=== PATIENT | female | born 1935 | race Caucasian/White ===

== ENCOUNTER → 2016-08-09 | Outpatient (CLI) | payer OTHER ==
[~2016-08-09] MED LIST: ACET-1256 PO; ASPEC81 PO; CMD1 PO; EYE RELIEF; FRRG PO; GLC500 PO; MCR5 PO; MULT-506 PO; OXYSR10 PO; SALINE NASAL SPRAY; SALONPAS TD; SIMV10TA2 PO; [UNRECOGNIZED DRUG - OTHER]
[2016-08-09 13:55] LABS: ALB/GLOB RATIO 1.4 (0.9-2); ALT/SGPT 22 U/L (12-78); AST/SGOT 11 U/L (15-37); BLOOD UREA NITROGEN 14 mg/dl (7-18); BUN/CREATININE RATIO 18.3 (10-20); CALCIUM 8.9 mg/dl (8.5-10.1); CARBON DIOXIDE 27 mmol/L (21-32); CHLORIDE 106 mmol/L (98-107); CHOLESTEROL 135 mg/dl (0-200); CREATININE 0.76 mg/dl (0.60-1.20); GLUCOSE 139 mg/dl (70-99); POTASSIUM 4.1 mmol/L (3.5-5.1); SODIUM 142 mmol/L (136-145); TRIGLYCERIDES 123 mg/dl (0-150); VERY LOW DENSITY LIPOPROT CALC 25 mg/dl
[2016-08-09 13:56] LABS: ALKALINE PHOSPHATASE 89 U/L (45-117); CHOLESTEROL/HDL RATIO 3.4; HDL CHOLESTEROL 40 mg/dl
[2016-08-09 13:59] LABS: ESTIMATED AVERAGE GLUCOSE 163 mg/dl; HA1C FLAG Normal (Normal)
== END | disposition home or self-care (01) ==
LOC: C.LABSPEC 12:45
PROVIDERS: ATTEND Internal Medicine
DX: E11.65 Type 2 diabetes mellitus with hyperglycemia (principal); E78.5 Hyperlipidemia, unspecified

== ENCOUNTER → 2016-09-30 | Outpatient (CLI) | payer OTHER ==
--- NOTE | 2016-09-30 15:49 | MAMMOGRAPHY REPORT ---
BILATERAL DIGITAL SCREENING MAMMOGRAM WITH CAD: 09/30/2016 CLINICAL HISTORY: Routine screening. Patient has no complaints. TECHNIQUE: Bilateral CC, MLO and repeat left MLO view with anterior compression were obtained. Curr ent study was also evaluated with a Computer Aided Detection (CAD) system. COMPARISON: Comparison is made to exams dated: 09/28/2015 mammogram, 09/23/2014 mammogram, 09/17/2013 mammogram, 09/10/2012 mammogram, 09/10/2011 mammogram, and 08/16/2010 mammogram - [facility] enter. BREAST COMPOSITION: The tissue of both breasts is heterogeneously dense, which may obscure small ma sses. FINDINGS: There are moderate vascular calcifications in the breasts. Scattered benign round and rim calcifications. No suspicious mass, architectural distortion or cluster of microcalcifications is seen. IMPRESSION: ACR BI-RADS CATEGORY 1: NEGATIVE There is no mammographic evidence of malignancy. A 1 year screening mammogram is recommended. The p atient will receive written notification of the results. Approximately 10% of breast cancers are not detected with mammography. A negative mammographic repor t should not delay biopsy if a clinically suggestive mass is present. Cherise Good M.D. ay/:09/30/2016 15:35:18 Executive Receptionist: Josseline Lemus, [facility] letter sent: Normal 1/2 BI-RADS Code: ACR BI-RADS Category 1: Negative
== END | disposition home or self-care (01) ==
LOC: C.MAMM 11:18
PROVIDERS: ATTEND Internal Medicine
DX: Z12.31 Encounter for screening mammogram for malignant neoplasm of breast (principal)

== ENCOUNTER → 2016-12-13 | Outpatient (CLI) | payer OTHER ==
[2016-12-13 13:56] LABS: ESTIMATED AVERAGE GLUCOSE 166 mg/dl; HA1C FLAG Normal (Normal)
[2016-12-13 14:04] LABS: BLOOD UREA NITROGEN 13 mg/dl (7-18); BUN/CREATININE RATIO 17.6 (10-20); CARBON DIOXIDE 25 mmol/L (21-32); CHLORIDE 110 mmol/L (98-107); CREATININE 0.71 mg/dl (0.60-1.20); GLUCOSE 82 mg/dl (70-99); POTASSIUM 3.9 mmol/L (3.5-5.1); SODIUM 144 mmol/L (136-145)
[2016-12-13 14:07] LABS: CHOLESTEROL 172 mg/dl (0-200); CHOLESTEROL/HDL RATIO 4.8; HDL CHOLESTEROL 36 mg/dl; TRIGLYCERIDES 169 mg/dl (0-150); VERY LOW DENSITY LIPOPROT CALC 34 mg/dl
== END | disposition home or self-care (01) ==
LOC: C.LABSPEC 12:48
PROVIDERS: ATTEND Internal Medicine
DX: M19.90 Unspecified osteoarthritis, unspecified site (principal); E78.5 Hyperlipidemia, unspecified; E11.9 Type 2 diabetes mellitus without complications

== ENCOUNTER → 2016-12-16 | Outpatient (CLI) | payer OTHER ==
[2016-12-16 16:41] LABS: RATIO 13.1 mcg/mg (0-30.0)
== END | disposition home or self-care (01) ==
LOC: C.LABSPEC 15:12
PROVIDERS: ATTEND Internal Medicine
DX: E11.65 Type 2 diabetes mellitus with hyperglycemia (principal)

== ENCOUNTER → 2017-04-18 | Outpatient (CLI) | payer OTHER ==
[2017-04-18 14:20] LABS: BLOOD UREA NITROGEN 13 mg/dl (7-18); BUN/CREATININE RATIO 18.3 (10-20); CALCIUM 9.1 mg/dl (8.5-10.1); CARBON DIOXIDE 25 mmol/L (21-32); CHLORIDE 107 mmol/L (98-107); CREATININE 0.74 mg/dl (0.60-1.20); GLUCOSE 122 mg/dl (70-99); POTASSIUM 3.9 mmol/L (3.5-5.1); SODIUM 140 mmol/L (136-145)
[2017-04-18 14:23] LABS: CHOLESTEROL 157 mg/dl (0-200); CHOLESTEROL/HDL RATIO 3.7; HDL CHOLESTEROL 42 mg/dl; TRIGLYCERIDES 113 mg/dl (0-150); VERY LOW DENSITY LIPOPROT CALC 23 mg/dl
[2017-04-18 14:33] LABS: ESTIMATED AVERAGE GLUCOSE 163 mg/dl; HA1C FLAG Normal (Normal)
== END | disposition home or self-care (01) ==
LOC: C.LABSPEC 12:31
PROVIDERS: ATTEND Internal Medicine
DX: E11.65 Type 2 diabetes mellitus with hyperglycemia (principal); Z00.00 Encounter for general adult medical examination without abnormal findings; E78.5 Hyperlipidemia, unspecified

== ENCOUNTER → 2017-04-23 | Outpatient (CLI) | payer OTHER | END | disposition home or self-care (01) | LOC: C.LABSPEC 12:42 | PROVIDERS: ATTEND Internal Medicine | DX: Z12.11 Encounter for screening for malignant neoplasm of colon (principal) ==

== ENCOUNTER → 2017-08-20 | Outpatient (CLI) | payer OTHER ==
[2017-08-20 13:08] LABS: HEMOGLOBIN A1C 7.4 % (4.5-5.6)
[2017-08-20 13:19] LABS: ALBUMIN 3.7 gm/dl (3.4-5.0); ALT/SGPT 24 U/L (12-78); BLOOD UREA NITROGEN 11 mg/dl (7-18); CALCIUM 9.4 mg/dl (8.5-10.1); CARBON DIOXIDE 28 mmol/L (21-32); CHOLESTEROL 137 mg/dl (0-200); CREATININE 0.66 mg/dl (0.60-1.20); GLUCOSE 129 mg/dl (70-99); POTASSIUM 3.9 mmol/L (3.5-5.1); SODIUM 141 mmol/L (136-145)
[2017-08-20 13:21] LABS: ALKALINE PHOSPHATASE 94 U/L (45-117); AST/SGOT 14 U/L (15-37); LDL CHOLESTEROL (DIRECT) 86 mg/dl; TOTAL PROTEIN 6.6 gm/dl (6.4-8.2)
== END | disposition home or self-care (01) ==
LOC: C.LABSPEC 12:15
PROVIDERS: ATTEND Internal Medicine
DX: E78.5 Hyperlipidemia, unspecified (principal); E11.9 Type 2 diabetes mellitus without complications; I35.0 Nonrheumatic aortic (valve) stenosis

== ENCOUNTER → 2017-10-06 | Outpatient (CLI) | payer OTHER ==
--- NOTE | 2017-10-07 12:46 | MAMMOGRAPHY REPORT ---
BILATERAL DIGITAL SCREENING MAMMOGRAM TOMOSYNTHESIS WITH CAD: 10/06/2017 CLINICAL HISTORY: Routine screening. Patient has no complaints. TECHNIQUE: Breast tomosynthesis in addition to standard 2D mammography was performed. Current study was also evaluated with a Computer Aided Detection (CAD) system. COMPARISON: Comparison is made to exams dated: 09/30/2016 mammogram, 09/28/2015 mammogram, 09/23/2014 m ammogram, 09/17/2013 mammogram, 09/10/2012 mammogram, and 09/10/2011 mammogram - [facility]. BREAST COMPOSITION: The tissue of both breasts is heterogeneously dense, which may obscure small mas ses. FINDINGS: The parenchymal pattern is similar to prior mammograms. There are marked vascular calcifi cations in the breasts. Scattered stable round, punctate and coarse calcifications as well. No deve loping mass, architectural distortion or cluster of suspicious microcalcifications is seen in either breast. IMPRESSION: ACR BI-RADS CATEGORY 2: BENIGN There is no mammographic evidence of malignancy. A 1 year screening mammogram is recommended. The pa tient will receive written notification of the results. Approximately 10% of breast cancers are not detected with mammography. A negative mammographic report should not delay biopsy if a clinically suggestive mass is present. Cherise Good M.D. ay/:10/06/2017 16:07:40 Intermediate Frame Tender: Pratima MCCANN(R)(M), [facility] letter sent: Normal 1/2 BI-RADS Code: ACR BI-RADS Category 2: Benign
== END | disposition home or self-care (01) ==
LOC: C.MAMM 10:54
PROVIDERS: ATTEND Internal Medicine
DX: Z12.31 Encounter for screening mammogram for malignant neoplasm of breast (principal)

== ENCOUNTER 2021-01-28 12:44 | Observation (INO) ==
[2021-01-28] MEDS ORDERED: ALBUTEROL HFA 8 GM INHALER INH ONE (13:01)
[2021-01-28] MEDS ORDERED: SODIUM CHLORIDE 0.9% 1000ML 1,000 ML IV ONE (13:01)
[2021-01-28] MEDS ORDERED: guaiFENesin 600 MG TABCR PO STA (13:01)
[2021-01-28] MEDS ORDERED: ACETAMINOPHEN 1,000 MG/100 ML VIAL IV STA (13:01)
--- NOTE | 2021-01-28 13:28 | Emergency Department Note ---
Impression & Plan COVID-19, Acute UTI, Dehydration ED Provider Note NAME: DOMINICK HALL AGE: 85 SEX: F ARRIVES VIA: Ambulance INFORMANT: Patient, ED PROVIDER(S): Ronny Guillory MD CHIEF COMPLAINT: Weakness, sob, covid-19 PLAN: Disposition: Admit MEDICAL DECISION MAKING: The patient is a pleasant 85-year-old woman with a past medical history of diabetes, hyperlipidemia who presents to the emergency department with shortness of breath and body aches after being seen the emergency department on 01/26 diagnosed with COVID-19 after developing symptoms of congestion on 01/24. She reports she was trying to use the pulse oximeter she was given an did not think she could get it to work and when she called the helpline she was instructed to call 911. Upon EMS arrival her O2 saturation was normal however she was brought to the hospital for evaluation. She reports worsening body aches particularly in her legs. She reports decreased appetite and nausea but denies vomiting. She denies diarrhea. She denies any urinary symptoms. On arrival the patient is anxious appearing but no acute distress, afebrile with stable vital signs. She appears clinically dry. She has a scant intermittent wheeze and lungs are otherwise clear. Abdomen is benign. There is no lower extremity edema, coloration or tenderness. WBC 2.5 with lymphopenia 0.42 consistent with patient's known COVID-19 infection. Hemoglobin and platelets within normal limits. Chemistry without metabolic acidosis. BUN/creatinine> 30 consistent with the patient's clinical dry appearance. Glucose was 59 and so the patient was given food and juice. Lecture lites and LFTs without significant abnormality. Troponin 0 0.027, within normal limits. Lipase is not elevated. UA is suspicious for infection with nitrites, leukoesterase, WBCs and 4+ bacteria albeit with epithelial cells present. COVID-19 PCR was repleted and confirms the patient's previously diagnosed COVID-19 infection. Upon reevaluation patient did feel somewhat improved after IV fluid hydration, APAP, guaifenesin and albuterol MDI. She was treated for UTI with initial dose of ceftriaxone. I did review the patient's findings with her as well as her daughter over the phone. Ultimately the patient's daughter was concerned about her weakness in the setting of her Covid and UTI and given that the patient lives at home with her grandson who is suffering himself from significant Covid symptoms she did not feel she was safe to go home at this time. Patient was ultimately agreeable with plan for admission. Case was discussed with JOHN Rasmussen hospitalist, who will evaluate the patient for admission. Triage Nursing notes reviewed and agree them. Additional history obtained from daughter. Prior medical records reviewed Vital Signs: reviewed and remarkable for no significant abnormalities Differential diagnosis: Infection, dehydration, metabolic abnormality, hypo/hyperglycemia, electrolyte disturbance, anemia, hypoxia, cardiac sources, intracerebral event, toxicologic, neurologic, as well as other pathologies. ER treatment provided: See below. Diagnostics interpreted by me: ECG: Normal sinus rhythm, 68 bpm, right bundle branch block, no overt ST elev ation or depression, QTC 495, QRS 122. Cardiac Monitoring: An order for continuous cardiac monitoring was placed and demonstrated normal sinus rhythm, 60 bpm, no ectopy. Laboratory studies: See below Imaging studies: See below Consultation(s): Case was discussed with JOHN Rasmussen hospitalist, who will evaluate the patient for admission. HPI: The patient is a pleasant 85-year-old woman with a past medical history of diabetes, hyperlipidemia who presents to the emergency department with shortness of breath and body aches after being seen the emergency department on 01/26 diagnosed with COVID-19 after developing symptoms of congestion on 01/24. She reports she was trying to use the pulse oximeter she was given an did not think she could get it to work and when she called the helpline she was instructed to call 911. Upon EMS arrival her O2 saturation was normal however she was brought to the hospital for evaluation. She reports worsening body aches particularly in her legs. She reports decreased appetite and nausea but denies vomiting. She denies diarrhea. She denies any urinary symptoms. ROS: See above HPI for pertinent positives & negatives. A total of 10 systems reviewed and were otherwise negative. PAST MEDICAL HISTORY:See Below PAST SURGICAL HISTORY:See Below FAMILY HISTORY:See Below SOCIAL HISTORY:See Below HOME MEDICATIONS:See Below ALLERGIES:See Below VITALS:See Below PHYSICAL EXAMINATION: GENERAL: Awake, alert, uncomfortable/fatigued-appearing, in no distress HENT: Normocephalic, atraumatic. Oropharynx with dry mucous membranes and otherwise unremarkable. EYES: Normal conjunctiva. Sclera non-icteric. NECK: Supple. No nuchal rigidity. FROM. No JVD. RESPIRATORY: Scant intermittent wheeze and lungs are otherwise clear CARDIAC: Regular rate, normal rhythm. Extremities warm and well perfused. Pulses equal. ABDOMEN: Soft, non-distended. No tenderness to palpation. No rebound or guarding. No masses. RECTAL: Deferred. MUSCULOSKELETAL: Chest examination reveals no tenderness. The back is sy mmetrical on inspection without obvious abnormality. There is no CVA tenderness to palpation. No joint edema. LOWER EXTREMITIES: Calves are equal size bilaterally and non-tender. No edema. No discoloration. NEURO: Normal sensorium. No sensory or motor deficits noted. SKIN: No rash or jaundice noted. 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) COVID-19 Diabetes mellitus (02/16/11) Kidney stone (02/16/11) Family History Other Family history non-contributory Social History Smoking Status: Never smoker Hx Alcohol Use: No Hx Substance Use: No Preferred Language: Georgian Feels Safe at Home: Yes Allergies Allergies Allergy/AdvReac Type Severity Reaction Status Date / Time No Known Allergies Allergy Unverified 01/28/21 15:12 Home Meds Home Medications Medication Instructions Recorded Confirmed glipizide 10 mg tablet 20 mg PO BID 01/26/21 01/28/21 metformin 500 mg tablet 500 mg PO QAM 01/26/21 01/28/21 metformin 850 mg tablet 850 mg PO QPM 01/26/21 01/28/21 propylene glycol 0.6 % eye drops 1 drp OPHTHALMIC (EYE) QID PRN 01/26/21 01/28/21 (Systane Balance) simvastatin 10 mg tablet 10 mg PO DAILY 01/26/21 01/28/21 sodium chloride 0.65 % nasal spray 1 spray INTRANASAL BID PRN 01/26/21 01/28/21 aerosol (Saline Mist) Results & Data (ED) Vital Signs Vital Signs - 24 hr 01/28/21 13:00 01/28/21 13:14 01/28/21 13:30 Temperature 36.6 C Temperature Source Oral Pulse Rate 68 66 Pulse Rate [Radial] Pulse Rate from SpO2 Sensor 67 Respiratory Rate 27 H 19 Respiratory Depth Normal Respiratory Pattern Regular Blood Pressure 115/58 L 104/59 L Blood Pressure [Left Arm] Blood Pressure Mean 77 74 Blood Pressure Mean [Left Arm] Pulse Oximetry 98 98 99 Oxygen Delivery Method Room Air Room Air Room Air Sepsis Recent Fever Within 48 Hours No Sepsis New/Unexplained Change in Mental Status No Sepsis Action Taken by Nursing No Action Required 01/28/21 14:00 01/28/21 15:45 01/28/21 17:51 Temperature Temperature Source Pulse Rate 66 Pulse Rate [Radial] 81 81 Pulse Rate from SpO2 Sensor 66 Respiratory Rate 28 H 16 16 Respiratory Depth Respiratory Pattern Blood Pressure 110/70 Blood Pressure [Left Arm] 120/63 138/68 Blood Pressure Mean 83 Blood Pressure Mean [Left Arm] 82 91 Pulse Oximetry 98 96 96 Oxygen Delivery Method Room Air Room Air Room Air Sepsis Recent Fever Within 48 Hours Sepsis New/Unexplained Change in Mental Status Sepsis Action Taken by Nursing Laboratory Data Attestation: I reviewed the patient's lab results. Result diagrams: 01/28/21 13:15 01/28/21 13:15 Lab Results 01/28/21 01/28/21 01/28/21 Range/Units 13:15 13:15 13:15 WBC 2.57 L (4.8-10.8) K/uL RBC 4.08 L (4.2-5.4) M/uL Hgb 12.5 (12.0-16.0) g/dL Hct 36.0 L (37-47) % MCV 88.2 (80-100) fL MCH 30.6 (25-34) pg MCHC 34.7 (32-36) g/dL RDW Std Deviation 41.1 (36.4-46.3) fL RDW Coeff of Tabatha 12.7 (11.5-14.5) % Plt Count 138 (130-400) K/uL MPV 10.1 (7.4-10.4) fL Immature Gran % (Auto) 0.0 % Neut % (Auto) 68.9 % Lymph % (Auto) 16.3 % [place] % (Auto) 14.4 % Eos % (Auto) 0.0 % Baso % (Auto) 0.4 % Neut # (Auto) 1.77 (1.4-6.5) K/uL Lymph # (Auto) 0.42 L (1.2-3.4) K/uL [place] # (Auto) 0.37 (0.11-0.59) K/uL Eos # (Auto) 0.00 (0-0.5) K/uL Baso # (Auto) 0.01 (0-0.2) K/uL Immature Gran # (Auto) 0.00 (0.00-0.02) K/uL PT 10.3 (9.0-12.0) Seconds INR 1.0 (0.9-1.1) APTT 30.0 (21.0-31.0) Seconds PTT Ratio 1.1 Sodium 136 (136-145) mmol/L Potassium 3.8 (3.5-5.1) mmol/L Chloride 102 (98-107) mmol/L Carbon Dioxide 22 (21-32) mmol/L Anion Gap 12.0 H (3-11) BUN 20 H (7-18) mg/dl Creatinine 0.60 (0.6-1.2) mg/dl Est Cr Clr Drug Dosing 57.9 ml/min Est GFR ( Amer) 95.7 ml/min Est GFR (Non-Af Amer) 82.5 ml/min BUN/Creatinine Ratio 33.1 H (10-20) Glucose 59 L (70-99) mg/dl Calcium 8.9 (8.5-10.1) mg/dl Phosphorus 3.2 (2.5-4.9) mg/dl Magnesium 1.9 (1.8-2.4) mg/dl Total Bilirubin 0.5 (0.2-1) mg/dl Direct Bilirubin TNP AST 36 (15-37) U/L ALT 25 (12-78) U/L Alkaline Phosphatase 70 (45-117) U/L Total Creatine Kinase 221 H (26-192) U/L Troponin I 0.027 (0-0.045) ng/ml Total Protein 6.3 L (6.4-8.2) gm/dl Albumin 3.3 L (3.4-5.0) gm/dl Globulin 3.0 (2.5-4.0) gm/dl Albumin/Globulin Ratio 1.1 (0.9-2) Lipase 85 (73-393) U/L Specimen Hemolysis Urine Color Urine Appearance (Clear) Urine pH (4.5-7.5) Ur Specific [place] (1.000-1.030) Urine Protein (Negative) Urine Glucose (UA) (Negative) Urine Ketones (Negative) Urine Blood (Negative) Urine Nitrite (Negative) Urine Bilirubin (Negative) Urine Urobilinogen (Negative) Ur Leukocyte Esterase (Negative) Urine WBC (Auto) (0-5) /hpf Urine RBC (Auto) (0-4) /hpf U Hyaline Cast (Auto) (0-5) /lpf U Epithel Cells (Auto) (0-5) /lpf Urine Bacteria (Auto) (Negative) COVID-19 Eval Order SARS-CoV-2 (PCR) (Negative) 01/28/21 01/28/21 01/28/21 Range/Units 14:01 14:01 14:01 WBC (4.8-10.8) K/uL RBC (4.2-5.4) M/uL Hgb (12.0-16.0) g/dL Hct (37-47) % MCV (80-100) fL MCH (25-34) pg MCHC (32-36) g/dL RDW Std Deviation (36.4-46.3) fL RDW Coeff of Tabatha (11.5-14.5) % Plt Count (130-400) K/uL MPV (7.4-10.4) fL Immature Gran % (Auto) % Neut % (Auto) % Lymph % (Auto) % [place] % (Auto) % Eos % (Auto) % Baso % (Auto) % Neut # (Auto) (1.4-6.5) K/uL Lymph # (Auto) (1.2-3.4) K/uL [place] # (Auto) (0.11-0.59) K/uL Eos # (Auto) (0-0.5) K/uL Baso # (Auto) (0-0.2) K/uL Immature Gran # (Auto) (0.00-0.02) K/uL PT (9.0-12.0) Seconds INR (0.9-1.1) APTT (21.0-31.0) Seconds PTT Ratio Sodium (136-145) mmol/L Potassium (3.5-5.1) mmol/L Chloride (98-107) mmol/L Carbon Dioxide (21-32) mmol/L Anion Gap (3-11) BUN (7-18) mg/dl Creatinine (0.6-1.2) mg/dl Est Cr Clr Drug Dosing ml/min Est GFR ( Amer) ml/min Est GFR (Non-Af Amer) ml/min BUN/Creatinine Ratio (10-20) Glucose (70-99) mg/dl Calcium (8.5-10.1) mg/dl Phosphorus (2.5-4.9) mg/dl Magnesium (1.8-2.4) mg/dl Total Bilirubin (0.2-1) mg/dl Direct Bilirubin AST (15-37) U/L ALT (12-78) U/L Alkaline Phosphatase (45-117) U/L Total Creatine Kinase (26-192) U/L Troponin I (0-0.045) ng/ml Total Protein (6.4-8.2) gm/dl Albumin (3.4-5.0) gm/dl Globulin (2.5-4.0) gm/dl Albumin/Globulin Ratio (0.9-2) Lipase (73-393) U/L Specimen Hemolysis Urine Color Yellow Urine Appearance Clear (Clear) Urine pH 6.0 (4.5-7.5) Ur Specific [place] 1.007 (1.000-1.030) Urine Protein Negative (Negative) Urine Glucose (UA) Negative (Negative) Urine Ketones 2+ H (Negative) Urine Blood Negative (Negative) Urine Nitrite Positive A (Negative) Urine Bilirubin Negative (Negative) Urine Urobilinogen Negative (Negative) Ur Leukocyte Esterase 2+ H (Negative) Urine WBC (Auto) 10-30 H (0-5) /hpf Urine RBC (Auto) 0-4 (0-4) /hpf U Hyaline Cast (Auto) 0 (0-5) /lpf U Epithel Cells (Auto) 20-30 H (0-5) /lpf Urine Bacteria (Auto) 4+ H (Negative) COVID-19 Eval Order Covid19 at [facility] SARS-CoV-2 (PCR) POSITIVE A* (Negative) Administered Medications Discontinued Medications Albuterol (Albuterol Hfa 8 Gm Inhaler) 2 puffs INH NOW ONE Stop: 01/28/21 13:02 Last Admin: 01/28/21 13:54 Dose: 2 puffs Documented by: [id number] Guaifenesin (Guaifenesin 600 Mg Tabcr) 600 mg PO NOW STA Stop: 01/28/21 13:02 Last Admin: 01/28/21 13:54 Dose: 600 mg Documented by: [id number] Acetaminophen (Ofirmev) 1,000 mg in 100 mls @ 400 mls/hr IV NOW STA Stop: 01/28/21 13:15 Last Infusion: 01/28/21 14:08 Dose: 0 mls/hr Documented by: [id number] Admin: 01/28/21 13:53 Dose: 400 mls/hr Documented by: [id number] Sodium Chloride (Nss 1000ml) 1,000 mls @ 999 mls/hr IV .Q1H1M ONE Stop: 01/28/21 14:01 Last Infusion: 01/28/21 14:21 Dose: 0 mls/hr Documented by: [id number] Admin: 01/28/21 13:17 Dose: 999 mls/hr Documented by: [id number] Ceftriaxone Sodium (Rocephin) 2,000 mg in 70 mls @ 140 mls/hr IV NOW STA Stop: 01/28/21 15:44 Last Infusion: 01/28/21 16:15 Dose: 0 mls/hr Documented by: [id number] Admin: 01/28/21 15:45 Dose: 140 mls/hr Documented by: [id number] Imaging Data Radiologist's Impression: Chest X-Ray 01/28/21 13:03 SINGLE VIEW CHEST CLINICAL HISTORY: Atypical chest pain. Covid FINDINGS: An AP, portable, upright chest radiograph is compared to study dated 01/26/2021 and correlated with chest CT dated 01/22/2011. The heart is enlarged noting atherosclerotic calcification of the thoracic aorta. The pulmonary vasculature is noncongested. Chronic interstitial thickening is similar to previous. Bibasilar opacities likely represent scarring/atelectasis. No large pleural effusion or pneumothorax is seen. The skeletal structures are osteopenic. The bony thorax is grossly intact. IMPRESSION: 1. Cardiomegaly without radiographic evidence of congestive failure. 2. Dependent airspace opacities likely represent scarring/atelectasis. Correlate clinically for evidence of a superimposed infectious/inflammatory pneumonitis. ACT 112: Negative or not required by law. Electronically signed by: Rudy Peters M.D. 01/28/2021 2:49 PM Discharge Plan Visit Data Chief Complaint: Shortness of Breath/Dyspnea Stated Complaint: Shortness of Breath ED Provider: Ronny Guillory Discharge Problem: COVID-19, Acute UTI, Dehydration Discharge Instructions Interventions: ED Discharge Assessment Last Done: 01/28/21 22:17
[2021-01-28 13:31] LABS: Basophils # (auto) 0.01 K/uL (0-0.2); Basophils % (auto) 0.4 %; Hemoglobin 12.5 g/dL (12.0-16.0); Lymphocytes # (auto) 0.42 K/uL (1.2-3.4); Lymphocytes % (auto) 16.3 %; Mean Corpuscular Hemoglobin 30.6 pg (25-34); Mean Corpuscular Hgb Conc 34.7 g/dL (32-36); Mean Corpuscular Volume 88.2 fL (80-100); Mean Platelet Volume 10.1 fL (7.4-10.4); Monocytes # (auto) 0.37 K/uL (0.11-0.59); Monocytes % (auto) 14.4 %; Neutrophils # (auto) 1.77 K/uL (1.4-6.5); Neutrophils % (auto) 68.9 %; Platelet Count 138 K/uL (130-400); RDW Coefficient of Variation 12.7 % (11.5-14.5); RDW Standard Deviation 41.1 fL (36.4-46.3); Red Blood Count 4.08 M/uL (4.2-5.4); White Blood Count 2.57 K/uL (4.8-10.8)
[2021-01-28 13:43] LABS: Partial Thromboplastin Ratio 1.1; Prothrombin Time 10.3 Seconds (9.0-12.0)
[2021-01-28 14:04] LABS: Alanine Aminotransferase 25 U/L (12-78); Albumin Globulin Ratio 1.1 (0.9-2); Albumin Level 3.3 gm/dl (3.4-5.0); Alkaline Phosphatase 70 U/L (45-117); Aspartate Aminotransferase 36 U/L (15-37); BUN Creatinine Ratio 33.1 (10-20); Bilirubin,Total 0.5 mg/dl (0.2-1); Blood Urea Nitrogen 20 mg/dl (7-18); Calcium 8.9 mg/dl (8.5-10.1); Carbon Dioxide 22 mmol/L (21-32); Chloride 102 mmol/L (98-107); Creatine Kinase 221 U/L (26-192); Creatinine Clr Calc Pharmacy 57.9 ml/min; Est GFR (African American) 95.7 ml/min; Est GFR (Non-African American) 82.5 ml/min; Glucose 59 mg/dl (70-99); Lipase 85 U/L (73-393); Magnesium 1.9 mg/dl (1.8-2.4); Phosphorus 3.2 mg/dl (2.5-4.9); Potassium 3.8 mmol/L (3.5-5.1); Sodium 136 mmol/L (136-145); Total Protein 6.3 gm/dl (6.4-8.2); Troponin I 0.027 ng/ml (0-0.045)
[2021-01-28 14:33] LABS: Appearance Urine Clear (Clear); Bacteria Urine Automated 4+ (Negative); Bilirubin Urine Negative (Negative); Blood Urine Negative (Negative); Cast Urine Automated 0 /lpf (0-5); Color Urine Yellow; Epithelial Cell Urine Auto 20-30 /lpf (0-5); Glucose Urine UA Negative (Negative); Ketones Urine 2+ (Negative); Leukocyte Esterase Urine 2+ (Negative); Nitrite Urine Positive (Negative); Protein Urine Negative (Negative); RBC Urine Automated 0-4 /hpf (0-4); Specific Gravity Urine 1.007 (1.000-1.030); Urobilinogen Urine Negative (Negative)
--- NOTE | 2021-01-28 14:51 | XRay Report ---
SINGLE VIEW CHEST CLINICAL HISTORY: Atypical chest pain. Covid FINDINGS: An AP, portable, upright chest radiograph is compared to study dated 01/26/2021 and correlat ed with chest CT dated 01/22/2011. The heart is enlarged noting atherosclerotic calcification of the t horacic aorta. The pulmonary vasculature is noncongested. Chronic interstitial thickening is similar to previous. Bibasilar opacities likely represent scarring/atelectasis. No large pleural effusion or pneumothorax is seen. The skeletal structures are osteopenic. The bony thorax is grossly intact. IMPRESSION: 1. Cardiomegaly without radiographic evidence of congestive failure. 2. Dependent airspace opacities likely represent scarring/atelectasis. Correlate clinically for evide nce of a superimposed infectious/inflammatory pneumonitis. ACT 112: Negative or not required by law. Electronically signed by: Rudy Peters M.D. 01/28/2021 2:49 PM
[2021-01-28] MEDS ORDERED: cefTRIAXone SODIUM 2,000 MG/70 ML BAG IV STA (15:15)
--- NOTE | 2021-01-28 20:10 | History & Physical Report ---
Date of Service January 28, 2021 Assessment & Plan (1) Pneumonia due to 2019 novel coronavirus: Plan: Jeannie is a 85-year-old female with a past medical history of type 2 diabetes who presents to the hospital with concern for weakness in the setting of Covid. Weakness, fatigue 2/2 Covid pneumonia No hypoxia Afebrile in ER Poor p.o. intake, volume depleted - XR: Cardiomegaly without radiographic evidence of congestive failure. Dependent airspace opacities likely represent scarring/atelectasis. Correlate clinically for evidence of a superimposed infectious/inflammatory pneumonitis. Concern from family for inadequate p.o. intake and inability to provide safe en vironment at home due to patient's weakness Admit to Covid unit for observation No wheezing on exam Incentive spirometry, flutter as tolerated SPO2 goal 90% PT/OT Troponin normal (2) Diabetes mellitus: Plan: Type 2 diabetes mellitus Hold home antiglycemic's Lantus 6 units, correction factor 65, carb ratio 22 Glucose checks AC/at bedtime BMP daily (3) Elevated CK: Plan: Mildly elevated CK Patient reports was in bed for 2 days, slept most of the time and did not eat ? Mild rhabdo Trend CK, BMP daily, IV fluid maintenance support (4) HLD (hyperlipidemia): Plan: HLD Continue simvastatin 10 mg daily (5) Asymptomatic bacteriuria: Plan: Asymptomatic bacteriuria UA on admission with bacteria, leukocyte esterase, nitrates, ketones but large amounts of epithelial cells Patient reports no dysuria, increased frequency, change in urination, flank pain No leukocytosis Received 1 dose of Rocephin on ER admission Defer additional antibiotics, follow clinically DVT PPx: COVID Dosed Lovenox Dispo: Med/Surg Diet: Regular, NSS+KCL 100cc/hr while PO improving CODE STATUS: Full Code History of Present Illness Chief Complaint: Weakness Primary Care Provider: Yuri Michael MD Jeannie is a 85-year-old female with a past medical history of type 2 diabetes who presents to the hospital with concern for weakness in the setting of Covid. Jeannie areports symptoms began Friday with general malaise, decreased appetite, and some nausea. Was seen at the ER and was diagnosed with COVID yesterday and was discharged home. No fevers/chills, but endorses being generally cold. Endorses shortness of breath when 'uptight or anxious' no shortness of breath at rest. Reports she had diarrhea last night, more formed today. No chest pain, no chest pressure, no palpitations. Reports decreased PO intake, no PO intake x2 days and 'all I did was sleep.' She endorses decreased appetite, denies abdominal pain. Reports that she was too weak and wiped out to get out of bed for 2 days, she lives with her grandson at home and can normally ambulate independently but her family expressed concern that she was unsafe for home and they were not able to care for her especially since her grandson also has Covid at this time. Versus lower extremity muscle aches/cramps. She reports she has been urinating normally, and has not had any dysuria, urinary frequency, urinary retention, or other urinary symptoms. Medical History: Reviewed Surgical History: Reviewed Family History: Reviewed Allergies: No known drug allergies Social History: Denies tobacco, alcohol, recreational drug use. Lives with her grandson, independently ambulatory at baseline CODE STATUS: Full code discussed with patient Allergies Allergy/AdvReac Type Severity Reaction Status Date / Time No Known Allergies Allergy Unverified 01/28/21 15:12 Home Medications Medication Instructions Recorded Confirmed Type glipizide 10 mg tablet 20 mg PO BID 01/26/21 01/28/21 History metformin 500 mg tablet 500 mg PO QAM 01/26/21 01/28/21 History metformin 850 mg tablet 850 mg PO QPM 01/26/21 01/28/21 History propylene glycol 0.6 % eye drops 1 drp OPHTHALMIC (EYE) QID PRN 01/26/21 01/28/21 History (Systane Balance) simvastatin 10 mg tablet 10 mg PO DAILY 01/26/21 01/28/21 History sodium chloride 0.65 % nasal spray 1 spray INTRANASAL BID PRN 01/26/21 01/28/21 History aerosol (Saline Mist) Past Med/Surg History Medical History 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) Diabetes mellitus (02/16/11) Kidney stone (02/16/11) Social History (Updated 01/28/21 @ 20:12 by Prabhu Falcon MD) Smoking Status: Never smoker Hx Alcohol Use: No Hx Substance Use: No Preferred Language: Syriac Feels Safe at Home: Yes Review of Systems Review of Systems: Constitutional: See HPI Eyes: Denies vision change ENT: Denies ear pain, sore throat, sinus pain Cardiovascular: Denies Chest pain, chest pressure, palpitations, extremity swelling Respiratory: Denies shortness of breath, cough, sputum production, difficulty breathing Gastrointestinal: See HPI Genitourinary: Denies dysuria, urinary frequency Musculoskeletal: See HPI Integumentary:Denies acute rash, lesions, bruising Neurological: Endorses some mild neuropathy without numbness in her left foot arch, otherwise denies headache, numbness, tingling, focal weakness Physical Exam Physical Exam: General: A&Ox3. NAD. Cooperative. HEENT: Atraumatic, normocephalic. Pulm: CTAB A&P. -wheezes, -rales, -rhonchi. Symmetrical chest rise. No increase work of breathing. No respiratory distress. Cardiac: RRR, -mrg. Radial pulses intact and symmetrical. Abdominal: Nontender, nondistended, soft. BS present. CRANIAL NERVES: II: Pupils equal and reactive, no relative afferent pupillary defect, no VF cuts III, IV, : EOM intact, no gaze preference or deviation, no nystagmus. V: normal sensation in V1, V2, and V3 segments bilaterally VII: no asymmetry, no nasolabial fold flattening VIII: normal hearing to speech IX, X: normal palatal elevation, no uvular deviation XI: 5/5 head turn and 5/5 shoulder shrug bilaterally XII: midline tongue protrusion MOTOR: RUE: 5/5 Elbow flexion/extension, wrist flexion/extension 5/5 robotics software engineer strength, finger flexion/extension, interosseus LUE: 5/5 Elbow flexion/extension, wrist flexion/extension 5/5 robotics software engineer strength, finger flexion/extension, interosseus RLE: 5/5 to hip flexion, ankle dorsiflexion/plantarflexion LLE: 5/5 to hip flexion, ankle dorsiflexion/plantarflexion SENSORY: Normal to touch in upper and lower extremities without deficit or asymmetry Results & Data Results & Data ([facility]) Vital Signs (Past 12 Hours) Vital Signs Temp Pulse Pulse Resp BP BP Pulse Ox 01/28/21 17:51 81 16 138/68 96 01/28/21 15:45 81 16 120/63 96 01/28/21 14:00 66 28 H 110/70 98 01/28/21 13:30 66 19 104/59 L 99 01/28/21 13:14 98 01/28/21 13:00 36.6 C 68 27 H 115/58 L 98 Laboratory Results Abnormal lab results 01/28/21 01/28/21 01/28/21 Range/Units 13:15 13:15 14:01 WBC 2.57 L (4.8-10.8) K/uL RBC 4.08 L (4.2-5.4) M/uL Hct 36.0 L (37-47) % Lymph # (Auto) 0.42 L (1.2-3.4) K/uL Anion Gap 12.0 H (3-11) BUN 20 H (7-18) mg/dl BUN/Creatinine Ratio 33.1 H (10-20) Glucose 59 L (70-99) mg/dl Total Creatine Kinase 221 H (26-192) U/L Total Protein 6.3 L (6.4-8.2) gm/dl Albumin 3.3 L (3.4-5.0) gm/dl Urine Ketones 2+ H (Negative) Urine Nitrite Positive A (Negative) Ur Leukocyte Esterase 2+ H (Negative) Urine WBC (Auto) 10-30 H (0-5) /hpf U Epithel Cells (Auto) 20-30 H (0-5) /lpf Urine Bacteria (Auto) 4+ H (Negative) SARS-CoV-2 (PCR) (Negative) 01/28/21 Range/Units 14:01 WBC (4.8-10.8) K/uL RBC (4.2-5.4) M/uL Hct (37-47) % Lymph # (Auto) (1.2-3.4) K/uL Anion Gap (3-11) BUN (7-18) mg/dl BUN/Creatinine Ratio (10-20) Glucose (70-99) mg/dl Total Creatine Kinase (26-192) U/L Total Protein (6.4-8.2) gm/dl Albumin (3.4-5.0) gm/dl Urine Ketones (Negative) Urine Nitrite (Negative) Ur Leukocyte Esterase (Negative) Urine WBC (Auto) (0-5) /hpf U Epithel Cells (Auto) (0-5) /lpf Urine Bacteria (Auto) (Negative) SARS-CoV-2 (PCR) POSITIVE A* (Negative) Diagnostic Findings Chest X-Ray 01/28/21 13:03 SINGLE VIEW CHEST CLINICAL HISTORY: Atypical chest pain. Covid FINDINGS: An AP, portable, upright chest radiograph is compared to study dated 01/26/2021 and correlated with chest CT dated 01/22/2011. The heart is enlarged noting atherosclerotic calcification of the thoracic aorta. The pulmonary vasculature is noncongested. Chronic interstitial thickening is similar to previous. Bibasilar opacities likely represent scarring/atelectasis. No large pleural effusion or pneumothorax is seen. The skeletal structures are osteopenic. The bony thorax is grossly intact. IMPRESSION: 1. Cardiomegaly without radiographic evidence of congestive failure. 2. Dependent airspace opacities likely represent scarring/atelectasis. Correlate clinically for evidence of a superimposed infectious/inflammatory pneumonitis. ACT 112: Negative or not required by law. Electronically signed by: Rudy Peters M.D. 01/28/2021 2:49 PM Code Status & VTE Plan Code Status Full PG Care Time/CCT Total # of Minutes Spent Total Time Spent with Patient: Total time spent is greater than 50% in coordination of care (as documented) at patient's floor/unit and/or counseling patient: Coding Level of Care Code 04129 Initial Inpt Care Lvl 3 Diagnoses Pneumonia due to 2019 novel coronavirus U07.1; J12.82 Diabetes mellitus E11.9 Elevated CK R74.8 HLD (hyperlipidemia) E78.5 Asymptomatic bacteriuria R82.71
[2021-01-28] MEDS ORDERED: GLUCOSE 40% GEL 15 GM TUBE PO PRN (22:37)
[2021-01-28] MEDS ORDERED: GLUCOSE 10 TABS/TUBE PO PRN (22:37)
[2021-01-28] MEDS ORDERED: DEXTROSE 50% 50 ML SYRINGE IV PRN (22:37)
[2021-01-28] MEDS ORDERED: GLUCAGON FOR INJ 1 MG VIAL SQ PRN (22:37)
[2021-01-28] MEDS: CARBOHYDRATES FOR HYPOGLYCEMIA PO PRN (22:45)
[2021-01-28] MEDS: POTASSIUM CHLORIDE 10 MEQ in SODIUM CHLORIDE 0.9% 1000ML 1,000 ML IV SCH (23:01)
[2021-01-28] MEDS: ENOXAPARIN INJ 40 MG/0.4 ML SYR SQ SCH (23:02)
[2021-01-28] MEDS: INSULIN ASPART 100 UNITS/ML 3 ML PEN SC SCH (23:04)
[2021-01-29] MEDS: ACETAMINOPHEN 325 MG TAB PO PRN ×2 (00:02→08:22)
[2021-01-29] MEDS: INSULIN GLARGINE SOLOSTAR 100 UNITS/ML 3 ML PEN SC SCH ×3 (00:13→21:26)
[2021-01-29 07:05] LABS: Hematocrit (blood only) 33.9 % (37-47); Hemoglobin 11.4 g/dL (12.0-16.0); Mean Corpuscular Hemoglobin 30.4 pg (25-34); Mean Corpuscular Hgb Conc 33.6 g/dL (32-36); Mean Corpuscular Volume 90.4 fL (80-100); Mean Platelet Volume 10.4 fL (7.4-10.4); Platelet Count 112 K/uL (130-400); RDW Standard Deviation 43.1 fL (36.4-46.3); Red Blood Count 3.75 M/uL (4.2-5.4); White Blood Count 1.66 K/uL (4.8-10.8)
[2021-01-29 07:32] LABS: Basophils # (auto) 0.01 K/uL (0-0.2); Basophils % (auto) 0.6 %; Eosinophils # (auto) 0.01 K/uL (0-0.5); Eosinophils % (auto) 0.6 %; Lymphocytes # (auto) 0.55 K/uL (1.2-3.4); Lymphocytes % (auto) 33.1 %; Monocytes # (auto) 0.16 K/uL (0.11-0.59); Monocytes % (auto) 9.6 %; Neutrophils # (auto) 0.93 K/uL (1.4-6.5); Neutrophils % (auto) 56.1 %
[2021-01-29 07:43] LABS: BUN Creatinine Ratio 17.9 (10-20); Creatinine Clr Calc Pharmacy 56.3 ml/min; Est GFR (African American) 95.1 ml/min; Est GFR (Non-African American) 82.1 ml/min; Potassium 3.8 mmol/L (3.5-5.1)
[2021-01-29] MEDS: INSULIN ASPART 100 UNITS/ML 3 ML PEN SC SCH ×4 (07:48→21:26)
[2021-01-29] MEDS: SIMVASTATIN 10 MG TAB PO SCH (08:22)
[2021-01-29] MEDS: POTASSIUM CHLORIDE 10 MEQ in SODIUM CHLORIDE 0.9% 1000ML 1,000 ML IV SCH (09:24)
[2021-01-29] MEDS: ENOXAPARIN INJ 40 MG/0.4 ML SYR SQ SCH ×2 (11:23→21:25)
--- NOTE | 2021-01-29 20:55 | Hospitalist Progress Note ---
Date of Service January 29, 2021 Assessment & Plan (1) Pneumonia due to 2019 novel coronavirus: Plan: Jeannie is a 85-year-old female with a past medical history of type 2 diabetes who presents to the hospital with concern for weakness in the setting of Covid. Weakness, fatigue 2/2 Covid pneumonia No hypoxia Afebrile in ER Poor p.o. intake, volume depleted - XR: Cardiomegaly without radiographic evidence of congestive failure. Dependent airspace opacities likely represent scarring/atelectasis. Correlate clinically for evidence of a superimposed infectious/inflammatory pneumonitis. Concern from family for inadequate p.o. intake and inability to provide safe en vironment at home due to patient's weakness Admit to Covid unit for observation No wheezing on exam Incentive spirometry, flutter as tolerated SPO2 goal 90% PT/OT Troponin normal -now on room air. Likely discharge in AM. (2) Diabetes mellitus: Plan: Type 2 diabetes mellitus Hold home antiglycemic's Lantus 6 units, correction factor 65, carb ratio 22 Glucose checks AC/at bedtime BMP daily (3) Elevated CK: Plan: Mildly elevated CK Patient reports was in bed for 2 days, slept most of the time and did not eat ? Mild rhabdo Trend CK, BMP daily, IV fluid maintenance support (4) HLD (hyperlipidemia): Plan: HLD Continue simvastatin 10 mg daily (5) Asymptomatic bacteriuria: Plan: Asymptomatic bacteriuria UA on admission with bacteria, leukocyte esterase, nitrates, ketones but large amounts of epithelial cells Patient reports no dysuria, increased frequency, change in urination, flank pain No leukocytosis Received 1 dose of Rocephin on ER admission Defer additional antibiotics, follow clinically DVT PPx: COVID Dosed Lovenox Dispo: Med/Surg Diet: Regular, NSS+KCL 100cc/hr while PO improving CODE STATUS: Full Code Admission and Anticipated Discharge Date Admission Date: January 28, 2021 Subjective Patient reports breathing better. She has no new complaints. Review of Systems Review of Systems: Constitutional: See HPI Eyes: Denies vision change ENT: Denies ear pain, sore throat, sinus pain Cardiovascular: Denies Chest pain, chest pressure, palpitations, extremity swelling Respiratory: Denies shortness of breath, cough, sputum production, difficulty breathing Gastrointestinal: See HPI Genitourinary: Denies dysuria, urinary frequency Musculoskeletal: See HPI Integumentary:Denies acute rash, lesions, bruising Neurological: Endorses some mild neuropathy without numbness in her left foot arch, otherwise denies headache, numbness, tingling, focal weakness Physical Exam Physical Exam: General: A&Ox3. NAD. Cooperative. HEENT: Atraumatic, normocephalic. Pulm: CTAB A&P. -wheezes, -rales, -rhonchi. Symmetrical chest rise. No increase work of breathing. No respiratory distress. Cardiac: RRR, -mrg. Radial pulses intact and symmetrical. Abdominal: Nontender, nondistended, soft. BS present. Results & Data Results & Data ([facility]) Vital Signs (Past 12 Hours) Vital Signs Temp Pulse Resp BP Pulse Ox Pulse Ox 01/29/21 15:58 38.3 C H 76 19 110/50 L 96 01/29/21 11:52 37.1 C 69 16 92/53 L 92 01/29/21 09:45 93 PG Care Time/CCT Total # of Minutes Spent Total Time Spent with Patient: Total time spent is greater than 50% in coordination of care (as documented) at patient's floor/unit and/or counseling patient: Coding Level of Care Code 36775 Subseq Obs Care Lvl 2 Diagnoses Pneumonia due to 2019 novel coronavirus U07.1; J12.82 Diabetes mellitus E11.9 Elevated CK R74.8 HLD (hyperlipidemia) E78.5 Asymptomatic bacteriuria R82.71
[2021-01-30] MEDS: INSULIN ASPART 100 UNITS/ML 3 ML PEN SC SCH ×4 (08:48→21:44)
[2021-01-30] MEDS: INSULIN GLARGINE SOLOSTAR 100 UNITS/ML 3 ML PEN SC SCH ×2 (08:49→21:45)
--- NOTE | 2021-01-30 08:54 | XRay Report ---
XR chest 1V portable HISTORY: COVID/ HYPOXIA COMPARISON: Chest 01/28/2021. FINDINGS: Faint hazy airspace opacities within the right midlung zone and lung bases consistent with a multifocal viral pneumonia. No pneumothorax. Suspect trace bilateral pleural effusions. The heart r emains mildly enlarged. IMPRESSION: 1. Interval progression of the faint hazy bilateral airspace opacities consistent with a multifocal v iral pneumonia. 2. Trace bilateral pleural effusions. ACT 112: Negative or not required by law. Electronically signed by: Thad Dumont M.D. 01/30/2021 8:53 AM
[2021-01-30] MEDS: dexAMETHasone 4 MG TAB PO SCH (08:56)
[2021-01-30] MEDS: SIMVASTATIN 10 MG TAB PO SCH (08:57)
[2021-01-30 09:04] LABS: Basophils # (auto) 0.01 K/uL (0-0.2); Basophils % (auto) 0.6 %; Hematocrit (blood only) 34.4 % (37-47); Hemoglobin 11.6 g/dL (12.0-16.0); Lymphocytes # (auto) 0.56 K/uL (1.2-3.4); Lymphocytes % (auto) 32.6 %; Mean Corpuscular Hemoglobin 30.6 pg (25-34); Mean Corpuscular Hgb Conc 33.7 g/dL (32-36); Mean Corpuscular Volume 90.8 fL (80-100); Mean Platelet Volume 10.7 fL (7.4-10.4); Monocytes # (auto) 0.15 K/uL (0.11-0.59); Monocytes % (auto) 8.7 %; Neutrophils % (auto) 58.1 %; Platelet Count 111 K/uL (130-400); RDW Standard Deviation 43.2 fL (36.4-46.3); Red Blood Count 3.79 M/uL (4.2-5.4); White Blood Count 1.72 K/uL (4.8-10.8)
[2021-01-30 09:39] LABS: BUN Creatinine Ratio 18.6 (10-20); Calcium 8.3 mg/dl (8.5-10.1); Creatinine Clr Calc Pharmacy 66.3 ml/min; Est GFR (African American) 100.3 ml/min; Est GFR (Non-African American) 86.5 ml/min; Ferritin 161.9 ng/ml (8-388); Platelet Estimate Decreased (Normal); Potassium 3.7 mmol/L (3.5-5.1)
[2021-01-30] MEDS: ENOXAPARIN INJ 40 MG/0.4 ML SYR SQ SCH ×2 (11:49→23:20)
--- NOTE | 2021-01-30 21:05 | Hospitalist Progress Note ---
Date of Service January 30, 2021 Assessment & Plan (1) Pneumonia due to 2019 novel coronavirus: Plan: Jeannie is a 85-year-old female with a past medical history of type 2 diabetes who presents to the hospital with concern for weakness in the setting of Covid. Weakness, fatigue 2/2 Covid pneumonia No hypoxia Afebrile in ER Poor p.o. intake, volume depleted - XR: Cardiomegaly without radiographic evidence of congestive failure. Dependent airspace opacities likely represent scarring/atelectasis. Correlate clinically for evidence of a superimposed infectious/inflammatory pneumonitis. Concern from family for inadequate p.o. intake and inability to provide safe en vironment at home due to patient's weakness Admit to Covid unit for observation No wheezing on exam Incentive spirometry, flutter as tolerated SPO2 goal 90% PT/OT Troponin normal -now on room air. Given intermittent low oxygen, patient meets criteria for decadron. Discarge withheld due to elevated fever. will monitor overnight. Patient was observation but will admit due to her COVID. will contiue to monitor. (2) Diabetes mellitus: Plan: Type 2 diabetes mellitus Hold home antiglycemic's Lantus 6 units, correction factor 65, carb ratio 22 Glucose checks AC/at bedtime BMP daily (3) Elevated CK: Plan: Mildly elevated CK Patient reports was in bed for 2 days, slept most of the time and did not eat ? Mild rhabdo Trend CK, BMP daily, IV fluid maintenance support (4) HLD (hyperlipidemia): Plan: HLD Continue simvastatin 10 mg daily (5) Asymptomatic bacteriuria: Plan: Asymptomatic bacteriuria UA on admission with bacteria, leukocyte esterase, nitrates, ketones but large amounts of epithelial cells Patient reports no dysuria, increased frequency, change in urination, flank pain No leukocytosis Received 1 dose of Rocephin on ER admission Defer additional antibiotics, follow clinically DVT PPx: COVID Dosed Lovenox Dispo: Med/Surg Diet: Regular, NSS+KCL 100cc/hr while PO improving CODE STATUS: Full Code Admission and Anticipated Discharge Date Admission Date: January 28, 2021 Subjective Patient reports feeling about the same from yesterday. Having intermittent non productive cough. Not on supplemental oxygen. Review of Systems Review of Systems: All systems reviewed & are unremarkable except as noted in HPI & below Physical Exam Physical Exam: General: A&Ox3. NAD. Cooperative. HEENT: Atraumatic, normocephalic. Pulm: CTAB A&P. -wheezes, -rales, -rhonchi. Symmetrical chest rise. No increase work of breathing. No respiratory distress. Cardiac: RRR, -mrg. Radial pulses intact and symmetrical. Abdominal: Nontender, nondistended, soft. BS present. Results & Data Results & Data ([facility]) Vital Signs (Past 12 Hours) Vital Signs Temp Pulse Resp BP BP Pulse Ox 01/30/21 20:26 36.8 C 70 22 90/63 L 93 01/30/21 15:40 36.7 C 74 17 106/65 94 01/30/21 11:29 38.7 C H 79 17 108/56 L 92 PG Care Time/CCT Total # of Minutes Spent Total Time Spent with Patient: Total time spent is greater than 50% in coordination of care (as documented) at patient's floor/unit and/or counseling patient: Coding Level of Care Code 08110 Subseq Hosp Care Lvl 2 Diagnoses Pneumonia due to 2019 novel coronavirus U07.1; J12.82 Diabetes mellitus E11.9 Elevated CK R74.8 HLD (hyperlipidemia) E78.5 Asymptomatic bacteriuria R82.71
[2021-01-31] MEDS: CARBOHYDRATES FOR HYPOGLYCEMIA PO PRN (07:58)
[2021-01-31] MEDS: dexAMETHasone 4 MG TAB PO SCH (08:00)
[2021-01-31] MEDS: ACETAMINOPHEN 325 MG TAB PO PRN (08:00)
[2021-01-31] MEDS: SIMVASTATIN 10 MG TAB PO SCH (08:00)
[2021-01-31] MEDS: INSULIN GLARGINE SOLOSTAR 100 UNITS/ML 3 ML PEN SC SCH ×2 (08:58→21:43)
[2021-01-31] MEDS: INSULIN ASPART 100 UNITS/ML 3 ML PEN SC SCH ×4 (08:59→21:43)
--- NOTE | 2021-01-31 10:07 | Electrocardiogram Report ---
Test Reason : Blood Pressure : / mmHG Vent. Rate : 068 BPM Atrial Rate : 068 BPM P-R Int : 186 ms QRS Dur : 122 ms QT Int : 466 ms P-R-T Axes : 030 -30 -03 degrees QTc Int : 495 ms Normal sinus rhythm Possible Left atrial enlargement Left axis deviation Right bundle branch block Abnormal ECG When compared with ECG of 26-JAN-2021 18:21, (unconfirmed) No significant change Confirmed by Christopher Vanegas ([id number]) on 01/31/2021 10:07:31 AM Referred By: Yuri Michael Confirmed By:Christopher Vanegas
[2021-01-31] MEDS: ENOXAPARIN INJ 40 MG/0.4 ML SYR SQ SCH ×2 (12:34→21:58)
--- NOTE | 2021-01-31 20:36 | Hospitalist Progress Note ---
Date of Service January 31, 2021 Assessment & Plan (1) Pneumonia due to 2019 novel coronavirus: Plan: Jeannie is a 85-year-old female with a past medical history of type 2 diabetes who presents to the hospital with concern for weakness in the setting of Covid. Weakness, fatigue 2/2 Covid pneumonia No hypoxia Afebrile in ER Poor p.o. intake, volume depleted - XR: Cardiomegaly without radiographic evidence of congestive failure. Dependent airspace opacities likely represent scarring/atelectasis. Correlate clinically for evidence of a superimposed infectious/inflammatory pneumonitis. Concern from family for inadequate p.o. intake and inability to provide safe en vironment at home due to patient's weakness Admit to Covid unit for observation No wheezing on exam Incentive spirometry, flutter as tolerated SPO2 goal 90% PT/OT Troponin normal -now on room air. Given intermittent low oxygen, patient meets criteria for decadron. Discarge withheld due to elevated fever. -Patient had another episode of fever on 01/31. -plan is to discharge once patient is 24 hours free of fevers. will contiue to monitor. (2) Diabetes mellitus: Plan: Type 2 diabetes mellitus Hold home antiglycemic's Lantus 6 units, correction factor 65, carb ratio 22 Glucose checks AC/at bedtime BMP daily (3) Elevated CK: Plan: Mildly elevated CK Patient reports was in bed for 2 days, slept most of the time and did not eat ? Mild rhabdo Trend CK, BMP daily, IV fluid maintenance support (4) HLD (hyperlipidemia): Plan: HLD Continue simvastatin 10 mg daily (5) Asymptomatic bacteriuria: Plan: Asymptomatic bacteriuria UA on admission with bacteria, leukocyte esterase, nitrates, ketones but large amounts of epithelial cells Patient reports no dysuria, increased frequency, change in urination, flank pain No leukocytosis Received 1 dose of Rocephin on ER admission Defer additional antibiotics, follow clinically DVT PPx: COVID Dosed Lovenox Dispo: Med/Surg Diet: Regular, NSS+KCL 100cc/hr while PO improving CODE STATUS: Full Code Admission and Anticipated Discharge Date Admission Date: January 30, 2021 Subjective Patient reports feeling well. She has no new symptoms. Review of Systems Review of Systems: All systems reviewed & are unremarkable except as noted in HPI & below Physical Exam Physical Exam: General: A&Ox3. NAD. Cooperative. HEENT: Atraumatic, normocephalic. Pulm: CTAB A&P. Symmetrical chest rise. No increase work of breathing. No respiratory distress. Cardiac: RRR, -mrg. Radial pulses intact and symmetrical. Abdominal: Nontender, nondistended, soft. BS present. extremities: no edema Results & Data Results & Data ([facility]) Vital Signs (Past 12 Hours) Vital Signs Temp Pulse Pulse Pulse Resp BP Pulse Ox 01/31/21 19:41 36.7 C 68 18 138/61 92 01/31/21 15:37 36.8 C 69 19 111/60 93 01/31/21 15:21 68 01/31/21 11:26 36.9 C 68 18 106/61 94 PG Care Time/CCT Total # of Minutes Spent Total Time Spent with Patient: Total time spent is greater than 50% in coordination of care (as documented) at patient's floor/unit and/or counseling patient: Coding Level of Care Code 26523 Subseq Hosp Care Lvl 2 Diagnoses Pneumonia due to 2019 novel coronavirus U07.1; J12.82 Diabetes mellitus E11.9 Elevated CK R74.8 HLD (hyperlipidemia) E78.5 Asymptomatic bacteriuria R82.71 Time Spent (min) 25
[2021-01-31 21:52] LABS: Hematocrit (blood only) 37.1 % (37-47); Hemoglobin 12.4 g/dL (12.0-16.0); Immature Granulocytes # (auto) 0.01 K/uL (0.00-0.02); Immature Granulocytes % (auto) 0.5 %; Lymphocytes # (auto) 0.41 K/uL (1.2-3.4); Lymphocytes % (auto) 20.5 %; Mean Corpuscular Hemoglobin 29.9 pg (25-34); Mean Corpuscular Hgb Conc 33.4 g/dL (32-36); Mean Corpuscular Volume 89.4 fL (80-100); Mean Platelet Volume 10.9 fL (7.4-10.4); Monocytes # (auto) 0.13 K/uL (0.11-0.59); Monocytes % (auto) 6.5 %; Neutrophils # (auto) 1.45 K/uL (1.4-6.5); Neutrophils % (auto) 72.5 %; Platelet Count 107 K/uL (130-400); RDW Coefficient of Variation 12.8 % (11.5-14.5); RDW Standard Deviation 41.4 fL (36.4-46.3); Red Blood Count 4.15 M/uL (4.2-5.4)
[2021-01-31 22:04] LABS: BUN Creatinine Ratio 31.3 (10-20); Calcium 9.1 mg/dl (8.5-10.1); Creatinine Clr Calc Pharmacy 57.9 ml/min; Est GFR (African American) 95.7 ml/min; Est GFR (Non-African American) 82.5 ml/min; Potassium 4.1 mmol/L (3.5-5.1)
[2021-02-01] MEDS: ACETAMINOPHEN 325 MG TAB PO PRN (04:00)
[2021-02-01] MEDS: dexAMETHasone 4 MG TAB PO SCH (07:52)
[2021-02-01] MEDS: SIMVASTATIN 10 MG TAB PO SCH (07:52)
[2021-02-01] MEDS: INSULIN GLARGINE SOLOSTAR 100 UNITS/ML 3 ML PEN SC SCH (09:00)
[2021-02-01] MEDS: INSULIN ASPART 100 UNITS/ML 3 ML PEN SC SCH ×3 (09:01→17:47)
[2021-02-01] MEDS: ENOXAPARIN INJ 40 MG/0.4 ML SYR SQ SCH (12:38)
--- NOTE | 2021-02-02 07:36 | Discharge Summary ---
Date of Service February 01, 2021 Admission HPI Per Admitting Provider Jeannie is a 85-year-old female with a past medical history of type 2 diabetes who presents to the hospital with concern for weakness in the setting of Covid. Jeannie valenzuela symptoms began Friday with general malaise, decreased appetite, and some nausea. Was seen at the ER and was diagnosed with COVID yesterday and was discharged home. No fevers/chills, but endorses being generally cold. Endorses shortness of breath when 'uptight or anxious' no shortness of breath at rest. Reports she had diarrhea last night, more formed today. No chest pain, no chest pressure, no palpitations. Reports decreased PO intake, no PO intake x2 days and 'all I did was sleep.' She endorses decreased appetite, denies abdominal pain. Reports that she was too weak and wiped out to get out of bed for 2 days, she lives with her grandson at home and can normally ambulate independently but her family expressed concern that she was unsafe for home and they were not able to care for her especially since her grandson also has Covid at this time. Versus lower extremity muscle aches/cramps. She reports she has been urinating normally, and has not had any dysuria, urinary frequency, urinary retention, or other urinary symptoms. Medical History: Reviewed Surgical History: Reviewed Family History: Reviewed Allergies: No known drug allergies Social History: Denies tobacco, alcohol, recreational drug use. Lives with her grandson, independently ambulatory at baseline CODE STATUS: Full code discussed with patient Principal Diagnosis COVID 19 Pneumonia Discharge Exam General: A&Ox3. NAD. Cooperative. HEENT: Atraumatic, normocephalic. Pulm: CTAB A&P. Symmetrical chest rise. No increase work of breathing. No respiratory distress. Cardiac: RRR, -mrg. Radial pulses intact and symmetrical. Abdominal: Nontender, nondistended, soft. BS present. extremities: no edema Discharge Data Allergies Allergy/AdvReac Type Severity Reaction Status Date / Time No Known Allergies Allergy Unverified 01/28/21 15:12 Consultations 01/28/21 18:01 ED Decision to Admit Stat Hospital Course (1) Pneumonia due to 2019 novel coronavirus: Jeannie is a 85-year-old female with a past medical history of type 2 diabetes who presents to the hospital with concern for weakness in the setting of Covid. Weakness, fatigue 2/2 Covid pneumonia No hypoxia Afebrile in ER Poor p.o. intake, volume depleted - XR: Cardiomegaly without radiographic evidence of congestive failure. Dependent airspace opacities likely represent scarring/atelectasis. Correlate clinically for evidence of a superimposed infectious/inflammatory pneumonitis. Concern from family for inadequate p.o. intake and inability to provide safe environment at home due to patient's weakness Admit to Covid unit for observation No wheezing on exam Incentive spirometry, flutter as tolerated SPO2 goal 90% PT/OT Troponin normal -now on room air. Given intermittent low oxygen, patient meets criteria for decadron. Discarge withheld due to elevated fever. -Patient had another episode of fever on 01/31. -plan is to discharge once patient is 24 hours free of fevers. -This occured on 02/01, patient agreeable to discharge. (2) Diabetes mellitus: Type 2 diabetes mellitus Hold home antiglycemic's Lantus 6 units, correction factor 65, carb ratio 22 Glucose checks AC/at bedtime will resume home meds at discharge (3) Elevated CK: Mildly elevated CK Patient reports was in bed for 2 days, slept most of the time and did not eat ? Mild rhabdo improved with IVF. (4) HLD (hyperlipidemia): HLD Continue simvastatin 10 mg daily (5) Asymptomatic bacteriuria: Asymptomatic bacteriuria UA on admission with bacteria, leukocyte esterase, nitrates, ketones but large amounts of epithelial cells Patient reports no dysuria, increased frequency, change in urination, flank pain No leukocytosis Received 1 dose of Rocephin on ER admission Defer additional antibiotics, follow clinically DVT PPx: COVID Dosed Lovenox Dispo: Med/Surg Diet: Regular, NSS+KCL 100cc/hr while PO improving CODE STATUS: Full Code Total Time Total Time Spent Total Time Spent (In Minutes): 32 Discharge Plan Discharge Items Patient Disposition: Home - Home Health Services Reason For Visit: COVID, WEAKNESS Discharge Diagnosis: COVID Activity: Resume your previous activity Non-emergency contact: Primary Care Provider Call non-emergency contact if: you have any medication questions Follow-up/Referrals: Yuri Michael MD [Primary Care Provider] - 02/09/21 11:00 am Diet: Carb Consistent or DM2 Addtl Attending Provider Instructions: You have been hospitalized for COVID infection. During your stay at [facility], we have made an effort to correct the problem that brought you to the hospital while keeping you as comfortable as possible. Medications were used to bring your condition under control and your discharge instructions will include directions for any medications you should take after leaving the hospital. Please make sure you see your Primary Care Provider as part of your follow up plan. will recommend to continue with dexamethaxon for 7 more days. Pending Studies at Discharge: No Stand-Alone Forms: [facility], Smoking Cessation Medications and DC Order Prescriptions: New dexamethasone 4 mg Tablet 6 mg PO DAILY Qty: 7 RF: 0 Continued metformin 500 mg tablet 500 mg PO QAM RF: 0 glipizide 10 mg tablet 20 mg PO BID RF: 0 simvastatin 10 mg tablet 10 mg PO DAILY RF: 0 metformin 850 mg tablet 850 mg PO QPM RF: 0 Systane Balance 0.6 % Drops 1 drp OPHTHALMIC (EYE) QID PRN (Reason: Dry Eye(S)) RF: 0 sodium chloride [Saline Mist] 0.65 % Aerosol,[place] 1 spray INTRANASAL BID PRN (Reason: nasal dryness) RF: 0 Discharge Orders: Discharge Order (Routine); Ordered 02/01/21 Ordered By: Cristhian Zepeda Admission Data Admit Date/Time: 01/30/21 08:04 Attending Provider: Cristhian Zepeda Admit Provider: Prabhu Falcon Primary Care Provider: Yuri Michael Other Providers: Prabhu Falcon ; [facility] Other Interventions: Discharge Summary Assessment (RN) Last Done: 02/01/21 16:51 Coding Level of Care Code D/C DAY MANAGEMENT >30 MINS Diagnoses Pneumonia due to 2019 novel coronavirus U07.1; J12.82 Diabetes mellitus E11.9 Elevated CK R74.8 HLD (hyperlipidemia) E78.5 Asymptomatic bacteriuria R82.71 Time Spent (min) 32
[2021-02-02] MEDS ORDERED: INSULIN GLARGINE SOLOSTAR 100 UNITS/ML 3 ML PEN SC SCH (09:00)
== END 2021-02-01 17:47 | disposition home health service (06) ==
LOC: ED 12:44 → 2E 12:44 → SUATTDRO 20:37 → 2E 22:17

== ENCOUNTER 2021-02-10 13:47 | Inpatient (IN) ==
--- NOTE | 2021-02-10 15:07 | Emergency Department Note ---
History of Present Illness General Chief complaint: Illness Stated complaint: WEAKNESS, LETHARGIC Time Seen by Provider: 02/10/21 14:51 Source: patient, RN notes reviewed and old records reviewed Mode of arrival: ambulatory Limitations: no limitations History of Present Illness This patient is a 85-year-old female who comes in with shortness of breath. She feels generally weak and tired she had no cough. She was diagnosed with Covid about 18 days ago and was recently in the hospital for Covid pneumonia last week. Denies fever today. She lives with her grandson is also sick with Covid. She did not get the vaccine. Denies lower extremity pain or swelling. No fall or trauma. Occasionally she will have some chest pain. Nothing seems make her symptoms better or worse. No vomiting. Home Medications Medication Instructions Recorded Confirmed Type glipizide 10 mg tablet 20 mg PO BID 01/26/21 02/10/21 History metformin 500 mg tablet 500 mg PO QAM 01/26/21 02/10/21 History metformin 850 mg tablet 850 mg PO QPM 01/26/21 02/10/21 History propylene glycol 0.6 % eye drops 1 drp OPHTHALMIC (EYE) QID PRN 01/26/21 02/10/21 History (Systane Balance) simvastatin 10 mg tablet 10 mg PO DAILY 01/26/21 02/10/21 History sodium chloride 0.65 % nasal spray 1 spray INTRANASAL BID PRN 01/26/21 02/10/21 History aerosol (Saline Mist) omeprazole 20 mg capsule,delayed 20 mg PO DAILY 02/10/21 02/10/21 History release Allergies Allergy/AdvReac Type Severity Reaction Status Date / Time No Known Allergies Allergy Verified 02/10/21 16:08 Past Med/Surg History Medical History 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) COVID-19 Diabetes mellitus (02/16/11) Kidney stone (02/16/11) Family History Other Family history non-contributory Social History Smoking Status: Unknown if ever smoked Hx Alcohol Use: No Hx Substance Use: No Preferred Language: Slovak Communication Ability: Effective Beliefs That Will Affect Care: None Current Living Situation: Family Feels Safe at Home: Yes Assistive Devices: Walker Review of Systems A total of 10 systems reviewed and were otherwise negative Physical Exam Vital Signs Vital Signs - 24 hr 02/10/21 14:07 02/10/21 15:23 02/10/21 15:50 Temperature 37.1 C Temperature Source Oral Pulse Rate 93 H 91 H Pulse Rate [Apical] 93 H 93 H 91 H Pulse Rhythm Regular Respiratory Rate 26 H 20 20 Respiratory Effort / Characteristics Non-Labored Blood Pressure 123/63 Blood Pressure [Right Arm] 123/63 123/63 143/79 H Blood Pressure Mean 83 Blood Pressure Mean [Right Arm] 83 83 100 Blood Pressure Position [Right Arm] Lying Pulse Oximetry 93 93 91 Oxygen Delivery Method Room Air Room Air Nasal Cannula Oxygen Flow Rate 1 1 Sepsis Recent Fever Within 48 Hours No Sepsis New/Unexplained Change in Mental Status N/A Sepsis Action Taken by Nursing No Action Required 02/10/21 16:35 Temperature Temperature Source Pulse Rate Pulse Rate [Apical] 90 Pulse Rhythm Respiratory Rate 20 Respiratory Effort / Characteristics Blood Pressure Blood Pressure [Right Arm] 117/57 L Blood Pressure Mean Blood Pressure Mean [Right Arm] 77 Blood Pressure Position [Right Arm] Pulse Oximetry 90 Oxygen Delivery Method Nasal Cannula Oxygen Flow Rate 1 Sepsis Recent Fever Within 48 Hours Sepsis New/Unexplained Change in Mental Status Sepsis Action Taken by Nursing General: Well developed well nourished older female who is on supplemental oxygen at present but in no acute distress, breathing comfortably on room air. Normal speech HEENT: Normal cephalic atraumatic. Pupils are equal round and reactive to light. Extraocular movements are intact. Oropharynx is pink with moist mucous membranes. No swelling of the mouth lips or tongue. Neck: Supple with a midline trachea. No meningeal signs or stiffness, no JVD or bruits. No Stridor. Chest: Crackles to auscultation bilaterally. No wheezes or rhonchi. No increased work of breathing. Heart: Regular rate and rhythm without murmurs or gallops. Abdomen: Soft nontender, nondistended without rebound guarding or rigidity. Extremities: No cyanosis clubbing or edema. No calf tenderness or assymetry Spine/Back. Non tender to palpation. No CVA tenderness Skin: Good turgor without rashes. Neurologic exam: Cranial nerves two through 12 are intact. Motor and sensation are intact and symmetrical throughout. Course Administered Medications Discontinued Medications Famotidine (Famotidine 20mg/5ml Iv Push) 20 mg IV ONE STA Stop: 02/10/21 17:59 Last Admin: 02/10/21 18:53 Dose: 20 mg Documented by: [id number] Ceftriaxone Sodium (Rocephin) 1,000 mg in 50 mls @ 100 mls/hr IV NOW STA Stop: 02/10/21 18:38 Last Infusion: 02/10/21 19:32 Dose: 0 mls/hr Documented by: [id number] Admin: 02/10/21 18:53 Dose: 100 mls/hr Documented by: [id number] Azithromycin 500 mg/ Dextrose 255 mls @ 127.5 mls/hr IV NOW STA Stop: 02/10/21 20:08 Last Admin: 02/10/21 18:53 Dose: 127.5 mls/hr Documented by: [id number] Dexamethasone 6 mg/ Syringe 1.5 mls @ 1 mls/min IV ONE STA Stop: 02/10/21 18:11 Last Admin: 02/10/21 18:53 Dose: 1 mls/min Documented by: [id number] Ioversol (Optiray 320 125ml) 120 ml IV ONCE ONE Stop: 02/10/21 16:51 Last Admin: 02/10/21 16:50 Dose: 120 ml Documented by: [id number] Potassium Chloride (Potassium Chloride Crtab 20 Meq Tabcr) 20 meq PO NOW STA Stop: 02/10/21 17:38 Last Admin: 02/10/21 18:05 Dose: 20 meq Documented by: [id number] Critical Care Time Critical Care Time: Yes Total Critical Care Time: 30 Due to the patient's shortness of breath, pulmonary embolism, hypoxemia, recent Covid diagnosis, need for sepsis type work-up as well as a CAT scan to evaluate her for PE and further evaluation and consultation, I have personally spent greater than 30 minutes of critical care time in the direct management of this patient. This includes bedside care, interpretation of diagnostic studies, and testing, discussion with consultants, patient, and family members, and other required patient management activities. This 30 minutes is in excess of all separately billable procedures. Medical Decision Making Differential Diagnosis Covid, pneumonia, PE, CHF, cardiac disease, sepsis, electrolyte or metabolic abnormality Medical Records Attestation: I reviewed the patient's medical records. Home Medications Current Medication List: was personally reviewed by me Laboratory Data Attestation: I reviewed the patient's lab results. Result diagrams: 02/10/21 15:48 02/10/21 15:48 Lab Results 02/10/21 02/10/21 02/10/21 Range/Units 15:36 15:48 15:48 WBC 6.28 (4.8-10.8) K/uL RBC 3.95 L (4.2-5.4) M/uL Hgb 12.0 (12.0-16.0) g/dL Hct 35.4 L (37-47) % MCV 89.6 (80-100) fL MCH 30.4 (25-34) pg MCHC 33.9 (32-36) g/dL RDW Std Deviation 41.6 (36.4-46.3) fL RDW Coeff of Tabatha 12.7 (11.5-14.5) % Plt Count 245 (130-400) K/uL MPV 10.0 (7.4-10.4) fL Immature Gran % (Auto) 0.5 % Neut % (Auto) 78.0 % Lymph % (Auto) 14.5 % Yell % (Auto) 5.3 % Eos % (Auto) 1.4 % Baso % (Auto) 0.3 % Neut # (Auto) 4.90 (1.4-6.5) K/uL Lymph # (Auto) 0.91 L (1.2-3.4) K/uL Yell # (Auto) 0.33 (0.11-0.59) K/uL Eos # (Auto) 0.09 (0-0.5) K/uL Baso # (Auto) 0.02 (0-0.2) K/uL Immature Gran # (Auto) 0.03 H (0.00-0.02) K/uL PT 10.4 (9.0-12.0) Seconds INR 1.0 (0.9-1.1) APTT 26.5 (21.0-31.0) Seconds PTT Ratio 1.0 D-Dimer 9050 H* (0-500) ug/L FEU Sodium (136-145) mmol/L Potassium (3.5-5.1) mmol/L Chloride (98-107) mmol/L Carbon Dioxide (21-32) mmol/L Anion Gap (3-11) BUN (7-18) mg/dl Creatinine (0.6-1.2) mg/dl Est Cr Clr Drug Dosing ml/min Est GFR ( Amer) ml/min Est GFR (Non-Af Amer) ml/min BUN/Creatinine Ratio (10-20) Glucose (70-99) mg/dl Lactate (0.4-2.0) mmol/L Calcium (8.5-10.1) mg/dl Magnesium (1.8-2.4) mg/dl Total Bilirubin (0.2-1) mg/dl AST (15-37) U/L ALT (12-78) U/L Alkaline Phosphatase (45-117) U/L Lactate Dehydrogenase (84-246) U/L Troponin I (0-0.045) ng/ml C-Reactive Protein NT-Pro-B Natriuret Pep (0-1800) pg/ml Total Protein (6.4-8.2) gm/dl Albumin (3.4-5.0) gm/dl Globulin (2.5-4.0) gm/dl Albumin/Globulin Ratio (0.9-2) Procalcitonin (0-0.5) ng/ml Urine Color Yellow Urine Appearance Clear (Clear) Urine pH 5.5 (4.5-7.5) Ur Specific [place] 1.014 (1.000-1.030) Urine Protein Negative (Negative) Urine Glucose (UA) Negative (Negative) Urine Ketones 1+ H (Negative) Urine Blood Negative (Negative) Urine Nitrite Positive A (Negative) Urine Bilirubin Negative (Negative) Urine Urobilinogen Negative (Negative) Ur Leukocyte Esterase 1+ H (Negative) Urine WBC (Auto) 10-30 H (0-5) /hpf Urine RBC (Auto) 0-4 (0-4) /hpf U Hyaline Cast (Auto) 10-30 H (0-5) /lpf U Epithel Cells (Auto) >30 H (0-5) /lpf Urine Bacteria (Auto) 4+ H (Negative) COVID-19 Eval Order SARS-CoV-2 (PCR) (Negative) 02/10/21 02/10/21 02/10/21 Range/Units 15:48 15:48 15:48 WBC (4.8-10.8) K/uL RBC (4.2-5.4) M/uL Hgb (12.0-16.0) g/dL Hct (37-47) % MCV (80-100) fL MCH (25-34) pg MCHC (32-36) g/dL RDW Std Deviation (36.4-46.3) fL RDW Coeff of Tabatha (11.5-14.5) % Plt Count (130-400) K/uL MPV (7.4-10.4) fL Immature Gran % (Auto) % Neut % (Auto) % Lymph % (Auto) % Yell % (Auto) % Eos % (Auto) % Baso % (Auto) % Neut # (Auto) (1.4-6.5) K/uL Lymph # (Auto) (1.2-3.4) K/uL Yell # (Auto) (0.11-0.59) K/uL Eos # (Auto) (0-0.5) K/uL Baso # (Auto) (0-0.2) K/uL Immature Gran # (Auto) (0.00-0.02) K/uL PT (9.0-12.0) Seconds INR (0.9-1.1) APTT (21.0-31.0) Seconds PTT Ratio D-Dimer (0-500) ug/L FEU Sodium 136 (136-145) mmol/L Potassium 3.2 L (3.5-5.1) mmol/L Chloride 103 (98-107) mmol/L Carbon Dioxide 22 (21-32) mmol/L Anion Gap 11.0 (3-11) BUN 18 (7-18) mg/dl Creatinine 0.78 (0.6-1.2) mg/dl Est Cr Clr Drug Dosing 42.1 ml/min Est GFR ( Amer) 79.8 ml/min Est GFR (Non-Af Amer) 68.8 ml/min BUN/Creatinine Ratio 22.7 H (10-20) Glucose 135 H (70-99) mg/dl Lactate 1.4 (0.4-2.0) mmol/L Calcium 8.7 (8.5-10.1) mg/dl Magnesium 1.9 (1.8-2.4) mg/dl Total Bilirubin 0.9 (0.2-1) mg/dl AST 36 (15-37) U/L ALT 34 (12-78) U/L Alkaline Phosphatase 73 (45-117) U/L Lactate Dehydrogenase (84-246) U/L Troponin I < 0.015 (0-0.045) ng/ml C-Reactive Protein NT-Pro-B Natriuret Pep 1272 (0-1800) pg/ml Total Protein 6.2 L (6.4-8.2) gm/dl Albumin 2.4 L (3.4-5.0) gm/dl Globulin 3.8 (2.5-4.0) gm/dl Albumin/Globulin Ratio 0.6 L (0.9-2) Procalcitonin < 0.05 (0-0.5) ng/ml Urine Color Urine Appearance (Clear) Urine pH (4.5-7.5) Ur Specific [place] (1.000-1.030) Urine Protein (Negative) Urine Glucose (UA) (Negative) Urine Ketones (Negative) Urine Blood (Negative) Urine Nitrite (Negative) Urine Bilirubin (Negative) Urine Urobilinogen (Negative) Ur Leukocyte Esterase (Negative) Urine WBC (Auto) (0-5) /hpf Urine RBC (Auto) (0-4) /hpf U Hyaline Cast (Auto) (0-5) /lpf U Epithel Cells (Auto) (0-5) /lpf Urine Bacteria (Auto) (Negative) COVID-19 Eval Order SARS-CoV-2 (PCR) (Negative) 02/10/21 02/10/21 02/10/21 Range/Units 15:48 15:48 15:48 WBC (4.8-10.8) K/uL RBC (4.2-5.4) M/uL Hgb (12.0-16.0) g/dL Hct (37-47) % MCV (80-100) fL MCH (25-34) pg MCHC (32-36) g/dL RDW Std Deviation (36.4-46.3) fL RDW Coeff of Tabatha (11.5-14.5) % Plt Count (130-400) K/uL MPV (7.4-10.4) fL Immature Gran % (Auto) % Neut % (Auto) % Lymph % (Auto) % Yell % (Auto) % Eos % (Auto) % Baso % (Auto) % Neut # (Auto) (1.4-6.5) K/uL Lymph # (Auto) (1.2-3.4) K/uL Yell # (Auto) (0.11-0.59) K/uL Eos # (Auto) (0-0.5) K/uL Baso # (Auto) (0-0.2) K/uL Immature Gran # (Auto) (0.00-0.02) K/uL PT (9.0-12.0) Seconds INR (0.9-1.1) APTT (21.0-31.0) Seconds PTT Ratio D-Dimer (0-500) ug/L FEU Sodium (136-145) mmol/L Potassium (3.5-5.1) mmol/L Chloride (98-107) mmol/L Carbon Dioxide (21-32) mmol/L Anion Gap (3-11) BUN (7-18) mg/dl Creatinine (0.6-1.2) mg/dl Est Cr Clr Drug Dosing ml/min Est GFR ( Amer) ml/min Est GFR (Non-Af Amer) ml/min BUN/Creatinine Ratio (10-20) Glucose (70-99) mg/dl Lactate (0.4-2.0) mmol/L Calcium (8.5-10.1) mg/dl Magnesium (1.8-2.4) mg/dl Total Bilirubin (0.2-1) mg/dl AST (15-37) U/L ALT (12-78) U/L Alkaline Phosphatase (45-117) U/L Lactate Dehydrogenase 398 H (84-246) U/L Troponin I (0-0.045) ng/ml C-Reactive Protein Cancelled 8.46 H NT-Pro-B Natriuret Pep (0-1800) pg/ml Total Protein (6.4-8.2) gm/dl Albumin (3.4-5.0) gm/dl Globulin (2.5-4.0) gm/dl Albumin/Globulin Ratio (0.9-2) Procalcitonin (0-0.5) ng/ml Urine Color Urine Appearance (Clear) Urine pH (4.5-7.5) Ur Specific [place] (1.000-1.030) Urine Protein (Negative) Urine Glucose (UA) (Negative) Urine Ketones (Negative) Urine Blood (Negative) Urine Nitrite (Negative) Urine Bilirubin (Negative) Urine Urobilinogen (Negative) Ur Leukocyte Esterase (Negative) Urine WBC (Auto) (0-5) /hpf Urine RBC (Auto) (0-4) /hpf U Hyaline Cast (Auto) (0-5) /lpf U Epithel Cells (Auto) (0-5) /lpf Urine Bacteria (Auto) (Negative) COVID-19 Eval Order SARS-CoV-2 (PCR) (Negative) 02/10/21 02/10/21 Range/Units 15:59 15:59 WBC (4.8-10.8) K/uL RBC (4.2-5.4) M/uL Hgb (12.0-16.0) g/dL Hct (37-47) % MCV (80-100) fL MCH (25-34) pg MCHC (32-36) g/dL RDW Std Deviation (36.4-46.3) fL RDW Coeff of Tabatha (11.5-14.5) % Plt Count (130-400) K/uL MPV (7.4-10.4) fL Immature Gran % (Auto) % Neut % (Auto) % Lymph % (Auto) % Yell % (Auto) % Eos % (Auto) % Baso % (Auto) % Neut # (Auto) (1.4-6.5) K/uL Lymph # (Auto) (1.2-3.4) K/uL Yell # (Auto) (0.11-0.59) K/uL Eos # (Auto) (0-0.5) K/uL Baso # (Auto) (0-0.2) K/uL Immature Gran # (Auto) (0.00-0.02) K/uL PT (9.0-12.0) Seconds INR (0.9-1.1) APTT (21.0-31.0) Seconds PTT Ratio D-Dimer (0-500) ug/L FEU Sodium (136-145) mmol/L Potassium (3.5-5.1) mmol/L Chloride (98-107) mmol/L Carbon Dioxide (21-32) mmol/L Anion Gap (3-11) BUN (7-18) mg/dl Creatinine (0.6-1.2) mg/dl Est Cr Clr Drug Dosing ml/min Est GFR ( Amer) ml/min Est GFR (Non-Af Amer) ml/min BUN/Creatinine Ratio (10-20) Glucose (70-99) mg/dl Lactate (0.4-2.0) mmol/L Calcium (8.5-10.1) mg/dl Magnesium (1.8-2.4) mg/dl Total Bilirubin (0.2-1) mg/dl AST (15-37) U/L ALT (12-78) U/L Alkaline Phosphatase (45-117) U/L Lactate Dehydrogenase (84-246) U/L Troponin I (0-0.045) ng/ml C-Reactive Protein NT-Pro-B Natriuret Pep (0-1800) pg/ml Total Protein (6.4-8.2) gm/dl Albumin (3.4-5.0) gm/dl Globulin (2.5-4.0) gm/dl Albumin/Globulin Ratio (0.9-2) Procalcitonin (0-0.5) ng/ml Urine Color Urine Appearance (Clear) Urine pH (4.5-7.5) Ur Specific [place] (1.000-1.030) Urine Protein (Negative) Urine Glucose (UA) (Negative) Urine Ketones (Negative) Urine Blood (Negative) Urine Nitrite (Negative) Urine Bilirubin (Negative) Urine Urobilinogen (Negative) Ur Leukocyte Esterase (Negative) Urine WBC (Auto) (0-5) /hpf Urine RBC (Auto) (0-4) /hpf U Hyaline Cast (Auto) (0-5) /lpf U Epithel Cells (Auto) (0-5) /lpf Urine Bacteria (Auto) (Negative) COVID-19 Eval Order Covid19 at [facility] SARS-CoV-2 (PCR) POSITIVE A* (Negative) Imaging Data Attestation: I personally reviewed and interpreted this imaging study as follows: My Impression: Chest x-raybilateral infiltrates in the lung farooq. No pneumothorax. Radiologist's Impression: Chest X-Ray 02/10/21 15:02 XR chest 1V portable CLINICAL HISTORY: SEPSIS COMPARISON STUDY: January 30, 2021 FINDINGS: No pneumothorax. No pleural effusion. Interval prominence of patchy airspace opacities throughout peripheral aspect of bilateral lungs, most prominent within bilateral lung bases likely represent multifocal pneumonia. Cardiomediastinal silhouette is within normal limits in size. No significant pulmonary vascular congestion.. Osseous structures: Osteopenia. Probably degenerative changes of the spine. Aorta is calcified. IMPRESSION: 1. Interval development of multifocal pneumonia as detailed above. ACT 112: Negative or not required by law. The above report was generated using voice recognition software. It may contain grammatical, syntax or spelling errors. Electronically signed by: Dominga Romero DO 02/10/2021 3:27 PM Chest CTA 02/10/21 16:33 CT ANGIOGRAM OF THE CHEST CLINICAL HISTORY: PE COMPARISON STUDY: January 22, 2011 TECHNIQUE: Following the IV administration of 120 mL of Optiray, CT angiogram of the thorax was performed from the thoracic inlet to the lung bases utilizing the pulmonary embolus protocol. Images are reviewed in the axial, sagittal, and coronal planes. IV contrast was administered without complication. MIP imaging was performed. A dose lowering technique was utilized adhering to the principles of ALARA. CT DOSE: 347.06 mGycm FINDINGS: There is adequate opacification within main pulmonary artery. Acute acute occlusive pulmonary embolus is seen within left lower lobe and lingular branch is of the pulmonary artery. Pulmonary artery is within upper limits of normal for size. No right heart strain is seen. Right and left atria are slightly enlarged. No pericardial effusion seen. Heavy coronary calcifications and calcifications of the mitral annulus. Aortic wall is calcified. There is no axillary, supra clavicle or internal mammary lymphadenopathy seen. Mediastinal lymph nodes are not enlarged. Prominent right hilar lymph node measuring 1.4 cm in size. Visualized portion of thyroid gland shows no evidence of focal lesions. Esophagus is normal. Thoracic aorta is normal in caliber, tortuous with extensive calcifications of its wall. Tracheobronchial tree is patent. Mixed reticular and airspace opacities are seen throughout bilateral lungs, predominantly peripheral distribution, lower lobe affected more than upper lobe. Evaluation of pulmonary parenchyma is limited due to motion artifact. Limited evaluation of upper abdominal viscera shows no evidence of acute abnormalities. Osseous structures: Severe diffuse osteopenia and multilevel degenerative changes of the spine. IMPRESSION: 1. Findings are positive for acute pulmonary embolus involving left lower lobe and lingular branches of the pulmonary artery. No right heart strain is seen. Main pulmonary artery is within upper limits of normal. Report will be sent to emergency Department. 2. Multifocal pneumonia/Covid. 3. Atherosclerosis. 4. The rest of findings as above. ACT 112: Negative or not required by law. The above report was generated using voice recognition software. It may contain grammatical, syntax or spelling errors. Electronically signed by: Dominga Romero DO 02/10/2021 5:55 PM ECG Data Attestation: I personally reviewed and interpreted this ECG as follows: Indication: + SOB/dyspnea Rate (beats per minute): 94 Rhythm: + normal sinus ECG Intervals/blocks: + Right Bundle branch block ECG [place]: + Normal ECG ST segments: + Normal ST segments ECG Findings: no PACs or no PVCs Comparison ECG Date: from (01/28/21) Change: no significant change MDM Narrative This patient comes in as described above. She was placed on a pleat patternmaker and C6. She had a Covid diagnosis about 18 days ago and has not felt well she was in the hospital last week. She is been short of breath. She was hypoxemic with an O2 sat in the high 80s she was placed on 2 L and this brought her up to 93%. Multiple blood testing was obtained. She was reassessed frequently. She seems stable hemodynamically however she is hypoxemic. Chest x-ray shows infiltrates bilaterally which I think is likely still the Covid her Covid test does remain positive. She has no significant electrolyte or metabolic abnormalities. Her D-dimer was significantly elevated so I did order a CTA of her chest and I did consult Dr. James for admission. Dr. James did see the patient in ER. In the meantime her CTA did come back positive for PE and he is ordered anticoagulation. She will be admitted for further treatment and evaluation. Continuous cardiac monitoring: Orders placed in EMR for continuous cardiac monitoring. Upon my interpretation she was noted to be in normal sinus rhythm with a rate of 90 Impression & Plan Acute pulmonary embolism, SOB (shortness of breath), Weakness, Lab test positive for detection of COVID-19 virus, Hypoxemia Discharge Plan Visit Data Chief Complaint: Illness Stated Complaint: WEAKNESS, LETHARGIC ED Provider: [facility] Discharge Problem: Acute pulmonary embolism, SOB (shortness of breath), Weakness, Lab test positive for detection of COVID-19 virus, Hypoxemia Forms Stand Alone Forms: My [facility] Prescriptions Prescriptions: No Action metformin 500 mg tablet 500 mg PO QAM RF: 0 glipizide 10 mg tablet 20 mg PO BID RF: 0 simvastatin 10 mg tablet 10 mg PO DAILY RF: 0 metformin 850 mg tablet 850 mg PO QPM RF: 0 Systane Balance 0.6 % Drops 1 drp OPHTHALMIC (EYE) QID PRN (Reason: Dry Eye(S)) RF: 0 sodium chloride [Saline Mist] 0.65 % Aerosol,[place] 1 spray INTRANASAL BID PRN (Reason: nasal dryness) RF: 0 omeprazole 20 mg capsule,delayed release(DR/EC) 20 mg PO DAILY RF: 0 Referrals Referrals: Yuri Michael MD [Primary Care Provider] -
--- NOTE | 2021-02-10 15:29 | XRay Report ---
XR chest 1V portable CLINICAL HISTORY: SEPSIS COMPARISON STUDY: January 30, 2021 FINDINGS: No pneumothorax. No pleural effusion. Interval prominence of patchy airspace opacities throughout peripheral aspect of bilateral lungs, mos t prominent within bilateral lung bases likely represent multifocal pneumonia. Cardiomediastinal silhouette is within normal limits in size. No significant pulmonary vascular congestion.. Osseous structures: Osteopenia. Probably degenerative changes of the spine. Aorta is calcified. IMPRESSION: 1. Interval development of multifocal pneumonia as detailed above. ACT 112: Negative or not required by law. The above report was generated using voice recognition software. It may contain grammatical, syntax o r spelling errors. Electronically signed by: Dominga Romero DO 02/10/2021 3:27 PM
--- NOTE | 2021-02-10 15:55 | Electrocardiogram Report ---
Test Reason : Blood Pressure : / mmHG Vent. Rate : 094 BPM Atrial Rate : 094 BPM P-R Int : 178 ms QRS Dur : 142 ms QT Int : 402 ms P-R-T Axes : 039 -28 -10 degrees QTc Int : 502 ms Normal sinus rhythm Possible Left atrial enlargement Right bundle branch block Abnormal ECG When compared with ECG of 28-JAN-2021 13:45, T wave inversion now evident in Anterior leads Confirmed by Jurgen Coughlin ([id number]) on 02/10/2021 3:55:23 PM Referred By: Confirmed By:Abhijeet Coughlin
[2021-02-10 16:10] LABS: Basophils # (auto) 0.02 K/uL (0-0.2); Basophils % (auto) 0.3 %; Eosinophils # (auto) 0.09 K/uL (0-0.5); Eosinophils % (auto) 1.4 %; Hematocrit (blood only) 35.4 % (37-47); Immature Granulocytes # (auto) 0.03 K/uL (0.00-0.02); Immature Granulocytes % (auto) 0.5 %; Lymphocytes # (auto) 0.91 K/uL (1.2-3.4); Lymphocytes % (auto) 14.5 %; Mean Corpuscular Hemoglobin 30.4 pg (25-34); Mean Corpuscular Hgb Conc 33.9 g/dL (32-36); Mean Corpuscular Volume 89.6 fL (80-100); Monocytes # (auto) 0.33 K/uL (0.11-0.59); Monocytes % (auto) 5.3 %; Platelet Count 245 K/uL (130-400); RDW Coefficient of Variation 12.7 % (11.5-14.5); RDW Standard Deviation 41.6 fL (36.4-46.3); Red Blood Count 3.95 M/uL (4.2-5.4); White Blood Count 6.28 K/uL (4.8-10.8)
[2021-02-10 16:13] LABS: Appearance Urine Clear (Clear); Bacteria Urine Automated 4+ (Negative); Bilirubin Urine Negative (Negative); Blood Urine Negative (Negative); Color Urine Yellow; Epithelial Cell Urine Auto >30 /lpf (0-5); Glucose Urine UA Negative (Negative); Ketones Urine 1+ (Negative); Leukocyte Esterase Urine 1+ (Negative); Nitrite Urine Positive (Negative); Protein Urine Negative (Negative); RBC Urine Automated 0-4 /hpf (0-4); Specific Gravity Urine 1.014 (1.000-1.030); Urobilinogen Urine Negative (Negative); pH Urine 5.5 (4.5-7.5)
[2021-02-10 16:28] LABS: Alanine Aminotransferase 34 U/L (12-78); Albumin Level 2.4 gm/dl (3.4-5.0); Aspartate Aminotransferase 36 U/L (15-37); BUN Creatinine Ratio 22.7 (10-20); Blood Urea Nitrogen 18 mg/dl (7-18); Calcium 8.7 mg/dl (8.5-10.1); Carbon Dioxide 22 mmol/L (21-32); Chloride 103 mmol/L (98-107); Creatinine Clr Calc Pharmacy 42.1 ml/min; Est GFR (African American) 79.8 ml/min; Est GFR (Non-African American) 68.8 ml/min; Glucose 135 mg/dl (70-99); Magnesium 1.9 mg/dl (1.8-2.4); Potassium 3.2 mmol/L (3.5-5.1); Sodium 136 mmol/L (136-145)
[2021-02-10 16:31] LABS: Partial Thromboplastin Time 26.5 Seconds (21.0-31.0); Prothrombin Time 10.4 Seconds (9.0-12.0)
[2021-02-10 16:32] LABS: D Dimer 9050 ug/L FEU (0-500)
[2021-02-10 16:33] LABS: Albumin Globulin Ratio 0.6 (0.9-2); Alkaline Phosphatase 73 U/L (45-117); Bilirubin,Total 0.9 mg/dl (0.2-1); Globulin 3.8 gm/dl (2.5-4.0); NT Pro B Type Natriuretic Pept 1272 pg/ml (0-1800); Total Protein 6.2 gm/dl (6.4-8.2); Troponin I < 0.015 ng/ml (0-0.045)
[2021-02-10] MEDS ORDERED: OPTIRAY 320 125ml IV ONE (16:50)
[2021-02-10] MEDS ORDERED: POTASSIUM CHLORIDE CRTAB 20 MEQ TABCR PO STA (17:37)
--- NOTE | 2021-02-10 17:40 | History & Physical Report ---
Date of Service February 10, 2021 Assessment & Plan (1) Acute respiratory failure with hypoxia: Plan: Secondary to COVID-19, PE, possible atypical PNA (2) Pneumonia due to 2019 novel coronavirus: Plan: Discussed with Carlyn Haley from infection control and recommended continuing isolation until 18 days (after first positive test) as still symptomatic Start dexamethasone 6mg IV daily given hypoxia and elevated CRP Azithromycin to cover for atypical pneumonia Procalcitonin negative (3) Acute pulmonary embolism: Plan: Secondary to COVID-19 Anticoagulation with Lovenox 1mg/kg BID (4) UTI (urinary tract infection): Plan: Difficult to rule out this is not contributory towards her weakness, loss of appetite and confusion. Recommend treating for 5 days with ceftriaxone. Follow up urine and blood cultures. (5) Diabetes mellitus: Plan: HbA1C 7.5 in Jul, repeat with AM labs Hold outpatient glipizide and metformin Consult pharmacy glycemic control for insulin management in setting of dexa methasone use (6) HLD (hyperlipidemia): Plan: Continue simvastatin Plan: VTE Prophylaxis - Lovenox as above Diet - dysphagia noted in ER, minced and moist until SLT assessment Disposition - isolation med on med/surg, PT/OT/rehab once stable Admission and Anticipated Discharge Date Admission Date: February 10, 2021 History of Present Illness Chief Complaint: Generalized weakness and loss of appetite. Primary Care Provider: Yuri Michael MD Jeannie Walls is an 85 year old female who presents to the ER with worsening symptoms after recent COVID-19 pneumonia. Unable to get any history from patient and tells me to call her daughter. The patient denies any pain. From prior notes - initial symptoms of COVID-19 pneumonia 01/24/2021. Seen in the ER 2 days after this and diagnosed with COVID-19 pneumonia but felt better after NSS bolus and was discharged home. She returned 2 days later and was hospitalized for 4 days mainly for generalized weakness and recurrent fevers but no significant hypoxia. She was discharged home on February 01. She is now on day 18 of her illness. Of note urine culture from 01/28 grew pansensitive Klebsiella pneumoniae, she was given one dose of antibiotics in the ER for this but subsequently discontinued as suspected to be asymptomatic UTI. Her daughter reports her mothers main symptoms are loss of appetite and generalized weakness. No significant worsening of shortness of breath noticed. She feels her mother will require physical rehabilitation. Reports her POA if her son although he did not brain picker when called but I left a message. In the ER CT angiogram showed pulmonary emboli with progressive bilateral mixed reticular and airspace opacities. She is requiring 3LPM O2 to maintain O2 sats > 94%. Procalcitonin negative. She was referred to medicine for admission and ongoing management of hypoxia, COVID and pneumonia. Allergies Allergy/AdvReac Type Severity Reaction Status Date / Time No Known Allergies Allergy Verified 02/10/21 16:08 Home Medications Medication Instructions Recorded Confirmed Type glipizide 10 mg tablet 20 mg PO BID 01/26/21 02/10/21 History metformin 500 mg tablet 500 mg PO QAM 01/26/21 02/10/21 History metformin 850 mg tablet 850 mg PO QPM 01/26/21 02/10/21 History propylene glycol 0.6 % eye drops 1 drp OPHTHALMIC (EYE) QID PRN 01/26/21 02/10/21 History (Systane Balance) simvastatin 10 mg tablet 10 mg PO DAILY 01/26/21 02/10/21 History sodium chloride 0.65 % nasal spray 1 spray INTRANASAL BID PRN 01/26/21 02/10/21 History aerosol (Saline Mist) omeprazole 20 mg capsule,delayed 20 mg PO DAILY 02/10/21 02/10/21 History release Past Med/Surg History Medical History 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) COVID-19 Diabetes mellitus (02/16/11) Kidney stone (02/16/11) Family History Other Family history non-contributory Social History Smoking Status: Never smoker Hx Alcohol Use: No Hx Substance Use: No Preferred Language: Bulgarian Communication Ability: Effective Director Security Risk Management Required: No Beliefs That Will Affect Care: None Current Living Situation: Family Current Living Situation Comment: lives with grandson Other Information That Helps Us Care for You: No Feels Safe at Home: Yes Safety Concerns: Feels Safe At This Time Assistive Devices: Walker Review of Systems Review of Systems: All systems reviewed & are unremarkable except as noted in HPI & below Physical Exam Constitutional: WD/WN, vitals as above Eyes: PERRL, conjunctivae normal, anicteric sclerae ENMT: Mouth: + dry oral mucous membranes Neck: trachea midline, no thyromegaly Respiratory: + respiratory distress, + labored breathing, + uses accessory muscles and able to speak in complete sentences; no cough, normal respiratory pattern, not tachypneic, expiratory phase not prolonged, no audible wheezes, no pursed lip breathing and no stridor Auscultation: + crackles (bilateral fine crackles throughout); no diminished lung sounds and no wheezes Cardiovascular: RRR, no murmur, no edema Gastrointestinal (Abdomen): Inspection/Auscultation: normal bowel sounds Percussion/Palpation: abdomen soft; abdomen nontender, no guarding and abdomen not rigid Skin: no rashes, warm and dry Neurologic: moves all extremities and awake; no focal motor deficits (no lateralizing weakness) and not confused Psychiatric: A+Ox3, euthymic affect Genitourinary: no CVA tenderness Results & Data Results & Data ([facility]) Vital Signs (Past 12 Hours) Vital Signs Temp Pulse Pulse Resp BP BP Pulse Ox 02/10/21 16:35 90 20 117/57 L 90 02/10/21 15:50 91 H 20 143/79 H 91 02/10/21 15:23 91 H 93 H 20 123/63 93 02/10/21 14:07 37.1 C 93 H 93 H 26 H 123/63 123/63 93 Diagnostic Findings XR chest 1V portable No pneumothorax. No pleural effusion. Interval prominence of patchy airspace opacities throughout peripheral aspect of bilateral lungs, most prominent within bilateral lung bases likely represent multifocal pneumonia. Cardiomediastinal silhouette is within normal limits in size. No significant pulmonary vascular congestion.. Osseous structures: Osteopenia. Probably degenerative changes of the spine. Aorta is calcified. IMPRESSION: 1. Interval development of multifocal pneumonia as detailed above. CT ANGIOGRAM OF THE CHEST There is adequate opacification within main pulmonary artery. Acute acute occlusive pulmonary embolus is seen within left lower lobe and lingular branch is of the pulmonary artery. Pulmonary artery is within upper limits of normal for size. No right heart strain is seen. Right and left atria are slightly enlarged. No pericardial effusion seen. Heavy coronary calcifications and calcifications of the mitral annulus. Aortic wall is calcified. There is no axillary, supra clavicle or internal mammary lymphadenopathy seen. Mediastinal lymph nodes are not enlarged. Prominent right hilar lymph node measuring 1.4 cm in size. Visualized portion of thyroid gland shows no evidence of focal lesions. Esophagus is normal. Thoracic aorta is normal in caliber, tortuous with extensive calcifications of its wall. Tracheobronchial tree is patent. Mixed reticular and airspace opacities are seen throughout bilateral lungs, predominantly peripheral distribution, lower lobe affected more than upper lobe. Evaluation of pulmonary parenchyma is limited due to motion artifact. Limited evaluation of upper abdominal viscera shows no evidence of acute abno rmalities. Osseous structures: Severe diffuse osteopenia and multilevel degenerative changes of the spine. IMPRESSION: 1. Findings are positive for acute pulmonary embolus involving left lower lobe and lingular branches of the pulmonary artery. No right heart strain is seen. Main pulmonary artery is within upper limits of normal. Report will be sent to emergency Department. 2. Multifocal pneumonia/Covid. 3. Atherosclerosis. 4. The rest of findings as above. Medications Administered ER Medications Given: None ECG Indication: SOB/dyspnea Rate (beats per minute): 94 Findings: + T-wave inversion (Anterior) Comparison ECG Date: from (Jan 28, 2021) Change: the following changes noted (TWI are new) Code Status & VTE Plan Code Status Full - need to clarify with POA, unable to get a hold of him on admission VTE Prophylaxis Plan VTE Prophylaxis will be ordered: Yes PG Care Time/CCT Total # of Minutes Spent Total Time Spent with Patient: Total time spent is greater than 50% in coordination of care (as documented) at patient's floor/unit and/or counseling patient: Coding Level of Care Code 30710 Initial Inpt Care Lvl 3 Diagnoses Pneumonia due to 2019 novel coronavirus U07.1; J12.82 Diabetes mellitus E11.9 Acute pulmonary embolism I26.99 Acute respiratory failure with hypoxia J96.01 UTI (urinary tract infection) N39.0 HLD (hyperlipidemia) E78.5
--- NOTE | 2021-02-10 17:57 | CT Scan Report ---
CT ANGIOGRAM OF THE CHEST CLINICAL HISTORY: PE COMPARISON STUDY: January 22, 2011 TECHNIQUE: Following the IV administration of 120 mL of Optiray, CT angiogram of the thorax was perfo rmed from the thoracic inlet to the lung bases utilizing the pulmonary embolus protocol. Images are r eviewed in the axial, sagittal, and coronal planes. IV contrast was administered without complication . MIP imaging was performed. A dose lowering technique was utilized adhering to the principles of AL KRISTINA. CT DOSE: 347.06 mGycm FINDINGS: There is adequate opacification within main pulmonary artery. Acute acute occlusive pulmonary embolus is seen within left lower lobe and lingular branch is of the pulmonary artery. Pulmonary artery is within upper limits of normal for size. No right heart strain is seen. Right and left atria are slightly enlarged. No pericardial effusion seen. Heavy coronary calcificatio ns and calcifications of the mitral annulus. Aortic wall is calcified. There is no axillary, supra clavicle or internal mammary lymphadenopathy seen. Mediastinal lymph node s are not enlarged. Prominent right hilar lymph node measuring 1.4 cm in size. Visualized portion of thyroid gland shows no evidence of focal lesions. Esophagus is normal. Thoracic aorta is normal in caliber, tortuous with extensive calcifications of its wall. Tracheobronchial tree is patent. Mixed reticular and airspace opacities are seen throughout bilateral lungs, predominantly peripheral distribution, lower lobe affected more than upper lobe. Evaluation of pulmonary parenchyma is limited due to motion artifact. Limited evaluation of upper abdominal viscera shows no evidence of acute abnormalities. Osseous structures: Severe diffuse osteopenia and multilevel degenerative changes of the spine. IMPRESSION: 1. Findings are positive for acute pulmonary embolus involving left lower lobe and lingular branches of the pulmonary artery. No right heart strain is seen. Main pulmonary artery is within upper limits of normal. Report will be sent to emergency Department. 2. Multifocal pneumonia/Covid. 3. Atherosclerosis. 4. The rest of findings as above. ACT 112: Negative or not required by law. The above report was generated using voice recognition software. It may contain grammatical, syntax o r spelling errors. Electronically signed by: Dominga Romero DO 02/10/2021 5:55 PM
[2021-02-10] MEDS ORDERED: FAMOTIDINE 20MG/5ML IV PUSH IV STA (17:58)
[2021-02-10] MEDS ORDERED: cefTRIAXone SODIUM 1,000 MG/50 ML BAG IV STA (18:09)
[2021-02-10] MEDS ORDERED: AZITHROMYCIN 500 MG in DEXTROSE 5% 250 ML IV STA (18:09)
[2021-02-10] MEDS ORDERED: dexAMETHasone 6 MG in SYRINGE 0 ML IV STA (18:10)
[2021-02-10] MEDS ORDERED: ENOXAPARIN INJ 60 MG/0.6 ML SYR SC STA (18:13)
[2021-02-10] MEDS ORDERED: SODIUM CHLORIDE 0.65% NA SOLN 45 ML (OCEAN) NAE PRN (21:48)
[2021-02-10] MEDS ORDERED: ACETAMINOPHEN 325 MG TAB PO PRN (21:48)
[2021-02-10] MEDS ORDERED: POLYETHYLENE (MIRALAX) 17 GM PACK PO PRN (21:48)
[2021-02-10] MEDS ORDERED: ONDANSETRON INJ 2 MG/ML 2 ML VIAL IV PRN (21:48)
[2021-02-10] MEDS ORDERED: PHARMACY GLYCEMIC MGMT CONSULT PRN (21:48)
[2021-02-10] MEDS ORDERED: ARTIFICIAL TEARS OP PRN (21:54)
[2021-02-10] MEDS ORDERED: GLUCAGON FOR INJ 1 MG VIAL IM PRN (22:15)
[2021-02-10] MEDS ORDERED: GLUCOSE 40% GEL 15 GM TUBE PO PRN (22:15)
[2021-02-10] MEDS ORDERED: DEXTROSE 50% 50 ML SYRINGE IV PRN (22:15)
[2021-02-10] MEDS ORDERED: CARBOHYDRATES FOR HYPOGLYCEMIA PO PRN (22:15)
[2021-02-10] MEDS ORDERED: GLUCOSE 10 TABS/TUBE PO PRN (22:15)
[2021-02-10] MEDS: ENOXAPARIN INJ 60 MG/0.6 ML SYR SQ SCH (22:22)
[2021-02-10] MEDS: INSULIN ASPART 100 UNITS/ML 3 ML PEN SC SCH (23:37)
[2021-02-11] MEDS ORDERED: INSULIN ASPART 100 UNITS/ML 3 ML PEN SC SCH
[2021-02-11] MEDS: INSULIN ASPART 100 UNITS/ML 3 ML PEN SC SCH ×6 (01:40→21:51)
[2021-02-11 06:43] LABS: Basophils # (auto) 0.01 K/uL (0-0.2); Basophils % (auto) 0.2 %; Eosinophils # (auto) 0.01 K/uL (0-0.5); Eosinophils % (auto) 0.2 %; Hemoglobin 11.5 g/dL (12.0-16.0); Immature Granulocytes # (auto) 0.03 K/uL (0.00-0.02); Immature Granulocytes % (auto) 0.7 %; Lymphocytes # (auto) 0.57 K/uL (1.2-3.4); Lymphocytes % (auto) 12.7 %; Mean Corpuscular Hemoglobin 30.1 pg (25-34); Mean Corpuscular Hgb Conc 33.8 g/dL (32-36); Mean Platelet Volume 10.3 fL (7.4-10.4); Monocytes # (auto) 0.16 K/uL (0.11-0.59); Monocytes % (auto) 3.6 %; Neutrophils # (auto) 3.71 K/uL (1.4-6.5); Neutrophils % (auto) 82.6 %; Platelet Count 232 K/uL (130-400); RDW Coefficient of Variation 12.7 % (11.5-14.5); RDW Standard Deviation 41.1 fL (36.4-46.3); Red Blood Count 3.82 M/uL (4.2-5.4); White Blood Count 4.49 K/uL (4.8-10.8)
[2021-02-11 07:13] LABS: BUN Creatinine Ratio 22.1 (10-20); C Reactive Protein 6.94 mg/dl (0-0.29); Calcium 8.7 mg/dl (8.5-10.1); Est GFR (African American) 92.2 ml/min; Est GFR (Non-African American) 79.6 ml/min; Potassium 3.9 mmol/L (3.5-5.1)
--- NOTE | 2021-02-11 09:30 | Pharmacy Report ---
Pharmacy Glycemic Short Note 2 - Date of Service February 11, 2021 - Glycemic Short BSG Results (Last 24 hours): 02/10/21 02/10/21 02/11/21 15:48 22:32 01:20 Glucose 135 H POC Glucose 169 H 195 H 02/11/21 02/11/21 02/11/21 04:22 05:54 07:57 Glucose 136 H POC Glucose 159 H 126 H OUTPATIENT ANTIDIABETIC REGIMEN: * metformin * glipizide ASSESSMENT: * Ms Walls is an 85 y/o F with a PMH of T2DM on two oral medications. * Per previous hospitalization, patient was on dexamethasone 6 mg IV daily with Lantus 6 units BID plus Novolog CF 65 CR 22. She had some hypoglycemia in the morning plus elevations at the end of the day. * Will not pursue Lantus at this time based upon previous data. * Tight CR to prevent late day hyperglycemia. PLAN FOR INPATIENT GLYCEMIC CONTROL: * Hold outpatient oral diabetes medications * Basal insulin- hold for now * Bolus insulin * NovoLog per scale ACHS or Q6hrs while NPO * Goal Range: Low 110 mg/dL - High 140 mg/dL * Correction Factor: 25 mg/dL/unit * Nutritional / Prandial insulin per carb ratio of 1 unit per 9 grams CHO consumed PLAN FOR DISCHARGE: * TBD- HbA1C ordered
[2021-02-11] MEDS: SIMVASTATIN 10 MG TAB PO SCH (09:37)
[2021-02-11] MEDS: dexAMETHasone 6 MG in SYRINGE 0 ML IV SCH (09:37)
[2021-02-11] MEDS: PANTOprazole 40 MG TAB PO SCH (09:37)
[2021-02-11] MEDS: ENOXAPARIN INJ 60 MG/0.6 ML SYR SQ SCH ×2 (09:40→21:40)
--- NOTE | 2021-02-11 12:17 | Hospitalist Progress Note ---
Date of Service February 11, 2021 Assessment & Plan (1) Acute respiratory failure with hypoxia: Plan: several reasons for hypoxemia - COVID 19 pneumonia, treat with dexamethasone - Left lower lobe PE: Lovenox - possible bacterial pneumonia: antibiotics currently on 6L, breathing comfortably, try to wean as tolerated (2) Pneumonia due to 2019 novel coronavirus: Plan: Discussed with Carlyn Haley from infection control and recommended continuing isolation until 18 days (after first positive test) continue dexamethasone 6mg IV daily, treat for 10 days Azithromycin to cover for atypical pneumonia, treat for 5 days Ceftriaxone daily x 5 days, this is covering possible UTI as well Procalcitonin negative (3) Acute pulmonary embolism: Plan: Secondary to COVID-19 Anticoagulation with Lovenox 1mg/kg BID which is 60mg BID for her change to Xarelto once ready for discharge would need 3-6 months of treatment (4) UTI (urinary tract infection): Plan: Difficult to rule out this is not contributory towards her weakness, loss of appetite and confusion. Recommend treating for 5 days with ceftriaxone. (5) Diabetes mellitus: Plan: HbA1C 7.5 in Jul, repeat with AM labs Hold outpatient glipizide and metformin Consult pharmacy glycemic control for insulin management in setting of dexamethasone use Novolog SS ordered for time being (6) HLD (hyperlipidemia): Plan: Continue simvastatin Plan: VTE Prophylaxis - Lovenox as above Diet - dysphagia noted in ER, minced and moist until SLT assessment, eating well today Disposition - isolation med on med/surg, PT/OT/rehab once stable Admission and Anticipated Discharge Date Admission Date: February 10, 2021 Subjective patient sitting up in bed eating lunch, no distress at all she is on 6L she denies any chest pain, fever/chills she has a cough, occasional sputum production that is yellow no diarrhea, no nausea/vomiting she has been sick for 18 days, she was in the hospital last week for weakness, dehydration but was not hypoxic discharged on 02/02 to home she now has hypoxia, ground glass changes on CT chest, new left lower lobe PE on CTA chest per family, she is very weak, will need rehab once medically stable Review of Systems Review of Systems: All systems reviewed & are unremarkable except as noted in Subjective Physical Exam Physical Exam: General: well developed, well nourished female, thin, no acute distress, comfortable Neck: supple, trachea midline, normal thyroid Lungs: clear to auscultation bilaterally, normal respiratory effort, no accessory muscle use, no distress Heart: regular S1 and S2, no murmur, peripheral pulses normal, capillary refill normal, no edema Abdomen: soft, NT, ND, + BS, no hepatomegaly, normal to percussion Extremities: normal in appearance, no cyanosis, no petechiae, strength is 5/5 bilaterally Neuro: awake, cooperative, moves all extremities, no focal motor deficits, CN II-XII intact, sensation in extremities intact, normal speech Skin: warm, dry, no rash, normal turgor Psych: Awake, alert oriented x 3, euthymic affect Results & Data Results & Data ([facility]) Vital Signs (Past 12 Hours) Vital Signs Temp Pulse Resp BP BP Pulse Ox 02/11/21 11:45 92 02/11/21 11:42 94 02/11/21 11:35 84 L 02/11/21 10:05 91 02/11/21 07:24 36.5 C 71 18 111/61 93 02/11/21 04:20 36.4 C 86 18 120/67 94 Laboratory Results Laboratory Results - last 24 hr 02/10/21 02/10/21 02/10/21 15:36 15:48 15:48 WBC 6.28 RBC 3.95 L Hgb 12.0 Hct 35.4 L MCV 89.6 MCH 30.4 MCHC 33.9 RDW Std Deviation 41.6 RDW Coeff of Tabatha 12.7 Plt Count 245 MPV 10.0 Immature Gran % (Auto) 0.5 Neut % (Auto) 78.0 Lymph % (Auto) 14.5 Barton % (Auto) 5.3 Eos % (Auto) 1.4 Baso % (Auto) 0.3 Neut # (Auto) 4.90 Lymph # (Auto) 0.91 L Barton # (Auto) 0.33 Eos # (Auto) 0.09 Baso # (Auto) 0.02 Immature Gran # (Auto) 0.03 H PT 10.4 INR 1.0 APTT 26.5 PTT Ratio 1.0 D-Dimer 9050 H* Sodium Potassium Chloride Carbon Dioxide Anion Gap BUN Creatinine Est Cr Clr Drug Dosing Est GFR ( Amer) Est GFR (Non-Af Amer) BUN/Creatinine Ratio Glucose POC Glucose Estimat Average Glucose Hemoglobin A1c Lactate Calcium Magnesium Total Bilirubin AST ALT Alkaline Phosphatase Lactate Dehydrogenase Troponin I C-Reactive Protein NT-Pro-B Natriuret Pep Total Protein Albumin Globulin Albumin/Globulin Ratio Procalcitonin Urine Color Yellow Urine Appearance Clear Urine pH 5.5 Ur Specific Montgomery 1.014 Urine Protein Negative Urine Glucose (UA) Negative Urine Ketones 1+ H Urine Blood Negative Urine Nitrite Positive A Urine Bilirubin Negative Urine Urobilinogen Negative Ur Leukocyte Esterase 1+ H Urine WBC (Auto) 10-30 H Urine RBC (Auto) 0-4 U Hyaline Cast (Auto) 10-30 H U Epithel Cells (Auto) >30 H Urine Bacteria (Auto) 4+ H COVID-19 Eval Order SARS-CoV-2 (PCR) 02/10/21 02/10/21 02/10/21 15:48 15:48 15:48 WBC RBC Hgb Hct MCV MCH MCHC RDW Std Deviation RDW Coeff of Tabatha Plt Count MPV Immature Gran % (Auto) Neut % (Auto) Lymph % (Auto) Barton % (Auto) Eos % (Auto) Baso % (Auto) Neut # (Auto) Lymph # (Auto) Barton # (Auto) Eos # (Auto) Baso # (Auto) Immature Gran # (Auto) PT INR APTT PTT Ratio D-Dimer Sodium 136 Potassium 3.2 L Chloride 103 Carbon Dioxide 22 Anion Gap 11.0 BUN 18 Creatinine 0.78 Est Cr Clr Drug Dosing 42.1 Est GFR ( Amer) 79.8 Est GFR (Non-Af Amer) 68.8 BUN/Creatinine Ratio 22.7 H Glucose 135 H POC Glucose Estimat Average Glucose Hemoglobin A1c Lactate 1.4 Calcium 8.7 Magnesium 1.9 Total Bilirubin 0.9 AST 36 ALT 34 Alkaline Phosphatase 73 Lactate Dehydrogenase Troponin I < 0.015 C-Reactive Protein NT-Pro-B Natriuret Pep 1272 Total Protein 6.2 L Albumin 2.4 L Globulin 3.8 Albumin/Globulin Ratio 0.6 L Procalcitonin < 0.05 Urine Color Urine Appearance Urine pH Ur Specific Montgomery Urine Protein Urine Glucose (UA) Urine Ketones Urine Blood Urine Nitrite Urine Bilirubin Urine Urobilinogen Ur Leukocyte Esterase Urine WBC (Auto) Urine RBC (Auto) U Hyaline Cast (Auto) U Epithel Cells (Auto) Urine Bacteria (Auto) COVID-19 Eval Order SARS-CoV-2 (PCR) 02/10/21 02/10/21 02/10/21 15:48 15:48 15:48 WBC RBC Hgb Hct MCV MCH MCHC RDW Std Deviation RDW Coeff of Tabatha Plt Count MPV Immature Gran % (Auto) Neut % (Auto) Lymph % (Auto) Barton % (Auto) Eos % (Auto) Baso % (Auto) Neut # (Auto) Lymph # (Auto) Barton # (Auto) Eos # (Auto) Baso # (Auto) Immature Gran # (Auto) PT INR APTT PTT Ratio D-Dimer Sodium Potassium Chloride Carbon Dioxide Anion Gap BUN Creatinine Est Cr Clr Drug Dosing Est GFR ( Amer) Est GFR (Non-Af Amer) BUN/Creatinine Ratio Glucose POC Glucose Estimat Average Glucose Hemoglobin A1c Lactate Calcium Magnesium Total Bilirubin AST ALT Alkaline Phosphatase Lactate Dehydrogenase 398 H Troponin I C-Reactive Protein Cancelled 8.46 H NT-Pro-B Natriuret Pep Total Protein Albumin Globulin Albumin/Globulin Ratio Procalcitonin Urine Color Urine Appearance Urine pH Ur Specific [place] Urine Protein Urine Glucose (UA) Urine Ketones Urine Blood Urine Nitrite Urine Bilirubin Urine Urobilinogen Ur Leukocyte Esterase Urine WBC (Auto) Urine RBC (Auto) U Hyaline Cast (Auto) U Epithel Cells (Auto) Urine Bacteria (Auto) COVID-19 Eval Order SARS-CoV-2 (PCR) 02/10/21 02/10/21 02/10/21 15:59 15:59 22:32 WBC RBC Hgb Hct MCV MCH MCHC RDW Std Deviation RDW Coeff of Tabatha Plt Count MPV Immature Gran % (Auto) Neut % (Auto) Lymph % (Auto) Barton % (Auto) Eos % (Auto) Baso % (Auto) Neut # (Auto) Lymph # (Auto) Barton # (Auto) Eos # (Auto) Baso # (Auto) Immature Gran # (Auto) PT INR APTT PTT Ratio D-Dimer Sodium Potassium Chloride Carbon Dioxide Anion Gap BUN Creatinine Est Cr Clr Drug Dosing Est GFR ( Amer) Est GFR (Non-Af Amer) BUN/Creatinine Ratio Glucose POC Glucose 169 H Estimat Average Glucose Hemoglobin A1c Lactate Calcium Magnesium Total Bilirubin AST ALT Alkaline Phosphatase Lactate Dehydrogenase Troponin I C-Reactive Protein NT-Pro-B Natriuret Pep Total Protein Albumin Globulin Albumin/Globulin Ratio Procalcitonin Urine Color Urine Appearance Urine pH Ur Specific [place] Urine Protein Urine Glucose (UA) Urine Ketones Urine Blood Urine Nitrite Urine Bilirubin Urine Urobilinogen Ur Leukocyte Esterase Urine WBC (Auto) Urine RBC (Auto) U Hyaline Cast (Auto) U Epithel Cells (Auto) Urine Bacteria (Auto) COVID-19 Eval Order Covid19 at [facility] SARS-CoV-2 (PCR) POSITIVE A* 02/11/21 02/11/21 02/11/21 01:20 04:22 05:54 WBC RBC Hgb Hct MCV MCH MCHC RDW Std Deviation RDW Coeff of Tabatha Plt Count MPV Immature Gran % (Auto) Neut % (Auto) Lymph % (Auto) Barton % (Auto) Eos % (Auto) Baso % (Auto) Neut # (Auto) Lymph # (Auto) Barton # (Auto) Eos # (Auto) Baso # (Auto) Immature Gran # (Auto) PT INR APTT PTT Ratio D-Dimer Sodium Potassium Chloride Carbon Dioxide Anion Gap BUN Creatinine Est Cr Clr Drug Dosing Est GFR ( Amer) Est GFR (Non-Af Amer) BUN/Creatinine Ratio Glucose POC Glucose 195 H 159 H Estimat Average Glucose Pending Hemoglobin A1c Pending Lactate Calcium Magnesium Total Bilirubin AST ALT Alkaline Phosphatase Lactate Dehydrogenase Troponin I C-Reactive Protein NT-Pro-B Natriuret Pep Total Protein Albumin Globulin Albumin/Globulin Ratio Procalcitonin Urine Color Urine Appearance Urine pH Ur Specific [place] Urine Protein Urine Glucose (UA) Urine Ketones Urine Blood Urine Nitrite Urine Bilirubin Urine Urobilinogen Ur Leukocyte Esterase Urine WBC (Auto) Urine RBC (Auto) U Hyaline Cast (Auto) U Epithel Cells (Auto) Urine Bacteria (Auto) COVID-19 Eval Order SARS-CoV-2 (PCR) 02/11/21 02/11/21 02/11/21 05:54 05:54 07:57 WBC 4.49 L RBC 3.82 L Hgb 11.5 L Hct 34.0 L MCV 89.0 MCH 30.1 MCHC 33.8 RDW Std Deviation 41.1 RDW Coeff of Tabatha 12.7 Plt Count 232 MPV 10.3 Immature Gran % (Auto) 0.7 Neut % (Auto) 82.6 Lymph % (Auto) 12.7 Barton % (Auto) 3.6 Eos % (Auto) 0.2 Baso % (Auto) 0.2 Neut # (Auto) 3.71 Lymph # (Auto) 0.57 L Barton # (Auto) 0.16 Eos # (Auto) 0.01 Baso # (Auto) 0.01 Immature Gran # (Auto) 0.03 H PT INR APTT PTT Ratio D-Dimer Sodium 137 Potassium 3.9 D Chloride 107 Carbon Dioxide 24 Anion Gap 6.0 BUN 15 Creatinine 0.67 Est Cr Clr Drug Dosing 49.0 Est GFR ( Amer) 92.2 Est GFR (Non-Af Amer) 79.6 BUN/Creatinine Ratio 22.1 H Glucose 136 H POC Glucose 126 H Estimat Average Glucose Hemoglobin A1c Lactate Calcium 8.7 Magnesium Total Bilirubin AST ALT Alkaline Phosphatase Lactate Dehydrogenase Troponin I C-Reactive Protein 6.94 H NT-Pro-B Natriuret Pep Total Protein Albumin Globulin Albumin/Globulin Ratio Procalcitonin Urine Color Urine Appearance Urine pH Ur Specific [place] Urine Protein Urine Glucose (UA) Urine Ketones Urine Blood Urine Nitrite Urine Bilirubin Urine Urobilinogen Ur Leukocyte Esterase Urine WBC (Auto) Urine RBC (Auto) U Hyaline Cast (Auto) U Epithel Cells (Auto) Urine Bacteria (Auto) COVID-19 Eval Order SARS-CoV-2 (PCR) 02/11/21 11:54 WBC RBC Hgb Hct MCV MCH MCHC RDW Std Deviation RDW Coeff of Tabatha Plt Count MPV Immature Gran % (Auto) Neut % (Auto) Lymph % (Auto) Barton % (Auto) Eos % (Auto) Baso % (Auto) Neut # (Auto) Lymph # (Auto) Barton # (Auto) Eos # (Auto) Baso # (Auto) Immature Gran # (Auto) PT INR APTT PTT Ratio D-Dimer Sodium Potassium Chloride Carbon Dioxide Anion Gap BUN Creatinine Est Cr Clr Drug Dosing Est GFR ( Amer) Est GFR (Non-Af Amer) BUN/Creatinine Ratio Glucose POC Glucose 191 H Estimat Average Glucose Hemoglobin A1c Lactate Calcium Magnesium Total Bilirubin AST ALT Alkaline Phosphatase Lactate Dehydrogenase Troponin I C-Reactive Protein NT-Pro-B Natriuret Pep Total Protein Albumin Globulin Albumin/Globulin Ratio Procalcitonin Urine Color Urine Appearance Urine pH Ur Specific [place] Urine Protein Urine Glucose (UA) Urine Ketones Urine Blood Urine Nitrite Urine Bilirubin Urine Urobilinogen Ur Leukocyte Esterase Urine WBC (Auto) Urine RBC (Auto) U Hyaline Cast (Auto) U Epithel Cells (Auto) Urine Bacteria (Auto) COVID-19 Eval Order SARS-CoV-2 (PCR) Medications Administered Current Inpatient Medications Acetaminophen (Acetaminophen 325 Mg Tab) 650 mg PO Q4H PRN PRN Reason: pain/fever Stop: 03/12/21 21:47 Artificial Tears (Artificial Tears) 1 drops OP QID PRN PRN Reason: Dry Eye(S) Stop: 03/12/21 21:53 Dextrose (Dextrose 50% 50 Ml Syringe) 25 - 50 ml IV UD PRN; Protocol PRN Reason: Hypoglycemia Protocol Stop: 03/12/21 22:14 Enoxaparin Sodium (Enoxaparin Inj 60 Mg/0.6 Ml Syr) 60 mg SQ Q12 IRIS Stop: 03/12/21 22:14 Last Admin: 02/11/21 09:40 Dose: 60 mg Documented by: Glucagon (Glucagon For Inj 1 Mg Vial) 1 mg IM UD PRN; Protocol PRN Reason: Hypoglycemia Protocol Stop: 03/12/21 22:14 Glucose (Glucose 40% Gel 15 Gm Tube) 15 - 30 gm PO UD PRN; Protocol PRN Reason: Hypoglycemia Protocol Stop: 03/12/21 22:14 Glucose (Glucose 10 Tabs/Tube) 4 - 8 tabs PO UD PRN; Protocol PRN Reason: Hypoglycemia Protocol Stop: 03/12/21 22:14 Dexamethasone 6 mg/ Syringe 1.5 mls @ 1 mls/min IV QAM IRIS Stop: 02/20/21 08:59 Last Admin: 02/11/21 09:37 Dose: 1 mls/min Documented by: Ceftriaxone Sodium 1,000 mg/ (Dextrose) 50 mls @ 100 mls/hr IV Q24H RIIS; Protocol Stop: 02/16/21 18:59 Azithromycin 250 mg/ Dextrose 252.5 mls @ 125 mls/hr IV Q24H IRIS; Protocol Stop: 02/18/21 16:59 Insulin Aspart (Insulin Aspart 100 Units/Ml 3 Ml Pen) 0 units SC ACHS IRIS Stop: 03/12/21 22:14 Last Admin: 02/11/21 09:38 Dose: 2 units Documented by: Miscellaneous (Carbohydrates For Hypoglycemia ) 15 - 30 gm PO UD PRN PRN Reason: Hypoglycemia Treatment Stop: 03/12/21 22:14 Miscellaneous Information (Pharmacy Glycemic Mgmt Consult) 1 ea N/A UD PRN PRN Reason: Consult Stop: 03/12/21 21:47 Ondansetron HCl (Ondansetron Inj 2 Mg/Ml 2 Ml Vial) 4 mg IV Q6H PRN PRN Reason: Nausea Stop: 03/12/21 21:47 Pantoprazole Sodium (Pantoprazole 40 Mg Tab) 40 mg PO DAILY [facility]; Protocol Stop: 03/13/21 08:59 Last Admin: 02/11/21 09:37 Dose: 40 mg Documented by: Polyethylene Glycol (Polyethylene (Miralax) 17 Gm Pack) 17 gm PO DAILY PRN PRN Reason: Constipation Stop: 03/12/21 21:47 Simvastatin (Simvastatin 10 Mg Tab) 10 mg PO DAILY IRIS Stop: 03/13/21 08:59 Last Admin: 02/11/21 09:37 Dose: 10 mg Documented by: Sodium Chloride (Sodium Chloride 0.65% Na Soln 45 Ml ([place])) 1 sprays LAMAR BID PRN PRN Reason: nasal dryness Stop: 03/12/21 21:47 PG Care Time/CCT Total # of Minutes Spent Total Time Spent with Patient: Total time spent is greater than 50% in coordination of care (as documented) at patient's floor/unit and/or counseling patient: Coding Level of Care Code 37542 Subseq Hosp Care Lvl 3 Diagnoses Acute respiratory failure with hypoxia J96.01 Pneumonia due to 2019 novel coronavirus U07.1; J12.82 Acute pulmonary embolism I26.99 UTI (urinary tract infection) N39.0 Diabetes mellitus E11.9 HLD (hyperlipidemia) E78.5
[2021-02-11] MEDS: AZITHROMYCIN 250 MG in DEXTROSE 5% 250 ML IV SCH (16:31)
[2021-02-11] MEDS: cefTRIAXone SODIUM 1,000 MG in DEXTROSE 5% 50 ML IV SCH (18:38)
[2021-02-12 08:19] LABS: Estimated Average Glucose 169 mg/dl; Hemoglobin A1C 7.5 % (4.5-5.6)
[2021-02-12] MEDS ORDERED: INSULIN HUMAN NPH SC SCH (09:00)
[2021-02-12] MEDS: dexAMETHasone 6 MG in SYRINGE 0 ML IV SCH (09:03)
[2021-02-12] MEDS: PANTOprazole 40 MG TAB PO SCH (09:03)
[2021-02-12] MEDS: SIMVASTATIN 10 MG TAB PO SCH (09:03)
[2021-02-12] MEDS: INSULIN ASPART 100 UNITS/ML 3 ML PEN SC SCH ×4 (09:04→21:25)
[2021-02-12] MEDS: ENOXAPARIN INJ 60 MG/0.6 ML SYR SQ SCH ×2 (09:05→20:32)
--- NOTE | 2021-02-12 15:14 | Pharmacy Report ---
Pharmacy Glycemic Short Note 2 - Date of Service February 12, 2021 - Glycemic Short BSG Results (Last 24 hours): 02/11/21 02/11/21 02/12/21 16:49 20:38 07:53 POC Glucose 242 H 229 H 83 02/12/21 11:40 POC Glucose 129 H OUTPATIENT ANTIDIABETIC REGIMEN: * metformin * glipizide ASSESSMENT: 02/12 * Jeannie received 21 units of novolog insulin yesterday. No basal. She experienced post prandial hyperglycemia likely due to dexamethasone IV. * Will add low dose NPH to cover for steroid induced hyperglycemia * Fasting BSG is at goal. No long acting basal insulin needed. 02/11 * Ms Walls is an 85 y/o F with a PMH of T2DM on two oral medications. * Per previous hospitalization, patient was on dexamethasone 6 mg IV daily with Lantus 6 units BID plus Novolog CF 65 CR 22. She had some hypoglycemia in the morning plus elevations at the end of the day. * Will not pursue Lantus at this time based upon previous data. * Tight CR to prevent late day hyperglycemia. PLAN FOR INPATIENT GLYCEMIC CONTROL: * Hold outpatient oral diabetes medications * Basal insulin * NPH 12 units SQ daily given with dexamethasone * Bolus insulin * NovoLog per scale ACHS or Q6hrs while NPO * Goal Range: Low 110 mg/dL - High 140 mg/dL * Correction Factor: 30 mg/dL/unit * Nutritional / Prandial insulin per carb ratio of 1 unit per 6 grams CHO consumed PLAN FOR DISCHARGE: * TBD- HbA1C ordered
[2021-02-12] MEDS: AZITHROMYCIN 250 MG in DEXTROSE 5% 250 ML IV SCH (17:47)
--- NOTE | 2021-02-12 19:00 | Hospitalist Progress Note ---
Date of Service February 12, 2021 Assessment & Plan (1) Acute respiratory failure with hypoxia: Plan: Multifactorial - COVID-19 pneumonia, PEs, +/- bacterial superinfection. No evidence of complicating CHF. Treat individual components as below. Needs better pulmonary toilet as tolerated - add flutter valve, add incentive spirometry, add mucinex 600mg BID. (2) Pneumonia due to 2019 novel coronavirus: Plan: First COVID test that was positive was on 01/26/21. Thus, she is 16 days from that test. She has had COVID symptoms since 01/24/21 (day 18 of illness). She has received 10+ days of IV/PO dexamethasone since her first hospital stay - will stop. Currently on rocephin + zithromax, day #3 of each. Both added in the event of bacterial superinfection of lungs. Rocephin will cover UTI as well. Out of window for remdesivir. Continue supportive care. Cont Rx of PEs. (3) Acute pulmonary embolism: Plan: Secondary to COVID-19 infection. Cont Lovenox 1mg/kg BID. At discharge consider eliquis or xarelto. Would Rx for 6 months in total. Consider checking dopplers of legs once out of isolation. (4) UTI (urinary tract infection): Plan: Grew out klebsiella during prior admission but this was not treated. now growing GNR. Rocephin should suffice. Follow cx. (5) Diabetes mellitus: Plan: Hold glipizide and metformin pharmacy glycemic consult appreciated (6) HLD (hyperlipidemia): Plan: Continue simvastatin recent ast/alt wnl recent CPK scantly elevated (7) Chronic kidney disease, stage 3a: Plan: CrCl on last check was stable repeat BMP in am Plan: PT, OT for weakness, debility family updated by phone (daughter) will likely need rehab post-d/c cont airborne isolation - d/w infection control when she can come out of such Admission and Anticipated Discharge Date Admission Date: February 10, 2021 Subjective patient c/o fatigue, weakness, cough, [place]; no dyspnea at rest having hard time taking deep breaths; did not have incentive blane in the room during my bedside visit no chest pain no abdominal pain eating fine no diarrhea or emesis sleeping ok at night Review of Systems Review of Systems: gen - no fevers or chills ENT - no loss of smell but things have "tasted salty" since her illness began Pulm - minimal sputum CV - no chest pain Physical Exam Physical Exam: gen - looks tired & sickly, minimal amount of confusion mouth - MMM, no lesions neck - no JVD heart - RRR, s1 s2, 2/6 olimpia LSB lungs - diffuse bibasilar fine rales, no wheeze abd - soft NT ND BS+ ext - no edema, pulses 2+ b/l psych - minimal amount of confusion, had hard time remembering the names of her children Results & Data Results & Data ([facility]) Vital Signs (Past 12 Hours) Vital Signs Temp Pulse Resp BP Pulse Ox 02/12/21 15:28 36.5 C 82 22 100/52 L 92 Laboratory Results Laboratory Results - last 24 hr 02/11/21 02/11/21 02/12/21 05:54 20:38 07:53 POC Glucose 229 H 83 Estimat Average Glucose 169 Hemoglobin A1c 7.5 H 02/12/21 02/12/21 11:40 16:35 POC Glucose 129 H 189 H Estimat Average Glucose Hemoglobin A1c PG Care Time/CCT Total # of Minutes Spent Total Time Spent with Patient: Total time spent is greater than 50% in coordination of care (as documented) at patient's floor/unit and/or counseling patient: Coding Level of Care Code 96364 Subseq Hosp Care Lvl 3 Diagnoses Acute respiratory failure with hypoxia J96.01 Pneumonia due to 2019 novel coronavirus U07.1; J12.82 Acute pulmonary embolism I26.99 UTI (urinary tract infection) N39.0 Diabetes mellitus E11.9 HLD (hyperlipidemia) E78.5 Chronic kidney disease, stage 3a N18.31
[2021-02-12] MEDS: cefTRIAXone SODIUM 1,000 MG in DEXTROSE 5% 50 ML IV SCH (20:31)
[2021-02-12] MEDS: guaiFENesin 600 MG TABCR PO SCH (20:32)
[2021-02-13 08:47] LABS: Basophils # (auto) 0.01 K/uL (0-0.2); Basophils % (auto) 0.2 %; Eosinophils # (auto) 0.04 K/uL (0-0.5); Eosinophils % (auto) 0.6 %; Hematocrit (blood only) 37.5 % (37-47); Hemoglobin 12.3 g/dL (12.0-16.0); Immature Granulocytes # (auto) 0.03 K/uL (0.00-0.02); Immature Granulocytes % (auto) 0.5 %; Lymphocytes # (auto) 1.24 K/uL (1.2-3.4); Lymphocytes % (auto) 18.7 %; Mean Corpuscular Hgb Conc 32.8 g/dL (32-36); Mean Corpuscular Volume 91.5 fL (80-100); Mean Platelet Volume 9.8 fL (7.4-10.4); Monocytes # (auto) 0.49 K/uL (0.11-0.59); Monocytes % (auto) 7.4 %; Neutrophils # (auto) 4.83 K/uL (1.4-6.5); Neutrophils % (auto) 72.6 %; Platelet Count 271 K/uL (130-400); RDW Coefficient of Variation 12.8 % (11.5-14.5); RDW Standard Deviation 43.1 fL (36.4-46.3); White Blood Count 6.64 K/uL (4.8-10.8)
[2021-02-13] MEDS: INSULIN ASPART 100 UNITS/ML 3 ML PEN SC SCH ×4 (08:53→22:26)
[2021-02-13] MEDS: SIMVASTATIN 10 MG TAB PO SCH (08:55)
[2021-02-13] MEDS: PANTOprazole 40 MG TAB PO SCH (08:55)
[2021-02-13] MEDS: guaiFENesin 600 MG TABCR PO SCH ×2 (08:55→22:26)
[2021-02-13] MEDS: ENOXAPARIN INJ 60 MG/0.6 ML SYR SQ SCH ×2 (08:55→22:26)
[2021-02-13 09:06] LABS: BUN Creatinine Ratio 28.8 (10-20); C Reactive Protein 1.38 mg/dl (0-0.29); Calcium 8.8 mg/dl (8.5-10.1); Creatinine Clr Calc Pharmacy 46.3 ml/min; Est GFR (African American) 89.4 ml/min; Est GFR (Non-African American) 77.1 ml/min; Potassium 3.6 mmol/L (3.5-5.1)
[2021-02-13 09:17] LABS: Thyroid Stimulating Hormone 1.18 uIu/ml (0.300-4.500)
--- NOTE | 2021-02-13 10:42 | Pharmacy Report ---
Pharmacy Glycemic Short Note 2 - Date of Service February 13, 2021 - Glycemic Short BSG Results (Last 24 hours): 02/12/21 02/12/21 02/12/21 11:40 16:35 21:06 Glucose POC Glucose 129 H 189 H 241 H 02/13/21 02/13/21 07:43 08:26 Glucose 98 POC Glucose 98 OUTPATIENT ANTIDIABETIC REGIMEN: * metformin * glipizide * HbA1c 7.5% on 02/11/21 ASSESSMENT: 02/13 * Dexamethasone discontinued yesterday as the patient has received 10+ days of dexamethasone for COVID-19 (including prior admission) * Will stop basal insulin - AM fasting BSG yesterday (while on steroids and not on basal insulin at that point) was only 83 mg/dL * Will loosen Novolog parameters now - may require ongoing adjustment (either increase or decrease) depending on trend in BSG 02/12 * Jeannie received 21 units of novolog insulin yesterday. No basal. She experienced post prandial hyperglycemia likely due to dexamethasone IV. * Will add low dose NPH to cover for steroid induced hyperglycemia * Fasting BSG is at goal. No long acting basal insulin needed. 02/11 * Ms Walls is an 85 y/o F with a PMH of T2DM on two oral medications. * Per previous hospitalization, patient was on dexamethasone 6 mg IV daily with Lantus 6 units BID plus Novolog CF 65 CR 22. She had some hypoglycemia in the morning plus elevations at the end of the day. * Will not pursue Lantus at this time based upon previous data. * Tight CR to prevent late day hyperglycemia. PLAN FOR INPATIENT GLYCEMIC CONTROL: * Hold outpatient oral diabetes medications * Basal insulin * Discontinue * Bolus insulin - loosen * NovoLog per scale ACHS or Q6hrs while NPO * Goal Range: Low 110 mg/dL - High 140 mg/dL * Correction Factor: 40 mg/dL/unit * Nutritional / Prandial insulin per carb ratio of 1 unit per 10 grams CHO consumed PLAN FOR DISCHARGE: * Continue home glipizide and metformin, assuming that no contraindications exist at discharge and assuming patient is not experiencing frequent hypoglycemia as an outpatient
--- NOTE | 2021-02-13 12:53 | XRay Report ---
XR chest 1V portable HISTORY: 85 years-old Female COVID pneumonia, worsening hypoxia acute hypoxia with pneumonia COMPARISON: 02/10/2021 chest radiograph and CTA chest TECHNIQUE: Portable AP view of the chest FINDINGS: The cardiomediastinal and hilar silhouettes are within normal limits. Bilateral mixed interstitial an d alveolar opacities are redemonstrated, right greater than left. Peripheral predominant distribution . There is no significant change from comparison. No pneumothorax or large pleural effusion. No overt pulmonary edema. Degenerative changes of the shoulders and spine. IMPRESSION: Unchanged appearance of the chest with multifocal pneumonia redemonstrated. ACT 112: Negative or not required by law. The above report was generated using voice recognition software. It may contain grammatical, syntax o r spelling errors. Electronically signed by: Tony Barreto M.D. 02/13/2021 12:51 PM
[2021-02-13] MEDS ORDERED: FUROSEMIDE 20 MG TAB PO ONE (15:30)
[2021-02-13] MEDS ORDERED: POTASSIUM CHLORIDE 10 MEQ TABCR PO ONE (15:30)
[2021-02-13] MEDS: AZITHROMYCIN 250 MG in DEXTROSE 5% 250 ML IV SCH (17:50)
--- NOTE | 2021-02-13 20:58 | Hospitalist Progress Note ---
Date of Service February 13, 2021 Assessment & Plan (1) Acute respiratory failure with hypoxia: Plan: Multifactorial - COVID-19 pneumonia, PEs, +/- bacterial superinfection. Treat individual components as below. Cont pulmonary toilet as tolerated - flutter valve, incentive spirometry, mucinex 600mg BID. Will give lasix 20mg po x 1 to see if any clinical improvement with such. (although no overt edema on cxr today) (2) Pneumonia due to 2019 novel coronavirus: Plan: First COVID test that was positive was on 01/26/21. Thus, she is 17 days from that test. She has had COVID symptoms since 01/24/21 (day 19 of illness). She has received 10+ days of IV/PO dexamethasone since her first hospital stay - steroids stopped. Currently on rocephin + zithromax, day #4 of each. Both added in the event of bacterial superinfection of lungs. Rocephin will cover UTI as well. Out of window for remdesivir. Continue supportive care. Cont Rx of PEs (lovenox). (3) Acute pulmonary embolism: Plan: Secondary to COVID-19 infection. Cont Lovenox 1mg/kg BID. At discharge consider eliquis or xarelto. Would Rx for 6 months in total. Consider checking dopplers of legs once out of isolation. (4) UTI (urinary tract infection): Plan: Grew out klebsiella during prior admission but this was not treated. now growing klebsiella again along with a 2nd GNR. Rocephin should suffice. Follow cx to finalization. (5) Diabetes mellitus: Plan: Hold glipizide and metformin pharmacy glycemic consult appreciated control adequate (6) HLD (hyperlipidemia): Plan: Continue simvastatin recent ast/alt wnl recent CPK scantly elevated no Rx needed (7) Chronic kidney disease, stage 3a: Plan: BMP again stable today Plan: PT, OT for weakness, debility patient will need rehab post-d/c updated daughter yesterday by phone left another message today on daughter's voicemail Admission and Anticipated Discharge Date Admission Date: February 10, 2021 Subjective patient this am worked with therapy, was out of bed washing up, then returned to bed and was doing incentive device - patient desatted with doing such to the 70s O2 turned up to 10 liters and recovery took 10+ minutes by the time I saw her on rounds her O2 sats were low 90s on 2 L NC she voices same complaints as yesterday - "I can't take deep breaths" and "it's shallow" eating well fatigue present Review of Systems Review of Systems: gen - fatigue, weakness; no anorexia CV - no chest pain; some orthopnea pulm - severe RAGSDALE; some dyspnea at rest as well GI - no diarrhea, no abd pain, no N/V psych - anxious Physical Exam Physical Exam: gen - looks same as yesterday; tends to take shallow breaths; anxious mouth - MMM, no lesions neck - no JVD heart - RRR, s1 s2, 2/6 systolic murmur LSB lungs - diffuse bibasilar fine rales, no wheeze; minimal tachypnea abd - soft NT ND BS+ ext - no edema, pulses 2+ b/l psych - oriented x 3 today Results & Data Results & Data ([facility]) Vital Signs (Past 12 Hours) Vital Signs Temp Pulse Resp BP Pulse Ox 02/13/21 16:06 94 02/13/21 15:45 37.0 C 83 20 119/58 L 94 02/13/21 11:00 93 02/13/21 10:35 20 93 02/13/21 10:30 95 02/13/21 10:25 96 02/13/21 10:15 28 H 92 02/13/21 10:00 30 H 90 02/13/21 09:51 88 L 02/13/21 09:50 36 H 79 L Laboratory Results Laboratory Results - last 24 hr 02/12/21 02/13/21 02/13/21 21:06 07:43 08:26 WBC 6.64 RBC 4.10 L Hgb 12.3 Hct 37.5 MCV 91.5 MCH 30.0 MCHC 32.8 RDW Std Deviation 43.1 RDW Coeff of Tabatha 12.8 Plt Count 271 MPV 9.8 Immature Gran % (Auto) 0.5 Neut % (Auto) 72.6 Lymph % (Auto) 18.7 Ballard % (Auto) 7.4 Eos % (Auto) 0.6 Baso % (Auto) 0.2 Neut # (Auto) 4.83 Lymph # (Auto) 1.24 Ballard # (Auto) 0.49 Eos # (Auto) 0.04 Baso # (Auto) 0.01 Immature Gran # (Auto) 0.03 H Sodium Potassium Chloride Carbon Dioxide Anion Gap BUN Creatinine Est Cr Clr Drug Dosing Est GFR ( Amer) Est GFR (Non-Af Amer) BUN/Creatinine Ratio Glucose POC Glucose 241 H 98 Calcium C-Reactive Protein TSH 02/13/21 02/13/21 02/13/21 08:26 11:39 16:39 WBC RBC Hgb Hct MCV MCH MCHC RDW Std Deviation RDW Coeff of Tabatha Plt Count MPV Immature Gran % (Auto) Neut % (Auto) Lymph % (Auto) Ballard % (Auto) Eos % (Auto) Baso % (Auto) Neut # (Auto) Lymph # (Auto) Ballard # (Auto) Eos # (Auto) Baso # (Auto) Immature Gran # (Auto) Sodium 141 Potassium 3.6 Chloride 107 Carbon Dioxide 27 Anion Gap 7.0 BUN 21 H Creatinine 0.71 Est Cr Clr Drug Dosing 46.3 Est GFR ( Amer) 89.4 Est GFR (Non-Af Amer) 77.1 BUN/Creatinine Ratio 28.8 H Glucose 98 POC Glucose 164 H 192 H Calcium 8.8 C-Reactive Protein 1.38 H TSH 1.180 02/13/21 20:42 WBC RBC Hgb Hct MCV MCH MCHC RDW Std Deviation RDW Coeff of Tabatha Plt Count MPV Immature Gran % (Auto) Neut % (Auto) Lymph % (Auto) Ballard % (Auto) Eos % (Auto) Baso % (Auto) Neut # (Auto) Lymph # (Auto) Ballard # (Auto) Eos # (Auto) Baso # (Auto) Immature Gran # (Auto) Sodium Potassium Chloride Carbon Dioxide Anion Gap BUN Creatinine Est Cr Clr Drug Dosing Est GFR ( Amer) Est GFR (Non-Af Amer) BUN/Creatinine Ratio Glucose POC Glucose 164 H Calcium C-Reactive Protein TSH PG Care Time/CCT Total # of Minutes Spent Total Time Spent with Patient: Total time spent is greater than 50% in coordination of care (as documented) at patient's floor/unit and/or counseling patient: Coding Level of Care Code 54608 Subseq Hosp Care Lvl 2 Diagnoses Acute respiratory failure with hypoxia J96.01 Pneumonia due to 2019 novel coronavirus U07.1; J12.82 Acute pulmonary embolism I26.99 UTI (urinary tract infection) N39.0 Diabetes mellitus E11.9 HLD (hyperlipidemia) E78.5 Chronic kidney disease, stage 3a N18.31
[2021-02-13] MEDS: cefTRIAXone SODIUM 1,000 MG in DEXTROSE 5% 50 ML IV SCH (22:25)
[2021-02-14 06:58] LABS: BUN Creatinine Ratio 21.8 (10-20); Calcium 8.9 mg/dl (8.5-10.1); Creatinine Clr Calc Pharmacy 47.6 ml/min; Est GFR (African American) 91.4 ml/min; Est GFR (Non-African American) 78.8 ml/min; Potassium 4.2 mmol/L (3.5-5.1)
[2021-02-14] MEDS ORDERED: INSULIN GLARGINE SOLOSTAR 100 UNITS/ML 3 ML PEN SC ONE (07:30)
[2021-02-14] MEDS ORDERED: FUROSEMIDE 20 MG TAB PO ONE (08:15)
[2021-02-14] MEDS: INSULIN ASPART 100 UNITS/ML 3 ML PEN SC SCH ×4 (09:19→21:44)
[2021-02-14] MEDS: ENOXAPARIN INJ 60 MG/0.6 ML SYR SQ SCH ×2 (09:22→20:26)
[2021-02-14] MEDS: PANTOprazole 40 MG TAB PO SCH (09:23)
[2021-02-14] MEDS: guaiFENesin 600 MG TABCR PO SCH ×2 (09:23→20:26)
[2021-02-14] MEDS: SIMVASTATIN 10 MG TAB PO SCH (09:24)
--- NOTE | 2021-02-14 12:32 | Pharmacy Report ---
Pharmacy Glycemic Short Note 2 - Date of Service February 14, 2021 - Glycemic Short BSG Results (Last 24 hours): 02/13/21 02/13/21 02/14/21 16:39 20:42 05:48 Glucose 171 H POC Glucose 192 H 164 H 02/14/21 02/14/21 08:14 11:51 Glucose POC Glucose 188 H 201 H OUTPATIENT ANTIDIABETIC REGIMEN: * metformin * glipizide * HbA1c 7.5% on 02/11/21 ASSESSMENT: 02/14 * Stressors stable - no dexamethasone since 02/12 * AM fasting BSG elevated after holding basal yesterday. Will initiate low-dose Lantus as only a small amount of NPH was adequate to control AM fasting BSG will on steroids * Post-prandial BSG's elevated x3 yesterday >160 mg/dL. Will slightly tighten correction factor and CHO ratio 02/13 * Dexamethasone discontinued yesterday as the patient has received 10+ days of dexamethasone for COVID-19 (including prior admission) * Will stop basal insulin - AM fasting BSG yesterday (while on steroids and not on basal insulin at that point) was only 83 mg/dL * Will loosen Novolog parameters now - may require ongoing adjustment (either increase or decrease) depending on trend in BSG 02/12 * Jeannie received 21 units of novolog insulin yesterday. No basal. She experienced post prandial hyperglycemia likely due to dexamethasone IV. * Will add low dose NPH to cover for steroid induced hyperglycemia * Fasting BSG is at goal. No long acting basal insulin needed. 02/11 * Ms Walls is an 85 y/o F with a PMH of T2DM on two oral medications. * Per previous hospitalization, patient was on dexamethasone 6 mg IV daily with Lantus 6 units BID plus Novolog CF 65 CR 22. She had some hypoglycemia in the morning plus elevations at the end of the day. * Will not pursue Lantus at this time based upon previous data. * Tight CR to prevent late day hyperglycemia. PLAN FOR INPATIENT GLYCEMIC CONTROL: * Hold outpatient oral diabetes medications * Basal insulin * Start Lantus. 10 units SC x1 now * Bolus insulin - tighten * NovoLog per scale ACHS or Q6hrs while NPO * Goal Range: Low 110 mg/dL - High 140 mg/dL * Correction Factor: 35 mg/dL/unit * Nutritional / Prandial insulin per carb ratio of 1 unit per 9 grams CHO consumed PLAN FOR DISCHARGE: * Continue home glipizide and metformin, assuming that no contraindications exist at discharge and assuming patient is not experiencing frequent hypoglyce gloria as an outpatient
[2021-02-14] MEDS: AZITHROMYCIN 250 MG in DEXTROSE 5% 250 ML IV SCH (17:59)
[2021-02-14] MEDS: cefTRIAXone SODIUM 1,000 MG in DEXTROSE 5% 50 ML IV SCH (20:11)
--- NOTE | 2021-02-14 22:52 | Hospitalist Progress Note ---
Date of Service February 14, 2021 Assessment & Plan (1) Acute respiratory failure with hypoxia: Plan: Multifactorial - COVID-19 pneumonia, PEs, +/- bacterial superinfection. Treat individual components as below. Cont pulmonary toilet as tolerated - flutter valve, incentive spirometry, mucinex 600mg BID. Will give lasix 20mg po x 1 again today -- had good UOP with lasix yesterday and stable BMP today. Suspect she will remain on NC O2 following discharge. (2) Pneumonia due to 2019 novel coronavirus: Plan: First COVID test that was positive was on 01/26/21. Thus, she is 18 days from that test. She has had COVID symptoms since 01/24/21 (day 20 of illness). Completed 10+ days of IV/PO dexamethasone = now off steroids. Currently on rocephin + zithromax, day #5 of each. Both added in the event of bacterial superinfection of lungs. Out of window for remdesivir. Continue supportive care. Cont Rx of PEs (lovenox). d/c rocephin/zithro - give 2 more days of augmentin (cover lungs + urine). (3) Acute pulmonary embolism: Plan: Secondary to COVID-19 infection. Cont Lovenox 1mg/kg BID. At discharge consider eliquis or xarelto. Would Rx for 6 months in total. Consider checking dopplers of legs once out of isolation. (4) UTI (urinary tract infection): Plan: Grew out klebsiella during prior admission but this was not treated. now growing klebsiella x 2 different species. d/c rocephin. change to 2 more days of augmentin then stop all abx. (5) Diabetes mellitus: Plan: Cont to Hold glipizide and metformin pharmacy glycemic consult appreciated control labile at times but give the circumstances not unacceptable (6) HLD (hyperlipidemia): Plan: Continue simvastatin recent ast/alt wnl recent CPK scantly elevated no Rx needed (7) Chronic kidney disease, stage 3a: Plan: BMP again stable today repeat BMP in am due to lasix Plan: PT, OT for weakness, debility patient will need rehab post-d/c updated daughter by phone earlier this week left another message yesterday on daughter's voicemail will update family tomorrow Admission and Anticipated Discharge Date Admission Date: February 10, 2021 Subjective no issues overnight sats stable 2 L NC c/o fatigue, weakness, cough/congestion, difficulty taking deep breaths she says "I don't know..." - when asked to clarify she means that she simply feels poorly eating is still robust, however Review of Systems Review of Systems: gen - no fevers, no chills CV - no chest pain pulm - ongoing severe RAGSDALE GI - no abd pain Physical Exam Physical Exam: gen - looks same as yesterday; tends to take shallow breaths and very anxious affect; a/o x3 mouth - MMM, no lesions neck - no JVD heart - RRR, s1 s2, 2/6 systolic murmur LSB lungs - diffuse bibasilar fine rales, no wheeze; no changes today abd - soft NT ND BS+ ext - no edema, pulses 2+ b/l Results & Data Results & Data ([facility]) Vital Signs (Past 12 Hours) Vital Signs Temp Pulse Resp BP Pulse Ox 02/14/21 15:26 36.8 C 86 20 117/67 95 Laboratory Results Laboratory Results - last 24 hr 02/14/21 02/14/21 02/14/21 05:48 08:14 11:51 Sodium 138 Potassium 4.2 D Chloride 106 Carbon Dioxide 23 Anion Gap 9.0 BUN 15 Creatinine 0.69 Est Cr Clr Drug Dosing 47.6 Est GFR ( Amer) 91.4 Est GFR (Non-Af Amer) 78.8 BUN/Creatinine Ratio 21.8 H Glucose 171 H POC Glucose 188 H 201 H Calcium 8.9 02/14/21 02/14/21 02/14/21 16:35 20:18 20:50 Sodium Potassium Chloride Carbon Dioxide Anion Gap BUN Creatinine Est Cr Clr Drug Dosing Est GFR ( Amer) Est GFR (Non-Af Amer) BUN/Creatinine Ratio Glucose POC Glucose 143 H 217 H 201 H Calcium PG Care Time/CCT Total # of Minutes Spent Total Time Spent with Patient: Total time spent is greater than 50% in coordination of care (as documented) at patient's floor/unit and/or counseling patient: Coding Level of Care Code 27190 Subseq Hosp Care Lvl 3 Diagnoses Acute respiratory failure with hypoxia J96.01 Pneumonia due to 2019 novel coronavirus U07.1; J12.82 Acute pulmonary embolism I26.99 UTI (urinary tract infection) N39.0 Diabetes mellitus E11.9 HLD (hyperlipidemia) E78.5 Chronic kidney disease, stage 3a N18.31
[2021-02-15 08:08] LABS: BUN Creatinine Ratio 25.4 (10-20); Creatinine Clr Calc Pharmacy 57.6 ml/min; Est GFR (African American) 97.3 ml/min; Est GFR (Non-African American) 83.9 ml/min; Magnesium 1.8 mg/dl (1.8-2.4)
[2021-02-15] MEDS ORDERED: POTASSIUM CHLORIDE 10 MEQ TABCR PO STA (08:32)
[2021-02-15] MEDS ORDERED: FUROSEMIDE 20 MG TAB PO ONE (09:00)
[2021-02-15] MEDS ORDERED: INSULIN GLARGINE SOLOSTAR 100 UNITS/ML 3 ML PEN SC ONE (09:00)
[2021-02-15] MEDS: SIMVASTATIN 10 MG TAB PO SCH (09:25)
[2021-02-15] MEDS: PANTOprazole 40 MG TAB PO SCH (09:25)
[2021-02-15] MEDS: guaiFENesin 600 MG TABCR PO SCH ×2 (09:25→19:45)
[2021-02-15] MEDS: ENOXAPARIN INJ 60 MG/0.6 ML SYR SQ SCH ×2 (09:25→19:45)
[2021-02-15] MEDS: ADVANCED PROBIOTIC 1250 MG CAPSULE PO SCH (09:25)
[2021-02-15] MEDS: AMOXICILLIN/CLAVULANATE 875 MG TAB PO SCH ×2 (09:26→18:12)
[2021-02-15] MEDS: INSULIN ASPART 100 UNITS/ML 3 ML PEN SC SCH ×4 (09:28→21:36)
--- NOTE | 2021-02-15 11:14 | Pharmacy Report ---
Pharmacy Glycemic Short Note 2 - Date of Service February 15, 2021 - Glycemic Short BSG Results (Last 24 hours): 02/14/21 02/14/21 02/14/21 11:51 16:35 20:18 Glucose POC Glucose 201 H 143 H 217 H 02/14/21 02/15/21 02/15/21 20:50 06:33 07:24 Glucose 151 H POC Glucose 201 H 153 H OUTPATIENT ANTIDIABETIC REGIMEN: * metformin * glipizide * HbA1c 7.5% on 02/11/21 ASSESSMENT: 02/15 * Stressors stable * AM fasting BSG trended down after initiated Lantus yesterday, but still above goal. Will slightly increase. * Post-prandial BSG's elevated yesterday for 2 of 3 checks, both >200 mg/dL. Will tighten CHO ratio. Tightened again at lunch today 2nd lunch BSG still >200 mg/dL despite tightening this AM 02/14 * Stressors stable - no dexamethasone since 02/12 * AM fasting BSG elevated after holding basal yesterday. Will initiate low-dose Lantus as only a small amount of NPH was adequate to control AM fasting BSG will on steroids * Post-prandial BSG's elevated x3 yesterday >160 mg/dL. Will slightly tighten correction factor and CHO ratio 02/13 * Dexamethasone discontinued yesterday as the patient has received 10+ days of dexamethasone for COVID-19 (including prior admission) * Will stop basal insulin - AM fasting BSG yesterday (while on steroids and not on basal insulin at that point) was only 83 mg/dL * Will loosen Novolog parameters now - may require ongoing adjustment (either increase or decrease) depending on trend in BSG 02/12 * Jeannie received 21 units of novolog insulin yesterday. No basal. She experienced post prandial hyperglycemia likely due to dexamethasone IV. * Will add low dose NPH to cover for steroid induced hyperglycemia * Fasting BSG is at goal. No long acting basal insulin needed. PLAN FOR INPATIENT GLYCEMIC CONTROL: * Hold outpatient oral diabetes medications * Basal insulin - increase * Lantus 14 units SC x1 now * Bolus insulin - tighten * NovoLog per scale ACHS or Q6hrs while NPO * Goal Range: Low 110 mg/dL - High 140 mg/dL * Correction Factor: 35 mg/dL/unit * Nutritional / Prandial insulin per carb ratio of 1 unit per 7 grams CHO consumed PLAN FOR DISCHARGE: * Continue home glipizide and metformin, assuming that no contraindications exist at discharge and assuming patient is not experiencing frequent hypoglycemia as an outpatient
--- NOTE | 2021-02-15 21:24 | Hospitalist Progress Note ---
Date of Service February 15, 2021 Assessment & Plan (1) Acute respiratory failure with hypoxia: Plan: Multifactorial - COVID-19 pneumonia, PEs, +/- bacterial superinfection. Slowly improving. Treat individual components as below. Cont pulmonary toilet as tolerated - flutter valve, incentive spirometry, mucinex 600mg BID. Will give lasix 20mg po x 1 again today to keep fluid balance modestly negative. BMP am. Wean NC O2 as tolerated. (2) Pneumonia due to 2019 novel coronavirus: Plan: First COVID test that was positive was on 01/26/21. Thus, she is 19 days from that test. She has had COVID symptoms since 01/24/21 (day 21 of illness). Completed 10+ days of IV/PO dexamethasone. steroids complete. Did not receive remdesivir. Continue supportive care. Cont Rx of PEs (lovenox). s/p 5 days of rocephin/zithro for possible bacterial superinfection. will finish 2-day course of augmentin tomorrow. (3) Acute pulmonary embolism: Plan: Secondary to COVID-19 infection. Cont Lovenox 1mg/kg BID. will change to xarelto in am. Would Rx for 6 months in total. Consider checking dopplers of legs once out of isolation. (4) UTI (urinary tract infection): Plan: Grew out klebsiella during prior admission but this was not treated. grew klebsiella x 2 different species this admission. 7-day course of IV/PO abx - this will finish tomorrow. (5) Diabetes mellitus: Plan: Cont to Hold glipizide and metformin pharmacy glycemic consult appreciated (6) HLD (hyperlipidemia): Plan: Continue simvastatin recent ast/alt wnl recent CPK scantly elevated no Rx needed (7) Chronic kidney disease, stage 3a: Plan: BMP again stable today repeat BMP in am due to lasix Plan: PT, OT for weakness, debility patient will need rehab post-d/c updated daughter by phone this evening getting closer to hospital d/c Admission and Anticipated Discharge Date Admission Date: February 10, 2021 Subjective no issues overnight feeling fatigued but eating well slept ok last night still with RAGSDALE but no worse than previous no dyspnea or orthopnea at rest no abd pain Review of Systems Review of Systems: gen - no fevers/chills CV - no chest pain psych - anxiety GI - no nausea/vomiting Physical Exam Physical Exam: gen - NAD; best she as looked all week mouth - MMM, no lesions neck - no JVD heart - RRR, s1 s2, 2/6 systolic murmur LLSB lungs - diffuse bibasilar fine/dry rales - unchanged abd - soft NT ND BS+ ext - trace edema b/l; pulses 2+ b/l Results & Data Results & Data ([facility]) Vital Signs (Past 12 Hours) Vital Signs Temp Pulse Pulse Resp BP BP Pulse Ox 02/15/21 19:26 36.6 C 93 H 18 110/64 94 02/15/21 15:15 36.8 C 89 17 114/61 95 Laboratory Results Laboratory Results - last 24 hr 02/15/21 02/15/21 02/15/21 06:33 07:24 11:12 Sodium 137 Potassium 4.0 Chloride 105 Carbon Dioxide 23 Anion Gap 9.0 BUN 14 Creatinine 0.57 L Est Cr Clr Drug Dosing 57.6 Est GFR ( Amer) 97.3 Est GFR (Non-Af Amer) 83.9 BUN/Creatinine Ratio 25.4 H Glucose 151 H POC Glucose 153 H 254 H Calcium 9.0 Magnesium 1.8 02/15/21 02/15/21 02/15/21 16:22 16:23 16:53 Sodium Potassium Chloride Carbon Dioxide Anion Gap BUN Creatinine Est Cr Clr Drug Dosing Est GFR ( Amer) Est GFR (Non-Af Amer) BUN/Creatinine Ratio Glucose POC Glucose 59 L* 58 L* 121 H Calcium Magnesium 02/15/21 20:38 Sodium Potassium Chloride Carbon Dioxide Anion Gap BUN Creatinine Est Cr Clr Drug Dosing Est GFR ( Amer) Est GFR (Non-Af Amer) BUN/Creatinine Ratio Glucose POC Glucose 183 H Calcium Magnesium PG Care Time/CCT Total # of Minutes Spent Total Time Spent with Patient: Total time spent is greater than 50% in coordination of care (as documented) at patient's floor/unit and/or counseling patient: Coding Level of Care Code 43052 Subseq Hosp Care Lvl 2 Diagnoses Acute respiratory failure with hypoxia J96.01 Pneumonia due to 2019 novel coronavirus U07.1; J12.82 Acute pulmonary embolism I26.99 UTI (urinary tract infection) N39.0 Diabetes mellitus E11.9 HLD (hyperlipidemia) E78.5 Chronic kidney disease, stage 3a N18.31
[2021-02-16] MEDS: INSULIN ASPART 100 UNITS/ML 3 ML PEN SC SCH ×7 (06:55→23:10)
[2021-02-16 07:19] LABS: BUN Creatinine Ratio 19.2 (10-20); Calcium 8.7 mg/dl (8.5-10.1); Creatinine Clr Calc Pharmacy 47.6 ml/min; Est GFR (African American) 91.4 ml/min; Est GFR (Non-African American) 78.8 ml/min; Potassium 3.6 mmol/L (3.5-5.1)
[2021-02-16] MEDS ORDERED: FUROSEMIDE 20 MG TAB PO ONE (07:55)
[2021-02-16] MEDS ORDERED: POTASSIUM CHLORIDE CRTAB 20 MEQ TABCR PO STA (07:55)
[2021-02-16] MEDS ORDERED: MAGNESIUM OXIDE 400 MG TAB PO ONE (07:56)
[2021-02-16] MEDS: SIMVASTATIN 10 MG TAB PO SCH (08:18)
[2021-02-16] MEDS: PANTOprazole 40 MG TAB PO SCH (08:18)
[2021-02-16] MEDS: AMOXICILLIN/CLAVULANATE 875 MG TAB PO SCH ×2 (08:18→17:53)
[2021-02-16] MEDS: guaiFENesin 600 MG TABCR PO SCH ×2 (08:19→21:12)
[2021-02-16] MEDS: ADVANCED PROBIOTIC 1250 MG CAPSULE PO SCH (08:19)
[2021-02-16] MEDS: RIVAROXABAN 15 MG TAB PO SCH ×2 (09:48→21:12)
[2021-02-16] MEDS: INSULIN GLARGINE SOLOSTAR 100 UNITS/ML 3 ML PEN SC SCH (09:52)
--- NOTE | 2021-02-16 12:34 | Pharmacy Report ---
Pharmacy Glycemic Short Note 2 - Date of Service February 16, 2021 - Glycemic Short BSG Results (Last 24 hours): 02/15/21 02/15/21 02/15/21 16:22 16:23 16:53 Glucose POC Glucose 59 L* 58 L* 121 H 02/15/21 02/16/21 02/16/21 20:38 06:00 06:49 Glucose 161 H POC Glucose 183 H 150 H 02/16/21 11:49 Glucose POC Glucose 218 H OUTPATIENT ANTIDIABETIC REGIMEN: * metformin * glipizide * HbA1c 7.5% on 02/11/21 ASSESSMENT: 02/16 * Stressors stable * Severe hypoglycemia noted prior to dinner yesterday after CHO ratio tightened a 2nd time. Will loosen CHO ratio back to previous, and loosen even further with lunch check to prevent severe low at dinner * AM fasting BSG still slightly above goal range, however, Lantus is not yet at steady state. Will therefore continue same dose 02/15 * Stressors stable * AM fasting BSG trended down after initiated Lantus yesterday, but still above goal. Will slightly increase. * Post-prandial BSG's elevated yesterday for 2 of 3 checks, both >200 mg/dL. Will tighten CHO ratio. Tightened again at lunch today 2nd lunch BSG still >200 mg/dL despite tightening this AM 02/14 * Stressors stable - no dexamethasone since 02/12 * AM fasting BSG elevated after holding basal yesterday. Will initiate low-dose Lantus as only a small amount of NPH was adequate to control AM fasting BSG will on steroids * Post-prandial BSG's elevated x3 yesterday >160 mg/dL. Will slightly tighten correction factor and CHO ratio PLAN FOR INPATIENT GLYCEMIC CONTROL: * Hold outpatient oral diabetes medications * Basal insulin - continue * Lantus 14 units SC x1 now * Bolus insulin - loosen * NovoLog per scale ACHS or Q6hrs while NPO * Goal Range: Low 110 mg/dL - High 140 mg/dL * Correction Factor: 35 mg/dL/unit * Carb ratio: 8 g CHO/unit (except lunch, which is 9 g CHO/unit) PLAN FOR DISCHARGE: * Continue home glipizide and metformin, assuming that no contraindications exist at discharge and assuming patient is not experiencing frequent hypoglycemia as an outpatient
--- NOTE | 2021-02-16 23:32 | Hospitalist Progress Note ---
Date of Service February 16, 2021 Assessment & Plan (1) Acute respiratory failure with hypoxia: Plan: Resolved. Multifactorial - COVID-19 pneumonia, PEs, +/- bacterial superinfection. 1 more dose of po lasix today to encourage neg fluid balance. Previous doses of lasix tolerated with stable BMPs. Does need to be checked for ambulatory O2 prior to discharge. (2) Pneumonia due to 2019 novel coronavirus: Plan: She has had COVID symptoms since 01/24/21 (day 22 of illness). She has improved nicely and O2 has been weaned off. Completed 10+ days of IV/PO dexamethasone. Did not receive remdesivir. Cont Rx of PEs - change lovenox to xarelto 15mg BID. s/p 5 days of rocephin/zithro for possible bacterial superinfection, then 2 days of augmentin. I corresponded with Infection Control & airborne isolation may be d/c at this time. (3) Acute pulmonary embolism: Plan: Secondary to COVID-19 infection. d/c lovenox - change to xarelto 15mg BID x 21 days, then 20mg thereafter daily for total 6 months. Consider checking dopplers of legs. (4) UTI (urinary tract infection): Plan: Grew out klebsiella during prior admission but this was not treated. grew klebsiella x 2 different species this admission. s/p 7-day course of IV/PO abx -- abx now complete. (5) Diabetes mellitus: Plan: Cont to Hold glipizide and metformin pharmacy glycemic consult appreciated adequate control (6) HLD (hyperlipidemia): Plan: Continue simvastatin recent ast/alt wnl recent CPK scantly elevated (7) Chronic kidney disease, stage 3a: Plan: BMP again stable today repeat BMP in am due to lasix Plan: cont PT, OT for weakness, debility updated daughter by phone this evening once again submit auth for rehab [facility] d/c once approved for rehab Admission and Anticipated Discharge Date Admission Date: February 10, 2021 Subjective patient weaned off NC O2 early this am she has remained stable in room air since that time no dyspnea at rest since O2 weaned off she has dry cough - no change she has mild RAGSDALE - no change cont to eat well sleep still an issue Review of Systems Review of Systems: gen - fatigue, weakness; but good appetite CV - no chest pain GI - no abd pain Pulm - no wheeze Physical Exam Physical Exam: gen - NAD, looks good mouth - MMM, no lesions neck - no JVD heart - RRR, s1 s2, 2/6 systolic murmur LLSB lungs - diffuse bibasilar fine/dry rales - mildly improved today abd - soft NT ND BS+ ext - no edema, pulses 2+ b/l psych - a/o x 3 Results & Data Results & Data ([facility]) Vital Signs (Past 12 Hours) Vital Signs Temp Pulse Resp BP Pulse Ox 02/16/21 22:00 36.6 C 92 H 18 123/55 L 94 02/16/21 16:31 36.5 C 98 H 20 114/59 L 92 Laboratory Results Laboratory Results - last 24 hr 02/16/21 02/16/21 02/16/21 06:00 06:49 11:49 Sodium 136 Potassium 3.6 Chloride 105 Carbon Dioxide 26 Anion Gap 6.0 BUN 13 Creatinine 0.69 Est Cr Clr Drug Dosing 47.6 Est GFR ( Amer) 91.4 Est GFR (Non-Af Amer) 78.8 BUN/Creatinine Ratio 19.2 Glucose 161 H POC Glucose 150 H 218 H Calcium 8.7 02/16/21 02/16/21 16:37 20:06 Sodium Potassium Chloride Carbon Dioxide Anion Gap BUN Creatinine Est Cr Clr Drug Dosing Est GFR ( Amer) Est GFR (Non-Af Amer) BUN/Creatinine Ratio Glucose POC Glucose 104 H 206 H Calcium PG Care Time/CCT Total # of Minutes Spent Total Time Spent with Patient: Total time spent is greater than 50% in coordination of care (as documented) at patient's floor/unit and/or counseling patient: Coding Level of Care Code 71823 Subseq Hosp Care Lvl 2 Diagnoses Acute respiratory failure with hypoxia J96.01 Pneumonia due to 2019 novel coronavirus U07.1; J12.82 Acute pulmonary embolism I26.99 UTI (urinary tract infection) N39.0 Diabetes mellitus E11.9 HLD (hyperlipidemia) E78.5 Chronic kidney disease, stage 3a N18.31
[2021-02-17] MEDS: guaiFENesin 600 MG TABCR PO SCH ×2 (07:54→21:05)
[2021-02-17] MEDS: PANTOprazole 40 MG TAB PO SCH (07:54)
[2021-02-17] MEDS: RIVAROXABAN 15 MG TAB PO SCH ×2 (07:55→21:05)
[2021-02-17] MEDS: SIMVASTATIN 10 MG TAB PO SCH (07:55)
[2021-02-17] MEDS: ADVANCED PROBIOTIC 1250 MG CAPSULE PO SCH (07:55)
[2021-02-17 08:18] LABS: BUN Creatinine Ratio 19.7 (10-20); Calcium 8.9 mg/dl (8.5-10.1); Creatinine Clr Calc Pharmacy 47.2 ml/min; Est GFR (African American) 90.9 ml/min; Est GFR (Non-African American) 78.5 ml/min; Potassium 3.8 mmol/L (3.5-5.1)
[2021-02-17] MEDS ORDERED: POTASSIUM CHLORIDE 10 MEQ TABCR PO STA (08:24)
[2021-02-17] MEDS: INSULIN GLARGINE SOLOSTAR 100 UNITS/ML 3 ML PEN SC SCH (08:57)
[2021-02-17] MEDS: INSULIN ASPART 100 UNITS/ML 3 ML PEN SC SCH ×4 (08:58→21:51)
[2021-02-17] MEDS ORDERED: FUROSEMIDE 20 MG TAB PO ONE (09:00)
--- NOTE | 2021-02-17 21:10 | Hospitalist Progress Note ---
Date of Service February 17, 2021 Assessment & Plan (1) Acute respiratory failure with hypoxia: Plan: Resolved. off O2 now x 48 hours. o2 sats borderline low only with activity today when she walked in hallway (dipped to 87%). Multifactorial - COVID-19 pneumonia, PEs, +/- bacterial superinfection. 1 more dose of po lasix today to encourage neg fluid balance. Shouldn't need any further does beyond today. Does need to be checked for ambulatory O2 prior to discharge. (2) Pneumonia due to 2019 novel coronavirus: Plan: RESOLVING. She has had COVID symptoms since 01/24/21 (day 23 of illness). Now in room air. Completed 10+ days of IV/PO dexamethasone. Did not receive remdesivir. Cont Rx of PEs - changed lovenox to xarelto 15mg BID yesterday. Plan 21 days of such, then 20mg daily thereafter. s/p 5 days of rocephin/zithro for possible bacterial superinfection, then 2 days of augmentin. All abx are complete. I corresponded with Infection Control on Friday & airborne isolation may be d/c at this time. (3) Acute pulmonary embolism: Plan: Secondary to COVID-19 infection. d/c lovenox - change to xarelto 15mg BID x 21 days, then 20mg thereafter daily for total 6 months. Consider checking dopplers of legs tomorrow. (4) UTI (urinary tract infection): Plan: Grew out klebsiella during prior admission but this was not treated. grew klebsiella x 2 different species this admission. s/p 7-day course of IV/PO abx -- abx now complete. (5) Diabetes mellitus: Plan: Cont to Hold glipizide and metformin pharmacy glycemic consult appreciated adequate control (6) HLD (hyperlipidemia): Plan: Continue simvastatin (7) Chronic kidney disease, stage 3a: Plan: BMP again stable today repeat BMP in am due to lasix today Plan: cont PT, OT for weakness, debility updated daughter by phone this evening once again auth pending for rehab at [facility] can d/c once approved for rehab tx to med/surg non-isolation room Admission and Anticipated Discharge Date Admission Date: February 10, 2021 Subjective patient feeling very well today eating well mild cough mild dyspnea only w/ exertion walked in hallway today moving bowels sleeping still is challenging informed her of pending auth for rehab - hopefully will have it by Friday no new issues Review of Systems Review of Systems: gen - fatigue, but no anorexia CV - no chest pain GI - no abd pain Pulm - no wheeze, cough/congestion/RAGSDALE still present Physical Exam Physical Exam: gen - NAD, looks really good today mouth - MMM, no lesions neck - no JVD heart - RRR, s1 s2, 2/6 systolic murmur LLSB - no changes lungs - bibasilar fine/dry rales - again continues to improve/sound better abd - soft NT ND BS+ ext - no edema, pulses 2+ b/l psych - a/o x 3 Results & Data Results & Data ([facility]) Vital Signs (Past 12 Hours) Vital Signs Temp Pulse Resp BP Pulse Ox 02/17/21 16:14 36.6 C 89 20 114/61 93 Laboratory Results Laboratory Results - last 24 hr 02/17/21 02/17/21 02/17/21 06:46 07:37 11:56 Sodium 138 Potassium 3.8 Chloride 105 Carbon Dioxide 25 Anion Gap 7.0 BUN 14 Creatinine 0.70 Est Cr Clr Drug Dosing 47.2 Est GFR ( Amer) 90.9 Est GFR (Non-Af Amer) 78.5 BUN/Creatinine Ratio 19.7 Glucose 149 H POC Glucose 137 H 213 H Calcium 8.9 02/17/21 02/17/21 16:44 20:03 Sodium Potassium Chloride Carbon Dioxide Anion Gap BUN Creatinine Est Cr Clr Drug Dosing Est GFR ( Amer) Est GFR (Non-Af Amer) BUN/Creatinine Ratio Glucose POC Glucose 117 H 114 H Calcium PG Care Time/CCT Total # of Minutes Spent Total Time Spent with Patient: Total time spent is greater than 50% in coordination of care (as documented) at patient's floor/unit and/or counseling patient: Coding Level of Care Code 74581 Subseq Hosp Care Lvl 2 Diagnoses Acute respiratory failure with hypoxia J96.01 Pneumonia due to 2019 novel coronavirus U07.1; J12.82 Acute pulmonary embolism I26.99 UTI (urinary tract infection) N39.0 Diabetes mellitus E11.9 HLD (hyperlipidemia) E78.5 Chronic kidney disease, stage 3a N18.31
[2021-02-18] MEDS: PANTOprazole 40 MG TAB PO SCH (08:44)
[2021-02-18] MEDS: ADVANCED PROBIOTIC 1250 MG CAPSULE PO SCH (08:45)
[2021-02-18] MEDS: SIMVASTATIN 10 MG TAB PO SCH (08:45)
[2021-02-18 08:46] LABS: BUN Creatinine Ratio 18.4 (10-20); Calcium 9.1 mg/dl (8.5-10.1); Creatinine Clr Calc Pharmacy 49.3 ml/min; Est GFR (African American) 92.7 ml/min; Potassium 3.9 mmol/L (3.5-5.1)
[2021-02-18] MEDS: INSULIN ASPART 100 UNITS/ML 3 ML PEN SC SCH ×4 (08:46→20:37)
[2021-02-18] MEDS: guaiFENesin 600 MG TABCR PO SCH ×2 (08:46→20:26)
[2021-02-18] MEDS: INSULIN GLARGINE SOLOSTAR 100 UNITS/ML 3 ML PEN SC SCH (08:47)
[2021-02-18] MEDS: RIVAROXABAN 15 MG TAB PO SCH ×2 (08:47→20:26)
--- NOTE | 2021-02-18 10:44 | Pharmacy Report ---
Pharmacy Glycemic Short Note 2 - Date of Service February 18, 2021 - Glycemic Short BSG Results (Last 24 hours): 02/17/21 02/17/21 02/17/21 11:56 16:44 20:03 Glucose POC Glucose 213 H 117 H 114 H 02/18/21 02/18/21 07:27 07:58 Glucose 132 H POC Glucose 120 H OUTPATIENT ANTIDIABETIC REGIMEN: * metformin * glipizide * HbA1c 7.5% on 02/11/21 ASSESSMENT: 02/18 * Pt has received 27 units of insulin over the past 24hrs * 14 units of basal with Lantus * 13 units of bolus with NovoLog * BSGs [phone] mg/dl * Blood sugar rise breakfast to lunch - tighten CR at breakfast * No other changes needed at this time 02/16 * Stressors stable * Severe hypoglycemia noted prior to dinner yesterday after CHO ratio tightened a 2nd time. Will loosen CHO ratio back to previous, and loosen even further with lunch check to prevent severe low at dinner * AM fasting BSG still slightly above goal range, however, Lantus is not yet at steady state. Will therefore continue same dose 02/15 * Stressors stable * AM fasting BSG trended down after initiated Lantus yesterday, but still above goal. Will slightly increase. * Post-prandial BSG's elevated yesterday for 2 of 3 checks, both >200 mg/dL. Will tighten CHO ratio. Tightened again at lunch today 2nd lunch BSG still >200 mg/dL despite tightening this AM 02/14 * Stressors stable - no dexamethasone since 02/12 * AM fasting BSG elevated after holding basal yesterday. Will initiate low-dose Lantus as only a small amount of NPH was adequate to control AM fasting BSG will on steroids * Post-prandial BSG's elevated x3 yesterday >160 mg/dL. Will slightly tighten correction factor and CHO ratio PLAN FOR INPATIENT GLYCEMIC CONTROL: * Hold outpatient oral diabetes medications * Basal insulin * Lantus 14 units SC daily * Bolus insulin * NovoLog per scale ACHS or Q6hrs while NPO * Goal Range: Low 110 mg/dL - High 140 mg/dL * Correction Factor: 35 mg/dL/unit * Carb ratio: 7 g CHO/unit (except lunch, which is 9 g CHO/unit) PLAN FOR DISCHARGE: * Continue home glipizide and metformin, assuming that no contraindications exist at discharge and assuming patient is not experiencing frequent hypoglycemia as an outpatient
--- NOTE | 2021-02-18 11:43 | Ultrasound Report ---
BILATERAL LOWER EXTREMITY VENOUS DOPPLER HISTORY: History of pulmonary emboli. Assess for DVT. COMPARISON STUDY: None. FINDINGS: There is normal compressibility, flow, and augmentation within the bilateral lower extremit y deep venous systems. IMPRESSION: No DVT within the right or left lower extremity. ACT 112: Negative or not required by law. Electronically signed by: Thad Dumont M.D. 02/18/2021 11:42 AM
[2021-02-18] MEDS ORDERED: COUGH DROP (SUGAR FREE) LOZ 24 LOZ/1 BOX BUCCAL PRN (20:29)
--- NOTE | 2021-02-18 22:16 | Hospitalist Progress Note ---
Date of Service February 18, 2021 Assessment & Plan (1) Acute respiratory failure with hypoxia: Plan: Resolved. off O2 now x 72 hours. o2 sats borderline low only with activity - will need to be assessed for ambulatory O2 at discharge. Multifactorial - severe COVID-19 pneumonia, PEs, +/- bacterial superinfection. Can't rule out element of pulmonary edema - I did diurese her with PO lasix over the last few days. BMPs remained stable with such. Looks euvolemic today; no further lasix. (2) Pneumonia due to 2019 novel coronavirus: Plan: RESOLVED. She has had COVID symptoms since 01/24/21 (day 24 of illness). Now in room air at rest. Completed 10+ days of IV/PO dexamethasone. Did not receive remdesivir. Cont Rx of PEs - changed lovenox to xarelto 15mg BID on 02/16/21. Plan 21 days of such, then 20mg daily thereafter. s/p 5 days of rocephin/zithro for possible bacterial superinfection, then 2 days of augmentin. All abx are complete. I corresponded with Infection Control on Friday & airborne isolation was d/c on Friday. (3) Acute pulmonary embolism: Plan: Secondary to COVID-19 infection. Rx with lovenox initially - then changed to xarelto 15mg BID x 21 days on 02/16/21, then 20mg thereafter daily for total 6 months. Dopplers of legs negative for DVT today. (4) UTI (urinary tract infection): Plan: 2nd klebsiella x 2 different species. s/p 7-day course of IV/PO abx. Off abx at this time. (5) Diabetes mellitus: Plan: Cont to Hold glipizide and metformin pharmacy glycemic consult appreciated adequate control at discharge would resume PO meds HbA1C 7.5% (6) HLD (hyperlipidemia): Plan: Continue simvastatin (7) Chronic kidney disease, stage 3a: Plan: BMPs very stable this admission recheck in am Plan: cont PT, OT for weakness, debility updated daughter by phone multiple times this week including 02/17/21 auth pending for rehab at [facility] d/c once approved for rehab - hopefully Friday Admission and Anticipated Discharge Date Admission Date: February 10, 2021 Subjective no events overnight feeling well denies any complaints only issue is residual RAGSDALE - but it is mild eating well Review of Systems Review of Systems: gen - mild fatigue only CV - no chest pain or orthopnea pulm - scant cough, mild RAGSDALE, no dyspnea at rest gi - no N/V/diarrhea Physical Exam Physical Exam: gen - NAD, looks great mouth - MMM, no lesions neck - no JVD heart - RRR, s1 s2, 2/6 systolic murmur LLSB - no changes lungs - bibasilar fine/dry rales - no change abd - soft NT ND BS+ ext - no edema, pulses 2+ b/l psych - a/o x 3, full affect Results & Data Results & Data ([facility]) Vital Signs (Past 12 Hours) Vital Signs Temp Pulse Resp BP Pulse Ox 02/18/21 15:00 36.5 C 83 16 105/62 95 Laboratory Results Laboratory Results - last 24 hr 02/18/21 02/18/21 02/18/21 07:27 07:58 11:15 Sodium 137 Potassium 3.9 Chloride 105 Carbon Dioxide 26 Anion Gap 6.0 BUN 12 Creatinine 0.66 Est Cr Clr Drug Dosing 49.3 Est GFR ( Amer) 92.7 Est GFR (Non-Af Amer) 80.0 BUN/Creatinine Ratio 18.4 Glucose 132 H POC Glucose 120 H 190 H Calcium 9.1 02/18/21 02/18/21 16:34 20:35 Sodium Potassium Chloride Carbon Dioxide Anion Gap BUN Creatinine Est Cr Clr Drug Dosing Est GFR ( Amer) Est GFR (Non-Af Amer) BUN/Creatinine Ratio Glucose POC Glucose 71 209 H Calcium PG Care Time/CCT Total # of Minutes Spent Total Time Spent with Patient: Total time spent is greater than 50% in coordination of care (as documented) at patient's floor/unit and/or counseling patient: Coding Level of Care Code 39884 Subseq Hosp Care Lvl 2 Diagnoses Acute respiratory failure with hypoxia J96.01 Pneumonia due to 2019 novel coronavirus U07.1; J12.82 Acute pulmonary embolism I26.99 UTI (urinary tract infection) N39.0 Diabetes mellitus E11.9 HLD (hyperlipidemia) E78.5 Chronic kidney disease, stage 3a N18.31
--- NOTE | 2021-02-19 08:18 | Hospitalist Progress Note ---
Date of Service February 19, 2021 Assessment & Plan (1) Acute respiratory failure with hypoxia: Plan: Resolved, on exertion only. Multifactorial - COVID-19 pneumonia, PEs, +/- bacterial superinfection. Awaiting insurance authorization for [facility] Medically stable for discharge pending placement (2) Pneumonia due to 2019 novel coronavirus: Plan: RESOLVING. She has had COVID symptoms since 01/24/21. Now in room air. Completed 10+ days of IV/PO dexamethasone. Did not receive remdesivir. Cont Rx of PEs - changed lovenox to xarelto 15mg BID [02/16]. Plan 21 days of such, then 20mg daily thereafter. s/p 5 days of rocephin/zithro for possible bacterial superinfection, then 2 days of Augmentin. All abx are complete. Isolation now discontinued (3) Acute pulmonary embolism: Plan: Secondary to COVID-19 infection. Continue Xarelto US venous dopplers negative (4) UTI (urinary tract infection): Plan: Grew out klebsiella during prior admission but this was not treated. grew klebsiella x 2 different species this admission. s/p 7-day course of IV/PO abx -- abx now complete. (5) Diabetes mellitus: Plan: HbA1C 7.5 Cont to Hold glipizide and metformin pharmacy glycemic consult appreciated adequate control (6) HLD (hyperlipidemia): Plan: Continue simvastatin (7) Chronic kidney disease, stage 3a: Plan: BMP again stable today repeat BMP in am due to lasix today Plan: cont PT, OT for weakness, debility auth pending for rehab at [facility] can d/c once approved for rehab med/surg non-isolation room Admission and Anticipated Discharge Date Admission Date: February 10, 2021 Subjective No acute events overnight. Still feeling very fatigued with mild shortness of breath but much improved since admission. No fever or chills. Review of Systems Review of Systems: All systems reviewed & are unremarkable except as noted in HPI & below Physical Exam Constitutional: WD/WN, vitals as above ENMT: Mouth: oral mucous membranes not dry Neck: trachea midline, no thyromegaly Respiratory: normal respiratory effort and able to speak in complete sentences; no cough, normal respiratory pattern, not tachypneic, expiratory phase not prolonged, no audible wheezes, no pursed lip breathing and no stridor Auscultation: + crackles (bilateral fine crackles bibasal); no diminished lung sounds and no wheezes Cardiovascular: RRR, no murmur, no edema Gastrointestinal (Abdomen): Inspection/Auscultation: normal bowel sounds Percussion/Palpation: abdomen soft; abdomen nontender, no guarding and abdomen not rigid Skin: no rashes, warm and dry Neurologic: moves all extremities and awake; no focal motor deficits (no lateralizing weakness) and not confused Psychiatric: A+Ox3, euthymic affect Results & Data Results & Data ([facility]) Vital Signs (Past 12 Hours) Vital Signs Temp Pulse Resp BP BP Pulse Ox 02/19/21 07:26 36.7 C 89 16 107/65 95 02/19/21 03:12 36.7 C 93 H 19 99/59 L 94 02/18/21 23:03 36.9 C 104 H 18 102/59 L 92 PG Care Time/CCT Total # of Minutes Spent Total Time Spent with Patient: Total time spent is greater than 50% in coordination of care (as documented) at patient's floor/unit and/or counseling patient: Coding Level of Care Code 04470 Subseq Hosp Care Lvl 1 Diagnoses Acute respiratory failure with hypoxia J96.01 Pneumonia due to 2019 novel coronavirus U07.1; J12.82 Acute pulmonary embolism I26.99 UTI (urinary tract infection) N39.0 Diabetes mellitus E11.9 HLD (hyperlipidemia) E78.5 Chronic kidney disease, stage 3a N18.31
[2021-02-19] MEDS: INSULIN ASPART 100 UNITS/ML 3 ML PEN SC SCH ×5 (08:28→21:21)
[2021-02-19] MEDS: RIVAROXABAN 15 MG TAB PO SCH ×2 (08:30→21:21)
[2021-02-19] MEDS: SIMVASTATIN 10 MG TAB PO SCH (08:30)
[2021-02-19] MEDS: guaiFENesin 600 MG TABCR PO SCH ×2 (08:30→21:21)
[2021-02-19] MEDS: ADVANCED PROBIOTIC 1250 MG CAPSULE PO SCH (08:30)
[2021-02-19] MEDS: PANTOprazole 40 MG TAB PO SCH (08:30)
[2021-02-19] MEDS: INSULIN GLARGINE SOLOSTAR 100 UNITS/ML 3 ML PEN SC SCH (08:31)
[2021-02-19 08:48] LABS: Hematocrit (blood only) 36.3 % (37-47); Hemoglobin 11.9 g/dL (12.0-16.0); Mean Corpuscular Hemoglobin 30.6 pg (25-34); Mean Corpuscular Hgb Conc 32.8 g/dL (32-36); Mean Corpuscular Volume 93.3 fL (80-100); Mean Platelet Volume 10.3 fL (7.4-10.4); Platelet Count 213 K/uL (130-400); RDW Coefficient of Variation 13.6 % (11.5-14.5); RDW Standard Deviation 45.8 fL (36.4-46.3); Red Blood Count 3.89 M/uL (4.2-5.4); White Blood Count 4.12 K/uL (4.8-10.8)
--- NOTE | 2021-02-19 11:44 | Pharmacy Report ---
Pharmacy Glycemic Short Note 2 - Date of Service February 19, 2021 - Glycemic Short BSG Results (Last 24 hours): 02/18/21 02/18/21 02/19/21 16:34 20:35 08:27 POC Glucose 71 209 H 185 H 02/19/21 11:23 POC Glucose 263 H OUTPATIENT ANTIDIABETIC REGIMEN: * metformin * glipizide * HbA1c 7.5% on 02/11/21 ASSESSMENT: 02/19/21 * Patient's BSGs yesterday were [phone] mg/dL. Patient received 20 units of insulin yesterday with 14 units of basal and 6 units of bolus. * Patient's fasting obtained after meal so will continue current Lantus. * Patient rapidly corrects after hyperglycemia so will loosen CF slightly. Tighten Novolog as patient appears to require more carbohydrate coverage. 02/18 * Pt has received 27 units of insulin over the past 24hrs * 14 units of basal with Lantus * 13 units of bolus with NovoLog * BSGs [phone] mg/dl * Blood sugar rise breakfast to lunch - tighten CR at breakfast * No other changes needed at this time 02/16 * Stressors stable * Severe hypoglycemia noted prior to dinner yesterday after CHO ratio tightened a 2nd time. Will loosen CHO ratio back to previous, and loosen even further with lunch check to prevent severe low at dinner * AM fasting BSG still slightly above goal range, however, Lantus is not yet at steady state. Will therefore continue same dose 02/15 * Stressors stable * AM fasting BSG trended down after initiated Lantus yesterday, but still above goal. Will slightly increase. * Post-prandial BSG's elevated yesterday for 2 of 3 checks, both >200 mg/dL. Will tighten CHO ratio. Tightened again at lunch today 2nd lunch BSG still >200 mg/dL despite tightening this AM 02/14 * Stressors stable - no dexamethasone since 02/12 * AM fasting BSG elevated after holding basal yesterday. Will initiate low-dose Lantus as only a small amount of NPH was adequate to control AM fasting BSG will on steroids * Post-prandial BSG's elevated x3 yesterday >160 mg/dL. Will slightly tighten correction factor and CHO ratio PLAN FOR INPATIENT GLYCEMIC CONTROL: * Hold outpatient oral diabetes medications * Basal insulin * Lantus 14 units SC daily * Bolus insulin * NovoLog per scale ACHS or Q6hrs while NPO * Goal Range: Low 110 mg/dL - High 140 mg/dL * Correction Factor: 35 mg/dL/unit * Carb ratio: 6 g CHO/unit PLAN FOR DISCHARGE: * Continue home glipizide and metformin, assuming that no contraindications exist at discharge and assuming patient is not experiencing frequent hypoglycemia as an outpatient
[2021-02-20] MEDS: MELATONIN 3 MG TAB PO PRN (02:17)
[2021-02-20] MEDS: guaiFENesin 600 MG TABCR PO SCH ×2 (09:13→20:25)
[2021-02-20] MEDS: RIVAROXABAN 15 MG TAB PO SCH ×2 (09:13→20:25)
[2021-02-20] MEDS: ADVANCED PROBIOTIC 1250 MG CAPSULE PO SCH (09:13)
[2021-02-20] MEDS: PANTOprazole 40 MG TAB PO SCH (09:13)
[2021-02-20] MEDS: INSULIN GLARGINE SOLOSTAR 100 UNITS/ML 3 ML PEN SC SCH (09:14)
[2021-02-20] MEDS: SIMVASTATIN 10 MG TAB PO SCH (09:14)
[2021-02-20] MEDS: INSULIN ASPART 100 UNITS/ML 3 ML PEN SC SCH ×4 (09:17→20:47)
--- NOTE | 2021-02-20 12:18 | Hospitalist Progress Note ---
Date of Service February 20, 2021 Assessment & Plan (1) Acute respiratory failure with hypoxia: Plan: Resolved, on exertion only. Multifactorial - COVID-19 pneumonia, PEs, +/- bacterial superinfection. Awaiting insurance authorization for [facility] Medically stable for discharge pending placement (2) Pneumonia due to 2019 novel coronavirus: Plan: Improving. She has had COVID symptoms since 01/24/21. Now in room air. Completed 10+ days of IV/PO dexamethasone. Did not receive remdesivir. Cont Rx of PEs - changed lovenox to xarelto 15mg BID [02/16]. Plan 21 days of such, then 20mg daily thereafter. s/p 5 days of rocephin/zithro for possible bacterial superinfection, then 2 days of Augmentin. All abx are complete. Isolation now discontinued (3) Acute pulmonary embolism: Plan: Secondary to COVID-19 infection. Continue Xarelto US venous dopplers negative (4) UTI (urinary tract infection): Plan: Grew out klebsiella during prior admission but this was not treated. grew klebsiella x 2 different species this admission. s/p 7-day course of IV/PO abx -- abx now complete. (5) Diabetes mellitus: Plan: HbA1C 7.5 Cont to Hold glipizide and metformin pharmacy glycemic consult appreciated adequate control (6) HLD (hyperlipidemia): Plan: Continue simvastatin (7) Chronic kidney disease, stage 3a: Plan: BMP again stable today repeat BMP in am due to lasix today Plan: cont PT, OT for weakness, debility can d/c once approved for rehab, awaiting [facility] feedback, cannot go to [facility] until 02/24 med/surg non-isolation room Admission and Anticipated Discharge Date Admission Date: February 10, 2021 Subjective No acute events overnight. Feels at her baseline today. Awaiting placement. Review of Systems Review of Systems: All systems reviewed & are unremarkable except as noted in HPI & below Physical Exam Constitutional: WD/WN, vitals as above ENMT: Mouth: oral mucous membranes not dry Respiratory: normal respiratory effort and able to speak in complete sentences; no cough, normal respiratory pattern, not tachypneic, expiratory phase not prolonged, no audible wheezes, no pursed lip breathing and no stridor Auscultation: + crackles (bilateral fine crackles bibasal); no diminished lung sounds and no wheezes Cardiovascular: RRR, no murmur, no edema Results & Data Results & Data ([facility]) Vital Signs (Past 12 Hours) Vital Signs Temp Pulse Resp BP Pulse Ox 02/20/21 07:39 36.3 C L 81 18 111/65 97 PG Care Time/CCT Total # of Minutes Spent Total Time Spent with Patient: Total time spent is greater than 50% in coordination of care (as documented) at patient's floor/unit and/or counseling patient: Coding Level of Care Code 76993 Subseq Hosp Care Lvl 1 Diagnoses Acute respiratory failure with hypoxia J96.01 Pneumonia due to 2019 novel coronavirus U07.1; J12.82 Acute pulmonary embolism I26.99 UTI (urinary tract infection) N39.0 Diabetes mellitus E11.9 HLD (hyperlipidemia) E78.5 Chronic kidney disease, stage 3a N18.31
[2021-02-21] MEDS: MELATONIN 3 MG TAB PO PRN ×2 (01:13→20:59)
[2021-02-21] MEDS: ADVANCED PROBIOTIC 1250 MG CAPSULE PO SCH (09:06)
[2021-02-21] MEDS: SIMVASTATIN 10 MG TAB PO SCH (09:06)
[2021-02-21] MEDS: INSULIN GLARGINE SOLOSTAR 100 UNITS/ML 3 ML PEN SC SCH (09:07)
[2021-02-21] MEDS: guaiFENesin 600 MG TABCR PO SCH ×2 (09:07→20:59)
[2021-02-21] MEDS: PANTOprazole 40 MG TAB PO SCH (09:07)
[2021-02-21] MEDS: RIVAROXABAN 15 MG TAB PO SCH ×2 (09:07→20:58)
[2021-02-21] MEDS: INSULIN ASPART 100 UNITS/ML 3 ML PEN SC SCH ×4 (09:09→22:05)
--- NOTE | 2021-02-21 09:17 | Pharmacy Report ---
Pharmacy Glycemic Short Note 2 - Date of Service February 21, 2021 - Glycemic Short BSG Results (Last 24 hours): 02/20/21 02/20/21 02/20/21 11:59 16:46 20:45 POC Glucose 151 H 136 H 130 H 02/21/21 08:04 POC Glucose 133 H OUTPATIENT ANTIDIABETIC REGIMEN: * metformin * glipizide * HbA1c 7.5% on 02/11/21 ASSESSMENT: 02/21/21 * Patient's BSGs yesterday were [phone] mg/dL. Patient received 33 units of insulin yesterday with 20 units of basal and 13 units of bolus. * Fasting today is 133 mg/dL. Continue Lantus. * BSGs stable throughout the day so continue current regimen. 02/19/21 * Patient's BSGs yesterday were [phone] mg/dL. Patient received 20 units of insulin yesterday with 14 units of basal and 6 units of bolus. * Patient's fasting obtained after meal so will continue current Lantus. * Patient rapidly corrects after hyperglycemia so will loosen CF slightly. Tighten Novolog as patient appears to require more carbohydrate coverage. 02/18 * Pt has received 27 units of insulin over the past 24hrs * 14 units of basal with Lantus * 13 units of bolus with NovoLog * BSGs [phone] mg/dl * Blood sugar rise breakfast to lunch - tighten CR at breakfast * No other changes needed at this time 02/16 * Stressors stable * Severe hypoglycemia noted prior to dinner yesterday after CHO ratio tightened a 2nd time. Will loosen CHO ratio back to previous, and loosen even further with lunch check to prevent severe low at dinner * AM fasting BSG still slightly above goal range, however, Lantus is not yet at steady state. Will therefore continue same dose 02/15 * Stressors stable * AM fasting BSG trended down after initiated Lantus yesterday, but still above goal. Will slightly increase. * Post-prandial BSG's elevated yesterday for 2 of 3 checks, both >200 mg/dL. Will tighten CHO ratio. Tightened again at lunch today 2nd lunch BSG still >200 mg/dL despite tightening this AM 02/14 * Stressors stable - no dexamethasone since 9/6 * AM fasting BSG elevated after holding basal yesterday. Will initiate low-dose Lantus as only a small amount of NPH was adequate to control AM fasting BSG will on steroids * Post-prandial BSG's elevated x3 yesterday >160 mg/dL. Will slightly tighten correction factor and CHO ratio PLAN FOR INPATIENT GLYCEMIC CONTROL: * Hold outpatient oral diabetes medications * Basal insulin * Lantus 14 units SC daily * Bolus insulin * NovoLog per scale ACHS or Q6hrs while NPO * Goal Range: Low 110 mg/dL - High 140 mg/dL * Correction Factor: 35 mg/dL/unit * Carb ratio: 6 g CHO/unit PLAN FOR DISCHARGE: * HbA1C is reasonable for patient's current age and comorbidities. * Caution should be utilized with glipizide in the elderly due to increased risk of hypoglycemia. * Could consider Lantus 14 units daily if patient has hypoglycemia with glipizide.
--- NOTE | 2021-02-21 23:50 | Hospitalist Progress Note ---
Date of Service February 21, 2021 Assessment & Plan (1) Acute respiratory failure with hypoxia: Plan: Resolved, on exertion only. Multifactorial - COVID-19 pneumonia, PEs, +/- bacterial superinfection. Medically stable for discharge pending placement (2) Pneumonia due to 2019 novel coronavirus: Plan: Improving. She has had COVID symptoms since 01/24/21. Now in room air. Completed 10+ days of IV/PO dexamethasone. Did not receive remdesivir. Cont Rx of PEs - changed lovenox to xarelto 15mg BID [02/16]. Plan 21 days of such, then 20mg daily thereafter. s/p 5 days of rocephin/zithro for possible bacterial superinfection, then 2 days of Augmentin. All abx are complete. Isolation now discontinued (3) Acute pulmonary embolism: Plan: Secondary to COVID-19 infection. Continue Xarelto US venous dopplers negative (4) UTI (urinary tract infection): Plan: Grew out klebsiella during prior admission but this was not treated. grew klebsiella x 2 different species this admission. s/p 7-day course of IV/PO abx -- abx now complete. (5) Diabetes mellitus: Plan: HbA1C 7.5 Cont to Hold glipizide and metformin pharmacy glycemic consult appreciated adequate control (6) HLD (hyperlipidemia): Plan: Continue simvastatin (7) Chronic kidney disease, stage 3a: Plan: Resolved Plan: cont PT, OT for weakness, debility can d/c once approved for rehab, awaiting [facility] feedback, cannot go to [facility] until 02/24 med/surg non-isolation room Admission and Anticipated Discharge Date Admission Date: February 10, 2021 Subjective No acute events overnight. Feels at her baseline today. No questions or concerns. Awaiting placement. Review of Systems Review of Systems: All systems reviewed & are unremarkable except as noted in HPI & below Physical Exam Constitutional: WD/WN, vitals as above ENMT: Mouth: oral mucous membranes not dry Respiratory: normal respiratory effort Auscultation: + crackles (bilateral fine crackles bibasal); no diminished lung sounds and no wheezes Cardiovascular: RRR, no murmur, no edema Gastrointestinal (Abdomen): Inspection/Auscultation: normal bowel sounds Percussion/Palpation: abdomen soft; abdomen nontender, no guarding and abdomen not rigid Skin: no rashes, warm and dry Neurologic: moves all extremities and awake; no focal motor deficits (no lateralizing weakness) and not confused Psychiatric: A+Ox3, euthymic affect Results & Data Results & Data ([facility]) Vital Signs (Past 12 Hours) Vital Signs Temp Pulse Resp BP Pulse Ox 02/21/21 22:38 36.4 C L 79 18 109/64 94 02/21/21 15:35 36.3 C L 89 16 104/68 95 PG Care Time/CCT Total # of Minutes Spent Total Time Spent with Patient: Total time spent is greater than 50% in coordination of care (as documented) at patient's floor/unit and/or counseling patient: Coding Level of Care Code 74788 Subseq Hosp Care Lvl 1 Diagnoses Acute respiratory failure with hypoxia J96.01 Pneumonia due to 2019 novel coronavirus U07.1; J12.82 Acute pulmonary embolism I26.99 UTI (urinary tract infection) N39.0 Diabetes mellitus E11.9 HLD (hyperlipidemia) E78.5 Chronic kidney disease, stage 3a N18.31
[2021-02-22] MEDS: ADVANCED PROBIOTIC 1250 MG CAPSULE PO SCH (07:48)
[2021-02-22] MEDS: SIMVASTATIN 10 MG TAB PO SCH (07:48)
[2021-02-22] MEDS: RIVAROXABAN 15 MG TAB PO SCH ×2 (07:48→20:42)
[2021-02-22] MEDS: guaiFENesin 600 MG TABCR PO SCH ×2 (07:48→20:42)
[2021-02-22] MEDS: PANTOprazole 40 MG TAB PO SCH (07:48)
[2021-02-22] MEDS: INSULIN GLARGINE SOLOSTAR 100 UNITS/ML 3 ML PEN SC SCH (08:55)
[2021-02-22] MEDS: INSULIN ASPART 100 UNITS/ML 3 ML PEN SC SCH ×4 (08:55→20:42)
--- NOTE | 2021-02-22 15:35 | Hospitalist Progress Note ---
Date of Service February 22, 2021 Assessment & Plan (1) Acute respiratory failure with hypoxia: Plan: Resolved, on exertion only. Multifactorial - COVID-19 pneumonia, PEs, +/- bacterial superinfection. Medically stable for discharge - pending safe set up at home, peer to peer for rehab denied (2) Pneumonia due to 2019 novel coronavirus: Plan: Improving. She has had COVID symptoms since 01/24/21. Now in room air. Completed 10+ days of IV/PO dexamethasone. Did not receive remdesivir. Cont Rx of PEs - changed lovenox to xarelto 15mg BID [02/16]. Plan 21 days of such, then 20mg daily thereafter. s/p 5 days of rocephin/zithro for possible bacterial superinfection, then 2 days of Augmentin. All abx are complete. Isolation now discontinued (3) Acute pulmonary embolism: Plan: Secondary to COVID-19 infection. Continue Xarelto US venous dopplers negative (4) UTI (urinary tract infection): Plan: Grew out klebsiella during prior admission but this was not treated. grew klebsiella x 2 different species this admission. s/p 7-day course of IV/PO abx -- abx now complete. (5) Diabetes mellitus: Plan: HbA1C 7.5 Cont to Hold glipizide and metformin pharmacy glycemic consult appreciated adequate control (6) HLD (hyperlipidemia): Plan: Continue simvastatin (7) Chronic kidney disease, stage 3a: Plan: Resolved Plan: cont PT, OT for weakness, debility med/surg non-isolation room Disposition - pending safe set up at home Admission and Anticipated Discharge Date Admission Date: February 10, 2021 Subjective No acute events overnight. Rehabilitation declined by [employer] as patient ambulating 250 feet with close supervision. Peer to peer performed but denied. Physical Exam Constitutional: WD/WN, vitals as above ENMT: Mouth: oral mucous membranes not dry Neck: trachea midline, no thyromegaly Respiratory: normal respiratory effort Neurologic: moves all extremities and awake; not confused Psychiatric: A+Ox3, euthymic affect Results & Data Results & Data ([facility]) Vital Signs (Past 12 Hours) Vital Signs Temp Pulse Resp BP Pulse Ox 02/22/21 07:21 36.7 C 89 17 110/63 94 PG Care Time/CCT Total # of Minutes Spent Total Time Spent with Patient: Total time spent is greater than 50% in coordination of care (as documented) at patient's floor/unit and/or counseling patient: Coding Level of Care Code 07723 Subseq Hosp Care Lvl 1 Diagnoses Acute respiratory failure with hypoxia J96.01 Pneumonia due to 2019 novel coronavirus U07.1; J12.82 Acute pulmonary embolism I26.99 UTI (urinary tract infection) N39.0 Diabetes mellitus E11.9 HLD (hyperlipidemia) E78.5 Chronic kidney disease, stage 3a N18.31
[2021-02-23] MEDS: ADVANCED PROBIOTIC 1250 MG CAPSULE PO SCH (08:07)
[2021-02-23] MEDS: guaiFENesin 600 MG TABCR PO SCH (08:07)
[2021-02-23] MEDS: RIVAROXABAN 15 MG TAB PO SCH (08:07)
[2021-02-23] MEDS: PANTOprazole 40 MG TAB PO SCH (08:07)
[2021-02-23] MEDS: SIMVASTATIN 10 MG TAB PO SCH (08:08)
[2021-02-23] MEDS: INSULIN GLARGINE SOLOSTAR 100 UNITS/ML 3 ML PEN SC SCH (09:06)
[2021-02-23] MEDS: INSULIN ASPART 100 UNITS/ML 3 ML PEN SC SCH ×3 (09:07→18:05)
--- NOTE | 2021-02-23 15:24 | Discharge Summary ---
Date of Service February 23, 2021 Admission HPI Per Admitting Provider Jeannie Walls is an 85 year old female who presents to the ER with worsening symptoms after recent COVID-19 pneumonia. Unable to get any history from patient and tells me to call her daughter. The patient denies any pain. From prior notes - initial symptoms of COVID-19 pneumonia 01/24/2021. Seen in the ER 2 days after this and diagnosed with COVID-19 pneumonia but felt better after NSS bolus and was discharged home. She returned 2 days later and was hospitalized for 4 days mainly for generalized weakness and recurrent fevers but no significant hypoxia. She was discharged home on February 01. She is now on day 18 of her illness. Of note urine culture from 01/28 grew pansensitive Klebsiella pneumoniae, she was given one dose of antibiotics in the ER for this but subsequently discontinued as suspected to be asymptomatic UTI. Her daughter reports her mothers main symptoms are loss of appetite and generalized weakness. No significant worsening of shortness of breath noticed. She feels her mother will require physical rehabilitation. Reports her POA if her son although he did not apple picker when called but I left a message. In the ER CT angiogram showed pulmonary emboli with progressive bilateral mixed reticular and airspace opacities. She is requiring 3LPM O2 to maintain O2 sats > 94%. Procalcitonin negative. She was referred to medicine for admission and ongoing management of hypoxia, COVID and pneumonia. Principal Diagnosis COVID-19 pneumonia Deconditioning Left sided pulmonary emboli Discharge Exam Constitutional WD/WN, vitals as above Eyes PERRL, conjunctivae normal, anicteric sclerae ENMT Mouth: oral mucous membranes not dry Neck trachea midline, no thyromegaly Respiratory normal respiratory effort Auscultation: + crackles (bilateral fine crackles bibasal); no diminished lung sounds and no wheezes Cardiovascular RRR, no murmur, no edema Gastrointestinal (Abdomen) Inspection/Auscultation: normal bowel sounds Percussion/Palpation: abdomen soft; abdomen nontender, no guarding and abdomen not rigid Skin no rashes, warm and dry Neurologic moves all extremities and awake; not confused Psychiatric A+Ox3, euthymic affect Genitourinary no CVA tenderness Discharge Data Allergies Allergy/AdvReac Type Severity Reaction Status Date / Time No Known Allergies Allergy Verified 02/10/21 16:08 Consultations 02/10/21 17:29 ED Decision to Admit Stat Ordered Studies 02/10/21 16:33 CT angio chest PE protocol Stat CLINICAL HISTORY: PE COMPARISON STUDY: January 22, 2011 TECHNIQUE: Following the IV administration of 120 mL of Optiray, CT angiogram of the thorax was performed from the thoracic inlet to the lung bases utilizing the pulmonary embolus protocol. Images are reviewed in the axial, sagittal, and coronal planes. IV contrast was administered without complication. MIP imaging was performed. A dose lowering technique was utilized adhering to the principles of ALARA. CT DOSE: 347.06 mGycm FINDINGS: There is adequate opacification within main pulmonary artery. Acute acute occlusive pulmonary embolus is seen within left lower lobe and lingular branch is of the pulmonary artery. Pulmonary artery is within upper limits of normal for size. No right heart strain is seen. Right and left atria are slightly enlarged. No pericardial effusion seen. Heavy coronary calcifications and calcifications of the mitral annulus. Aortic wall is calcified. There is no axillary, supra clavicle or internal mammary lymphadenopathy seen. Mediastinal lymph nodes are not enlarged. Prominent right hilar lymph node measuring 1.4 cm in size. Visualized portion of thyroid gland shows no evidence of focal lesions. Esophagus is normal. Thoracic aorta is normal in caliber, tortuous with extensive calcifications of i ts wall. Tracheobronchial tree is patent. Mixed reticular and airspace opacities are seen throughout bilateral lungs, predominantly peripheral distribution, lower lobe affected more than upper lobe. Evaluation of pulmonary parenchyma is limited due to motion artifact. Limited evaluation of upper abdominal viscera shows no evidence of acute abnormalities. Osseous structures: Severe diffuse osteopenia and multilevel degenerative changes of the spine. IMPRESSION: 1. Findings are positive for acute pulmonary embolus involving left lower lobe and lingular branches of the pulmonary artery. No right heart strain is seen. Main pulmonary artery is within upper limits of normal. Report will be sent to emergency Department. 2. Multifocal pneumonia/Covid. 3. Atherosclerosis. 4. The rest of findings as above. 02/18/21 10:20 US venous doppler LE BI Routine BILATERAL LOWER EXTREMITY VENOUS DOPPLER HISTORY: History of pulmonary emboli. Assess for DVT. COMPARISON STUDY: None. FINDINGS: There is normal compressibility, flow, and augmentation within the bilateral lower extremity deep venous systems. IMPRESSION: No DVT within the right or left lower extremity. Hospital Course (1) Acute respiratory failure with hypoxia: Jeannie Walls is an 86 year old female admitted to [facility] [address] from February 10 - 2020 due to generalized weakness and loss of appetite after recent COVID-[address] angiogram showed left sided pulmonary emboli which was treated initially with Lovenox but switched to Xarelto. She should continue a further 13 days of Xarelto 15mg twice a day followed by 20mg daily for the next 6 months. She continued to improve with physical therapy and are now medically stable for discharge home. [facility] to help with your mobility. Regarding her diabetes, due to low glucose levels at home recommended reducing your glipizide dose to 10mg twice a day and following up with your primary care provider for ongoing management of this. She will take her first dose of glipizide tomorrow morning as you already had insulin for today to manage your glucose levels. (2) Pneumonia due to 2019 novel coronavirus: (3) Acute pulmonary embolism: (4) UTI (urinary tract infection): (5) Diabetes mellitus: (6) HLD (hyperlipidemia): (7) Chronic kidney disease, stage 3a: Total Time Total Time Spent Total Time Spent (In Minutes): 40 Discharge Plan Discharge Items Patient Disposition: Home - Home Health Services Reason For Visit: COVID-19 PNEUMONIA, ACUTE HYPOXIC RESPIRATORY FAIL Discharge Diagnosis: COVID-19 pneumonia Deconditioning Left sided pulmonary emboli Activity: Resume your previous activity Non-emergency contact: Primary Care Provider Call non-emergency contact if: you have any medication questions and your symptoms worsen Follow-up/Referrals: Yuri Michael MD [Primary Care Provider] - Diet: Carb Consistent or DM2 Diet Texture: Mechanical soft (ground) Addtl Attending Provider Instructions: You were admitted to [facility] [address] from February 10 - 2020 due to generalized weakness and loss of appetite after recent COVID-[address] angiogram showed left sided pulmonary emboli which was treated initially with Lovenox but switched to Xarelto. Please continue a further 13 days of Xarelto 15mg twice a day followed by 20mg daily for the next 6 months. You continued to improve with physical therapy and are now medically stable for discharge home. [facility] walk[facility] to help with your mobility. Regarding your diabetes due to low glucose levels at home recommend reducing your glipizide dose to 10mg twice a day and following up with your primary care provider for ongoing management of this. Take your first dose of glipizide tomorrow morning as you already had insulin for today to manage your glucose levels. Happy 86th Birthday! Pending Studies at Discharge: No Stand-Alone Forms: My [facility], Smoking Cessation Medications and DC Order Prescriptions: New Xarelto 20 mg tablet 20 mg PO DAILY Qty: 17 RF: 0 Continued metformin 500 mg tablet 500 mg PO QAM RF: 0 simvastatin 10 mg tablet 10 mg PO DAILY RF: 0 metformin 850 mg tablet 850 mg PO QPM RF: 0 Systane Balance 0.6 % Drops 1 drp OPHTHALMIC (EYE) QID PRN (Reason: Dry Eye(S)) RF: 0 sodium chloride [Saline Mist] 0.65 % Aerosol,[place] 1 spray INTRANASAL BID PRN (Reason: nasal dryness) RF: 0 omeprazole 20 mg capsule,delayed release(DR/EC) 20 mg PO DAILY RF: 0 Changed glipizide 10 mg tablet 10 mg PO BID Qty: 0 RF: 0 Discharge Orders: Discharge Order (Routine); Ordered 02/23/21 Ordered By: Sanjay James Admission Data Admit Date/Time: 02/10/21 18:06 Attending Provider: Sanjay James Admit Provider: Sanjay James Primary Care Provider: Yuri Michael Other Interventions: Discharge Summary Assessment (RN) Last Done: 02/23/21 17:09 Coding Level of Care Code D/C DAY MANAGEMENT >30 MINS Diagnoses Acute respiratory failure with hypoxia J96.01 Pneumonia due to 2019 novel coronavirus U07.1; J12.82 Acute pulmonary embolism I26.99 UTI (urinary tract infection) N39.0 Diabetes mellitus E11.9 HLD (hyperlipidemia) E78.5 Chronic kidney disease, stage 3a N18.31
== END 2021-02-23 19:00 | disposition home health service (06) | DRG 177 ==
LOC: ED 13:47 → 2E 18:06 → SUATTDRO 18:06 → 2E 22:59 → 2W 02-17 19:54 → 3E 02-19 12:47
DX: J15.9 Unspecified bacterial pneumonia; J96.01 Acute respiratory failure with hypoxia; N18.31 Chronic kidney disease, stage 3a; I26.99 Other pulmonary embolism without acute cor pulmonale; B96.1 Klebsiella pneumoniae [K. pneumoniae] as the cause of diseases classified elsewhere; U07.1 COVID-19; J12.82 Pneumonia due to coronavirus disease 2019; R10.11 Right upper quadrant pain; Z79.899 Other long term (current) drug therapy; E11.22 Type 2 diabetes mellitus with diabetic chronic kidney disease; E78.5 Hyperlipidemia, unspecified; K80.20 Calculus of gallbladder without cholecystitis without obstruction; N39.0 Urinary tract infection, site not specified; Z79.84 Long term (current) use of oral hypoglycemic drugs